=== PATIENT | male | born 1960 | race Caucasian/White ===

== ENCOUNTER 2018-12-12 18:45 | Inpatient (IN) | payer MEDICARE, OTHER | END 2018-12-19 09:55 | disposition other institution (70) | LOC: 4TH 12-14 07:46 → ER 18:45 → ICU 21:00 | PROC: 02HV33Z Insertion of Infusion Device into Superior Vena Cava, Percutaneous Approach (ICD-10-PCS; principal; 2018-12-16 13:28) | DX: A41.9 Sepsis, unspecified organism (principal); R65.20 Severe sepsis without septic shock; E11.52 Type 2 diabetes mellitus with diabetic peripheral angiopathy with gangrene; E11.01 Type 2 diabetes mellitus with hyperosmolarity with coma; L03.116 Cellulitis of left lower limb; N17.9 Acute kidney failure, unspecified; E87.0 Hyperosmolality and hypernatremia; E87.2 Acidosis; E86.0 Dehydration; E11.40 Type 2 diabetes mellitus with diabetic neuropathy, unspecified; J44.9 Chronic obstructive pulmonary disease, unspecified; I10 Essential (primary) hypertension; F17.210 Nicotine dependence, cigarettes, uncomplicated; M19.91 Primary osteoarthritis, unspecified site; Z79.4 Long term (current) use of insulin; Z87.442 Personal history of urinary calculi; Z86.718 Personal history of other venous thrombosis and embolism; Z86.711 Personal history of pulmonary embolism; Z95.828 Presence of other vascular implants and grafts ==

== ENCOUNTER 2018-12-19 08:44 | Inpatient (IN) | payer MEDICARE ==
[~2018-12-19] VITALS: Ht 188 cm; Wt 70.9 kg
[~2018-12-19 08:44] MED LIST: BISA10SU6 RC; GABA-488 PEG; GABA-488 PO; HUM100VI SQ; HUM100VI4 SQ; INSA70301U SQ; INSU100V5 SQ; IPRA3AMP11 INH; LEVO750P2 IV; Levofloxacin GT; OXYC1TAB16 GT; OXYC1TAB16 PEG; SENN1TAB76 JT; Sertraline Hcl JT; WARF6TAB PO; Warfarin Sod GT; Warfarin Sod JT; ZLP5T PO; ZOLP5TAB6 PO
--- NOTE | 2018-12-19 10:05 | NUR ---
Pilo admitted to room 230-1, with an admitting diagnosis of Left Great toe amputation, on 12/19/18 from via 4th floor [facility], via staff transportation. Pilo introduced to surroundings, call light, bed controls, phone, TV, temperature control, lights, meal times, smoking policy, visitor policy, side rail policy, bathrooms and showers. Patient Rights given to patient in the handbook. Pilo verbalizes understanding that [facility] is not responsible for the loss or damage to any personal effects or valuables that are kept in the patients possession during their hospitalization. The following Patient Care Plans were discussed with the Diabetic, Wound Care, and Impaired Mobility and Discharge Planning. Pilo verbalizes understanding of Interdisciplinary Patient Education. Patient and/or family were informed about the Rapid Response Team and its purpose. Patient currently has wound vac intact to LLE, wound care team came and reinforced dressing due to air leak. No issues noted since adjustment. Pain has currently been controlled on ARU.
[2018-12-19] MEDS ORDERED: LOPERAMIDE 2 MG (IMODIUM) CAP PO PRN (10:45)
[2018-12-19] MEDS ORDERED: ONDANSETRON 4 MG/2 ML (SDV) Z0FRAN IV PRN (10:45)
[2018-12-19] MEDS ORDERED: ONDANSETRON 4 MG/2 ML (SDV) Z0FRAN IVP PRN (10:45)
[2018-12-19] MEDS ORDERED: CALCIUM CARBONATE 500 MG (TUMS) TAB.CHEW PO PRN (10:45)
[2018-12-19] MEDS ORDERED: DOCUSATE SODIUM 100 MG (COLACE) CAP PO PRN (10:45)
[2018-12-19] MEDS ORDERED: ACETAMINOPHEN 500 MG TAB (TYLENOL) PO PRN ×2 (10:45)
[2018-12-19] MEDS ORDERED: IBUPROFEN TABLET 200 MG TAB PO PRN (10:45)
[2018-12-19] MEDS ORDERED: diphenhydrAMINE 25 MG TAB (BENADRYL) PO PRN (10:45)
[2018-12-19] MEDS ORDERED: RT-ALBUTEROL/IPRATROPIUM 3 ML (DUONEB) VIAL INH PRN (10:45)
--- NOTE | 2018-12-19 11:00 | Physical Therapy Evaluation ---
PT Evaluation-General Medical Diagnosis Admission Date Dec 19, 2018 at 10:05 Medical Diagnosis: osteomyelitis left great toe/post amputation Onset Date: Dec 16, 2018 Therapy Diagnosis Therapy Diagnosis: weakness; abn gait Height/Weight Height (Feet): 6 Height (Inches): 2.00 Weight (Pounds): 156 Weight (Ounces): 6.4 Precautions Precautions/Isolations: Standard Precautions Weight Bear Status Right Lower Extremity: Right Full Weight Bearing Left Lower Extremity: Left Non Weight Bearing Wound vac left great toe area Referral Physician: Mitsi Reason for Referral: Evaluation/Treatment Medical History Pertinent Medical History: COPD, DM, HTN Additional Medical History neuropathy; acute kidney failure. Current History Pt admitted to hospital on 12/12/18 with osteomyelitis left foot and septic shock. He is post left great toe amputation on 12/16/18 and subsequently has a wound vac in place. Reviewed History: Yes Social History Home: Single Level Current Living Status: Friend Pt has a few options for discharge placement. He is currently staying in [place] with a friend and reports they will have a ramp. He could also go to his brother's home in which he stays in a garage that has a level entry or he could go to his sister's home, in which he says has 5 steps with a handrail to enter. He is unsure where he will discharge to at this time. Prior/Core FIM Prior Level of Function Therapy Code Descriptions/Definitions Functional [place] Measure: 0=Not Assessed/NA 4=Minimal Assistance 1=Total Assistance 5=Supervision or Setup 2=Maximal Assistance 6=Modified [place] 3=Moderate Assistance 7=Complete [place] Therapy Quality Codes: 6 Independent with activity with or without an assistive device 5 Patient requires set up or clean up by helper. Patient completes activity by themselves 4 Supervision or touching assist (CGA). [place] provide cues , steadying assist 3 The helper provides less than half the effort to complete the activity 2 The helper provides more than half the effort to complete the activity 1 Dependent. The helper does all the effort to complete an activity 7 Patient refused to complete or attempt activity 9 The patient did not perform the activity before the current illness or injury 88 Not attempted due to Medical conditions or safety concerns Functional Abilities and Goals: Independent: Patient completed the activities by him/herself, with or without an assistive device, with no assistance from a helper. Needed Some Help: Patient needed partial assistance from another person to complete activities. Dependent: A helper completed the activities for the patient. Unknown: Not Applicable: Bed Mobility: 7 Transfers (B,C,W/C) (FIM): 7 Gait: 7 Stairs: 7 Indoor Mobility (Ambulation): Independent Stairs: Independent community ambulator and still drives. He reports he was active and helping his friend do construction work on his home. Pt reports he has a cane, but it needs a rubber tip. Reports he thinks he will also have access to a walker and a commode at discharge. PT Evaluation-Current Subjective Pt agreeable to PT. Reports he wants to get stronger so he can discharge home. Pain Numeric Pain Scale: 7 Location: Left Location Body Site: Toe (great toe amputation) Pain Description: Ache Comment: Reports he has taken pain meds; isnt asking for more medication at this yary Pt/Family Goals His goals is to discharge from the hospital at a mod indep level; unsure where he will dc to. Objective Patient Orientation: Person, Place, Time, Situation Problem Solving: Good wound vac ROM/Strength ROM Lower Extremities WFL Strenght Lower Extremities Right LE is WFL; left LE is grossly 4-/5 Integumentary/Posture Integumentary Refer to nursing documentation. Bowel Incontinence: No Bladder Incontinence: No Posture normal and symmetrical; upright Neuromuscular (Tone, Coordination, Reflexes) No noted functional deficits. Sensory Vision: Functional Hearing: Functional Hand Dominance: Right Sensation Right Lower Extremit: Intact Sensation Left Lower Extremity: Intact Transfers Therapy Code Descriptions/Definitions Functional [place] Measure: 0=Not Assessed/NA 4=Minimal Assistance 1=Total Assistance 5=Supervision or Setup 2=Maximal Assistance 6=Modified [place] 3=Moderate Assistance 7=Complete [place] Therapy Quality Codes: 6 Independent with activity with or without an assistive device 5 Patient requires set up or clean up by helper. Patient completes activity by themselves 4 Supervision or touching assist (CGA). [place] provide cues , steadying assist 3 The helper provides less than half the effort to complete the activity 2 The helper provides more than half the effort to complete the activity 1 Dependent. The helper does all the effort to complete an activity 7 Patient refused to complete or attempt activity 9 The patient did not perform the activity before the current illness or injury 88 Not attempted due to Medical conditions or safety concerns Transfers (B, C, W/C) (FIM): 3 Roll Left to Right (QC): 4 Supine to/from Sit: 4 Sit to/from Stand: 3 (mod assist from standard height surface) Sit to Lying (QC): 4 Lying to Sitting/Side of Bed(Q: 4 Sit to Stand (QC): 4 Chair/Tea-fl-Ftncf Xfer(QC): 4 Car Transfer (QC): 4 CGA for all functional transfers with skilled cues for sequencing and safety 50 % of the time. Gait Does the Patient Walk?: Yes Mode of Locomotion: Both Anticipated Mode of Locomotion: Both Gait (FIM): 1 Distance (FIM): 1=up to 49 ft Walk 10 feet (QC): 4 (min assist for safety and balance. ) Walk 50 ft with 2 Turns(QC): 88 Walk 150 ft (QC): 88 Walking 10ft/uneven surface-QC: 88 (unsafe to attempt due to decreased balacne. ) Distance: 10 ft Gait Level of Assist: 4 Gait Persons Needed: 1 Gait Assistive Device: FWW Wheelchair Training Does the Pt Use a Wheelchair?: Yes Wheelchair (FIM): 4 Wheelchair Distance (FIM): 3=150 ft Wheelchair Level of Assist: 4 Wheel 50 ft with 2 turns (QC): 4 Wheel 150 ft (QC): 4 Type of Wheelchair: Manual Stairs Stairs (FIM): 0 (unsafe to attempt; new at NWB and fall risk ) 1 Step (curb) (QC): 88 4 Steps (QC): 88 12 Steps (QC): 88 If not tested on admit;explain unsafe to attempt; fall risk Balance Sitting Static: Good Sitting Dynamic: Good Standing Static: Fair Standing Dynamic: Fair Picking up an Object (QC): 88 Treatment Treatment consisted of multiple sit to stand transfer training tasks with skilled cues for hand placement and task segmentation. Pt stood at toilet to urinate with FWW with min assist for balance. Education on ARU and what to expect during stay. EDucation on NWB status. Assessment/Needs Pt presents post great toe amputation left foot. He is now NWB until further healing. Due to new NWB status, he requires additional assist with all functional transfers and is limited in gait distance. His balance is impaired as well. He will benefit from skilled P T to progress functional strength and balance to allow him to safelty transfer and ambulate functional distances to return home and care for himself. Rehab Potential: Good PT Short Term Goals Short Term Goals Time Frame: Dec 26, 2018 Transfers (B,C,W/C) (FIM): 5 Gait (FIM): 2 Distance (FIM): 3=560-49 ft Gait Assistive Device: FWW Stairs (FIM): 2 # of Steps: 1 PT Prison Goals Prison Goals PT Prison Goals Time Frame: Jan 06, 2019 Transfers (B,C,W/C) (FIM): 6 Sit to Lying (QC): 6 Lying-Sitting on Side/Bed(QC): 6 Sit to Stand (QC): 6 Roll Left to Right (QC): 6 Chair/Duv-pe-Khxjm Xfer(QC): 6 Car Transfer (QC): 6 Does the Patient Walk: Yes Gait (FIM): 6 Gait distance (FIM): 3=150 ft Walk 10 feet (QC): 6 Walk 10ft-Uneven Surface(QC): 6 Walk 50ft with 2 Turns (QC): 6 Walk 150 ft (QC): 6 Gait Assistive Device: FWW Does the Pt use WC or Scooter?: Yes Wheelchair (FIM): 6 Wheelchair distance (FIM): 3=150 ft Wheel 50 feet with 2 turns (QC: 6 Stairs (FIM): 5 # of Steps: 4 1 Step (curb) (QC): 6 4 Steps (QC): 6 12 Steps (QC): 88 Picking up an Object (QC): 88 MOd indep with all functional mobility is LTG PT Plan Problem List Problem List: Activity Tolerance, Functional Strength, Safety, Balance, Gait, Transfer, Bed Mobility Treatment/Plan Treatment Plan: Continue Plan of Care Treatment Plan: Bed Mobility, Education, Functional Activity Araceli, Functional Strength, Group Therapy, Gait, Safety, Therapeutic Exercise, Transfers Treatment Duration: Jan 06, 2019 Frequency: At least 5 of 7 days/Wk (IRF) Estimated Hrs Per Day: 1.5 hours per day Patient and/or Family Agrees t: Yes Safety Risks/Education Patient Education: Transfer Techniques, Safety Issues Teaching Recipient: Patient Teaching Methods: Demonstration, Discussion Response to Teaching: Reinforcement Needed Discharge Recommendations Therapy D/C Recommendations: Physical Therapy Home Care Time/GCodes Time In: 955 Time Out: 1055 Total Billed Treatment Time: 60 Total Billed Treatment visit EVM 30 FA 30 JENNA HOGUE PT Dec 19, 2018 11:00
--- NOTE | 2018-12-19 11:56 | NUR ---
REVIEWED MEDICATIONS THEY WERE REPORTED UPON ADMISSION TO 4TH FLOOR.
[2018-12-19] MEDS: inSUlin ASPART (NovoLOG) 1 UNIT/0.01 ML (CHARGE PER UNIT) SC SCH ×3 (12:11→21:23)
[2018-12-19 12:20] VITALS: BP 117/79
--- NOTE | 2018-12-19 13:03 | NUR ---
Initial Assessment Visited with patient regarding the inpatient rehab program. The patient reports he currently lives with friends in [place], [place]. He reports there will be an entry ramp at the home. If he is not able to return to his current living situation, he reports he can stay with his brother or sister. He reports he would stay in a finished garage with level entry at his brother's house. If he discharged to his sister's home, he would have to be able to go up and down 5 steps with a rail to enter the home. He currently uses [facility] in [place], [place] to fill prescriptions. He reports he has access to a walker and BSC that were his mother's and the equipment is currently at his brother's house. He states he does have a cane, but it is missing the rubber piece that fits on the bottom of the cane. He is noted to have a wound vac on the left great toe amputation site. The patient is cooperative and willing to participate with therapies. Discharge destination will depend upon progress and the patient's needs at time of discharge.
--- NOTE | 2018-12-19 13:27 | Occupational Therapy Eval ---
OT Evaluation-General/PLF Medical Diagnosis Admission Date Dec 19, 2018 at 10:05 Medical Diagnosis: osteomyelitis left great toe/post amputation Onset Date: Dec 16, 2018 Therapy Diagnosis Therapy Diagnosis: decreased self care skills Height/Weight Height (Feet): 6 Height (Inches): 2.00 Weight (Pounds): 156 Weight (Ounces): 6.4 Precautions Precautions/Isolations: Standard Precautions Weight Bear Status Weight Bearing Restriction: Non Weight Bearing Location Restriction: Aiden AREVALO Referral Physician: Misti Medical History Pertinent Medical History: COPD, DM, HTN Additional Medical History trach, vascular surgery, DVT, neuropathy, kidney stones, renal failure, arthritis, Current History pt s/p left great toe amputation. now with wound vac in place. Reviewed History: Yes Social History Home: Single Level Current Living Status: Friend Pt states he is not sure where he will be going at d/c. ADL-Prior Level of Function Therapy Code Descriptions/Definitions Functional [place] Measure: 0=Not Assessed/NA 4=Minimal Assistance 1=Total Assistance 5=Supervision or Setup 2=Maximal Assistance 6=Modified [place] 3=Moderate Assistance 7=Complete [place] Therapy Quality Codes: 6 Independent with activity with or without an assistive device 5 Patient requires set up or clean up by helper. Patient completes activity by themselves 4 Supervision or touching assist (CGA). [place] provide cues , steadying assist 3 The helper provides less than half the effort to complete the activity 2 The helper provides more than half the effort to complete the activity 1 Dependent. The helper does all the effort to complete an activity 7 Patient refused to complete or attempt activity 9 The patient did not perform the activity before the current illness or injury 88 Not attempted due to Medical conditions or safety concerns Functional Abilities and Goals: Independent: Patient completed the activities by him/herself, with or without an assistive device, with no assistance from a helper. Needed Some Help: Patient needed partial assistance from another person to complete activities. Dependent: A helper completed the activities for the patient. Unknown: Not Applicable: Self Care: Independent Functional Cognition: Independent Drive Self: Yes OT Current Status Subjective Pt sitting in chair, agrees to therapy. Pt reports 7/10 pain in left foot. Mental Status/Objective Patient Orientation: Person, Place, Situation Attachments: Other-See Comments Current Glasses/Contacts: Yes Hearing Aids: No Dentures/Partials: Yes Hand Dominance: Right Upper Extremity ROM grossly WFL Upper Extremity Coordination intact Upper Extremity Sensation intact per pt report Upper Extremity Strength grossly 4/5 ADL-Treatment ADL-Current Pt participated in UE assessment while seated. Sponge bath completed seated in chair. Upper body bathing completed with set up. Pt able to wash bilateral LE with SBA. Unable to wash left foot secondary to wound vac placement. Pt washed buttocks by weight shifting side to side rather than standing. Don pullover shirt with set up. Pt required assist to start shorts over left foot, but was able to thread right foot into shorts. Pulled shorts up over hips while seated. Don right sock with set up. Unable to don left sock secondary to wound vac. Grooming tasks completed seated in chair. Pt brushed dentures and combed hair with set up. Eating (FIM): 6 Eating (QC): 6 Grooming (FIM): 5 Oral Hygiene (QC): 5 Bathing (FIM): 4 Shower/Bathe Self (QC): 4 Upper Body Dressing (FIM): 5 Upper Body Dressing (QC): 5 Lower Body Dressing (FIM): 4 Lower Body Dressing (QC): 3 On/Off Footwear (QC): 5 Toilet/Commode Transfer (FIM): 4 (pt demonstrates ability to perform transfer with minimal assistance using FWW. NWB left LE) Toilet Transfer (QC): 4 Education OT Patient Education: Rehab process Teaching Recipient: Patient Teaching Methods: Discussion Response to Teaching: Verbalize Understanding OT Short Term Goals Short Term Goals Time Frame: Dec 26, 2018 Toileting(FIM): 5 Transfers (B,C,W/C) (FIM): 5 Toilet/Commode Transfer(FIM): 5 Additional Short Term Goals: 1-Demonstrate ADL Tasks, 2-Verbalize Understanding , 3-ImproveStrength/Araceli 1=Demonstrate adherence to instructed precautions during ADL tasks. 2=Patient will verbalize/demonstrate understanding of assistive devices/ modifications for ADL. 3=Patient will improve strength/tolerance for activity to enable patient to perform ADL's. OT Assistant Child Care Teacher Goals Assistant Child Care Teacher Goals Time Frame: Jan 09, 2019 Eating (FIM): 6 Eating (QC): 6 Groomin Oral Hygiene (QC): 6 Bathing(FIM): 6 Shower/Bathe Self (QC): 6 Upper Body Dressing(FIM): 6 Upper Body Dressing (QC): 6 Lower Body Dressing(FIM): 6 Lower Body Dressing (QC): 6 On/Off Footwear (QC): 6 Toileting(FIM): 6 Toileting Hygiene (QC): 6 Toilet/Commode Transfer(FIM): 6 Toilet/Commode Transfer (QC): 6 Additional Goals: 1-Demonstrate ADL Tasks, 2-Verbalize Understanding, 3- ImproveStrength/Araceli 1=Demonstrate adherence to instructed precautions during ADL tasks. 2=Patient will verbalize/demonstrate understanding of assistive devices/ modifications for ADL. 3=Patient will improve strength/tolerance for activity to enable patient to perform ADL's. OT Education/Plan Problem List/Assessment Assessment: Decreased Activ Tolerance, Decreased UE Strength, Dependent Transfers, Impaired I ADL's, Impaired Self-Care Skills Pt s/p left great toe amputation. Pt now has wound vac in place and is NWB left foot. Pt demonstrates decreased mobility, strength, ADL functioning, and activity tolerance. Pt to benefit from skilled OT intervention for ADL training , transfers, strengthening, and home safety education to increase functional independence and allow safe discharge plan. Discharge Recommendations Plan/Recommendations: Continue POC Treatment Plan/Plan of Care Treatment,Training & Education: Yes Patient would benefit from OT for education, treatment and training to promote independence in ADL's, mobility, safety and/or upper extremity function for ADL' s. Plan of Care: ADL Retraining, Functional Mobility, Group Exercise/Act as Ind, UE Funct Exercise/Act Treatment Duration: Jan 09, 2019 Frequency: At least 5 of 7 days/Wk (IRF) Estimated Hrs Per Day: 1.5 hours per day Agreement: Yes Rehab Potential: Good Time/GCodes Start Time: 11:00 Stop Time: 12:00 Total Time Billed (hr/min): 60 Billed Treatment Time 1 visit EVM(15minutes), ADLx3(45minutes) DONNIE COVINGTON OT Dec 19, 2018 13:27
[2018-12-19] MEDS: ENOXAPARIN 40 MG/0.4 ML (LOVENOX) SYR SC SCH (14:26)
[2018-12-19] MEDS: fentaNYL INJECTION 100 MCG/2 ML AMP IVP PRN (14:27)
--- NOTE | 2018-12-19 14:34 | ST Cognitive Linguistic Eval ---
Speech Evaluation-General Medical Diagnosis osteomyelitis left great toe/post amputation Onset Date: Dec 16, 2018 Therapy Diagnosis Therapy Diagnosis: Cognitive-communication Precautions Precautions/Isolations: Standard Precautions Medical History Pertinent Medical History: COPD, DM, HTN Reviewed History: Yes Social History Current Living Status: Friend Speech PLF-Current Status Prior Level of Function Patient lived at his own home and was independent with his daily needs. Subjective Patient was pleasant and attentive during the evaluation process. Language Eval: Auditory Comprehends Simple Yes/No Ques: Functional Indent/Objects [place]: Functional Ident/Pics in [place]: Functional Follows 1-Step Commands: Functional Follows Complex Directions: Functional Follows General Conversations: Functional Language Eval: Verbal Language Completes Spontaneous Greeting: Functional Produces Auto, Serial Info: Functional Imitates Simple Words/Phrases: Functional Word Finding: Functional Requests Basic Needs: Functional States Basic Personal Info: Functional Expresses Complex Ideas: Functional Objective Cognitive Domain Attention: WNL Memory: WNL Problem Solving: Functional Executive Functions: 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 Impression Patient is a pleasant 58 year old man who was admitted to the ARU due to amputation of his left great toe. He was very pleasant during the evaluation and was a good historian. He has a positive attitude regarding his recovery and is anticipated to do as well as expected. Patient's test results are all within the normal range for cognitive communication. Communication/Social Cognition Comprehension: 7 Expression: 7 Social Interaction: 7 Problem Solvin Memory: 7 Speech Patient Assess Expression of Ideas/Wants: Expression (4) Understanding Verbal Content: Understands (4) Brief Interview-Mental Status: Yes Repetition of Three Words: Three (3) Temporal Orientation: Year: Correct (3) Temporal Orientation: Day: Correct (1) Recall : Wear to say "Sock": Yes, no cue required (2) Recall : Color: Yes, no cue required (2) Recall : Bed: Yes, no cue required (2) Memory/Recall Ability: Current season, That he or she is in a hsp/hsp unit Speech-Plan Patient/Family Goals Patient/Family Goals: Patient plans to return home post rehab. Treatment Plan Speech Therapy Treatment Plan: Discontinue ST, Goals Met Patient is not recommended for skilled ST at this time. Treatment Duration: Dec 19, 2018 Frequency: 1 time per week Estimated Hrs Per Day: .5 hour per day Rehab Potential: Good Barriers to Learning: Patient is in pain at times. Pt/Family Agrees to Plan: Yes Safety Risks/Education Teaching Recipient: Patient Teaching Methods: Discussion Response to Teaching: Verbalize Understanding Education Topics Provided: Safety within his room. Time Speech Therapy Time In: 12:45 Speech Therapy Time Out: 13:00 Total Billed Time: 15 Billed Treatment Time 1, SPSNDCOMP No YULIANA BRUCE Dec 19, 2018 14:34
--- NOTE | 2018-12-19 14:57 | Therapy Group Daily Note ---
Therapy Daily Group Note Patient Education Topic Other List Below (memory) Exercises LE Seated Exercise, UE Exercise Other/Notes Pt participated in group therapy with 4 to 1 ratio. Goals of session: Pt will verbalize understanding of memory strategies (met). Lead one UE or LE seated exercise during group therapy (met). Pt transported via w/c to [facility] for OT/PT group. Group consisted on introductions (name, place living, what would you name a cheetah), socialization , pt led UE/LE seated exercises, memory education/strategies and memory activity. Pt introduced self appropriately and actively listened to peers. Pt acknowledged understanding of memory strategies/education by verbalizing personal strategies. Pt was able to lead one exercise without difficulty then complete rest of exercises. During memory activity pt was able to match pictures on turn. Pt will benefit from group by increasing short term memory and use strategies during daily functional tasks. Pt will be able to complete UE/LE seated exercises after discharge. Pt would doze off during therapy, woke easily and answer questions appropriately. After group, pt transported via w/c back to room and laid in bed. Call light/phone in reach. All needs met in room. Start Time: 13:00 Stop Time: 14:15 Total Billed Treatment Time: 75 Total Billed Treatment 1-GRP JENNA ALLEN Dec 19, 2018 14:57
[2018-12-19] MEDS: inSUlin Protamine/ASPart 70/30 1 UNIT/0.01 ML DOSE SC SCH (16:39)
[2018-12-19] MEDS: HYDROcodone/APAP 5 MG/325 MG (LORTAB) TAB PO PRN ×2 (16:43→21:27)
[2018-12-19 18:40] VITALS: BP 142/75
[2018-12-19] MEDS: RT-ADVAIR HFA 115/21 MCG PER PUFF IH SCH (20:01)
[2018-12-20] MEDS: HYDROcodone/APAP 5 MG/325 MG (LORTAB) TAB PO PRN ×4 (02:51→21:04)
[2018-12-20] MEDS: fentaNYL INJECTION 100 MCG/2 ML AMP IVP PRN ×5 (03:38→21:38)
[2018-12-20 06:00] VITALS: BP 152/86
[2018-12-20] MEDS: inSUlin ASPART (NovoLOG) 1 UNIT/0.01 ML (CHARGE PER UNIT) SC SCH ×4 (06:30→21:05)
[2018-12-20] MEDS: inSUlin Protamine/ASPart 70/30 1 UNIT/0.01 ML DOSE SC SCH ×3 (06:31→17:26)
--- NOTE | 2018-12-20 06:45 | PM&R H&P / Post Admit Assess ---
History of Present Illness HPI/Chief Complaint CC: Left great toe amputation HPI: This is a 58-year-old white male clinic patient of [facility] with a past medical history of diabetes and 3 years ago a debilitating critical illness resulted in long course in inpatient rehab and even a feeding tube who presents to the inpatient rehab for amputation education and therapy after a left great toe amputation due to severe osteomyelitis and nonhealing wound. Patient has a wound VAC and pain is controlled. Hyperglycemia will be managed with increase insulin dose of his 70/30 insulin that he takes at home. Patient is malnourished and will be encouraged to take in adequate nutrition. He will be discharged home after recovery. Source: patient Exam Limitations: no limitations Date Seen 12/19/18 Time Seen by a Provider: 10:30 Attending Physician Nat Chappell DO [facility] Referring Physician Date of Admission Dec 19, 2018 at 10:05 Home Medications & Allergies Home Medications Reviewed patient Home Medication Reconciliation performed by pharmacy medication reconciliations fresh foods technician and/or nursing. Patients Allergies have been reviewed. Allergies Allergies Coded Allergies No Known Drug Allergies (Unverified05/08/15) Past Fyigdfy-Omptlu-Bfuqnh Hx Past Med/Social Hx: Reviewed Nursing Past Med/Soc Hx, Reviewed and Corrections made Patient Social History Marrital Status: single Employed/Student: unemployed Alcohol Use: Past History Recreational Drug Use: Yes Smoking Status: Light Tobacco Smoker Physical Abuse Screen: No Sexual Abuse: No Recent Foreign Travel: No (N) Contact w/other who traveled: No Recent Hopitalizations: No Recent Infectious Disease Expo: No Immunizations Up To Date Tetanus Booster (TDap): Unknown Pediatric: No Date of Pneumonia Vaccine: May 31, 2015 Date of Influenza Vaccine: Dec 18, 2018 Seasonal Allergies Seasonal Allergies: No Past Medical History Surgeries: Orthopedic, Tracheostomy Respiratory: COPD, Pneumonia Currently Using CPAP: No Currently Using BIPAP: No Cardiac: Deep Vein Thrombosis, Hypertension Neurological: Neuropathy Reproductive: No Sexually Transmitted Disease: No HIV/AIDS: No Genitourinary: Kidney Stones Musculoskeletal: Amputee, Arthritis Endocrine: Diabetes, Insulin dep Are Your Blood Sugars Over 250: Yes Loss of Vision: Denies Hearing Impairment: Denies Did You Recieve Any Treatments: No History of Blood Disorders: No (Previous tranfusions noted. ) Adverse Reaction to Blood Thompson: No Family History Patient reports no known family medical history. CAD Over 55 Years Old Review of Systems Constitutional: see HPI, weakness EENTM: no symptoms reported Respiratory: no symptoms reported Cardiovascular: no symptoms reported Gastrointestinal: no symptoms reported Genitourinary: no symptoms reported Musculoskeletal: no symptoms reported, other Skin: no symptoms reported Psychiatric/Neurological: No Symptoms Reported All Other Systems Reviewed Negative Unless Noted: Yes Physical Exam Physical Exam Vital Signs Vital Signs - First Documented 12/19/18 12:20 Temp 97.8 Pulse 74 Resp 16 B/P (MAP) 117/79 (92) Pulse Ox 97 O2 Delivery Room Air Capillary Refill : Height, Weight, BMI Height: 6'2.00" Weight: 156lbs. 6.4oz. [id number]; 20.1 BMI Method:Estimated General Appearance: No Apparent Distress, WD/WN, Chronically ill, Thin Eyes: Bilateral Eye Normal Inspection, Bilateral Eye PERRL HEENT: PERRL/EOMI, Normal ENT Inspection, Pharynx Normal Neck: Full Range of Motion, Normal Inspection, Non Tender, Supple, Carotid Bruit Respiratory: Chest Non Tender, Lungs Clear, Normal Breath Sounds, No Accessory Muscle Use, No Respiratory Distress Cardiovascular: Regular Rate, Rhythm, No Edema, No Gallop, No JVD, No Murmur, Normal Peripheral Pulses Gastrointestinal: Normal Bowel Sounds, No Organomegaly, No Pulsatile Mass, Non Tender, Soft Back: Normal Inspection, No CVA Tenderness, No Vertebral Tenderness Extremity: Normal Capillary Refill, Normal Inspection, Normal Range of Motion, Non Tender, No Calf Tenderness, No Pedal Edema, Other (left great toe amputation wound vac in place) Neurologic/Psychiatric: Alert, Oriented x3, No Motor/Sensory Deficits, Normal Mood/Affect Skin: Normal Color, Warm/Dry Lymphatic: No Adenopathy Results Results/Procedures Labs Patient resulted labs reviewed. Assessment/Plan Admission Diagnosis Assessment: s/p Septic shock due to cellulitis and osteomyelitis of the left great toe s/p Hyperosmolar nonketotic state requiring insulin drip s/;p Acute renal failure Long-standing debility dating back to 2014 when reviewed inpatient rehab course History of bilateral pneumonia with respiratory failure requiring intubation at [facility] 3 years ago DM on insulin Malnourished Plan: Rehab for wound vac and amputation training Insulin dose increased Admission Status: Inpatient Order (span 2 midnights) Reason for Inpatient Admission: IRF Diagnosis/Problems Diagnosis/Problems (1) Amputation toe Status: Acute (2) Diabetes mellitus with insulin therapy Status: Chronic (3) Malnourished Status: Acute Qualifiers: Malnutrition type: unspecified type Qualified Codes: E46 - Unspecified protein-calorie malnutrition (4) Osteomyelitis of left lower extremity Status: Resolved Resolution Date/Time: 12/20/18 @ 06:40 (5) COPD (chronic obstructive pulmonary disease) Status: Chronic Qualifiers: COPD type: unspecified COPD Qualified Codes: J44.9 - Chronic obstructive pulmonary disease, unspecified (6) Septic shock Status: Resolved Resolution Date/Time: 12/16/18 @ 06:41 (7) HHNC (hyperglycemic hyperosmolar nonketotic coma) Status: Resolved Resolution Date/Time: 12/16/18 @ 06:41 Post Admission Physician Asses Date seen by provider: Dec 19, 2018 Time seen by provider: 10:30 Admisison Dx: (1) Amputation toe Status: Acute The preadmission screen agrees with the post admission assessment that the patient is a good candidate for inpatient rehabilitation. The patient will have a comprehensive program of inpatient rehabilitation with a goal of maximizing level of functional independence prior to discharge home with family. The patient will have PT/OT ninety minutes per day, each discipline, five days a week for gait, strengthening, conditioning, balance, ADLs, any patient/family/caregiver training as necessary. Speech therapy to do cognitive assessment and treat as indicated. Rehabilitation nursing to assist with bowel, bladder, skin, wound care, medication administration, pain management. Wrist Hemmer to assist with discharge planning, community reentry. SCD's for DVT prophylaxis. He appears to be well motivated to participate in three hours of therapy a day. He should be able to tolerate three hours of therapy a day from a medical standpoint. He should benefit from the three hours of therapy a day. He has a reasonable discharge plan, reasonable discharge rehabilitation goals and a supportive family. He has various comorbidities that need to be closely monitored with medications and treatments adjusted on a daily basis as needed. These include: see list above Barriers to discharge for this patient who had been independent prior to this are for him to be modified independent to supervision for ADLs and mobility skills prior to discharge home with [family], so as to lessen the burden of the caregivers. Risks for this patient include: 1. Fall 2. Fracture 3. DVT 4. Pulmonary embolism 5. Wound infection 6. Skin breakdown 7. Contractures 8. Poorly controlled pain 9. Urinary retention 10. UTI 11. Respiratory infection 12. Aspiration Estimated Length of Stay: 7 days Prognosis: Rehab prognosis appears good for goal of discharge home with family modified independent to supervision for ADLs and mobility skills. General: Alert, Oriented X3, Cooperative, No Acute Distress, Other (thin) HEENT: Atraumatic, PERRLA Neck: Supple, No JVD, No Thyromegaly, +2 Carotid Pulse No Bruit, No LAD Lungs: Clear to Auscultation, Normal Air Movement Heart: Regular Rate, Normal S1, Normal S2 Abdomen: Normal Bowel Sounds, Soft, No Tenderness, No Hepatosplenomegaly, No Masses Extremities: No Clubbing, No Cyanosis, No Edema, Normal Pulses, No Tenderness/ Swelling Skin: No Rashes, No Breakdown, No Significant Lesion Neuro: Normal Speech, Strength at 5/5 X4 Ext, Normal Tone, Sensation Intact, Cranial Nerves 3-12 NL, Reflexes 2+, Other (limping gait left foot wound vac in place) Psych/Mental Status: Mental Status NL, Mood NL NAT CHAPPELL DO Dec 20, 2018 06:45
--- NOTE | 2018-12-20 07:35 | NUR ---
Pt's finger stick glucose 164 this morning. Pt received NovoLog 70/30 20 units SQ with breakfast. New order from Dr. Chappell to increase NovoLog to 25 units with meals. Will begin this order at lunch time.
[2018-12-20 08:05] LABS: HEMOGLOBIN 11.4 G/DL (13.3-17.7); MEAN PLATELET VOLUME 10.1 FL (7.4-10.4); RED CELL DISTRIBUTION WIDTH 13.8 % (10.0-14.5); WHITE BLOOD COUNT 7.3 10^3/uL (4.3-11.0)
[2018-12-20 08:24] LABS: ALANINE AMINOTRANSFERASE 11 U/L (0-55); ALBUMIN 2.7 GM/DL (3.2-4.5); ALKALINE PHOSPHATASE 96 U/L (40-136); BILIRUBIN,TOTAL 0.1 MG/DL (0.1-1.0); BUN/CREATININE RATIO 20; CALCIUM 8.8 MG/DL (8.5-10.1); CARBON DIOXIDE 23 MMOL/L (21-32); CHLORIDE 101 MMOL/L (98-107); CREATININE SERUM 0.99 MG/DL (0.60-1.30); GFR ESTIMATED > 60; GLUCOSE 282 MG/DL (70-105); POTASSIUM 4.2 MMOL/L (3.6-5.0); SODIUM 132 MMOL/L (135-145); TOTAL PROTEIN 6.7 GM/DL (6.4-8.2)
[2018-12-20] MEDS: RT-ADVAIR HFA 115/21 MCG PER PUFF IH SCH (10:37)
--- NOTE | 2018-12-20 11:39 | Physical Therapy Daily Note ---
PT Daily Note-Current Subjective Pt reporting he is in too much pain to get out of bed this morning. Transfers Therapy Code Descriptions/Definitions Functional [place] Measure: 0=Not Assessed/NA 4=Minimal Assistance 1=Total Assistance 5=Supervision or Setup 2=Maximal Assistance 6=Modified [place] 3=Moderate Assistance 7=Complete [place] Therapy Quality Codes: 6 Independent with activity with or without an assistive device 5 Patient requires set up or clean up by helper. Patient completes activity by themselves 4 Supervision or touching assist (CGA). Fine provide cues , steadying assist 3 The helper provides less than half the effort to complete the activity 2 The helper provides more than half the effort to complete the activity 1 Dependent. The helper does all the effort to complete an activity 7 Patient refused to complete or attempt activity 9 The patient did not perform the activity before the current illness or injury 88 Not attempted due to Medical conditions or safety concerns Weight Bearing Right Lower Extremity: Right Full Weight Bearing Left Lower Extremity: Left Non Weight Bearing Wound vac left great toe area Exercises Supine Ex: Ankle pumps, Quad Set, Glut sets, Heel Slides, Knee to chest, Short Arc Quads, Straight leg raise, Hip abd/add Supine Reps: 10 Assessment Performed AAROM to (B) LEs with end range stretch as tolerated. PT Short Term Goals Short Term Goals Time Frame: Dec 26, 2018 Transfers (B,C,W/C) (FIM): 5 Gait (FIM): 2 Distance (FIM): 2=647-80 ft Gait Assistive Device: FWW Stairs (FIM): 2 # of Steps: 1 PT Chcf Goals Chcf Goals PT Chcf Goals Time Frame: Jan 06, 2019 Transfers (B,C,W/C) (FIM): 6 Sit to Lying (QC): 6 Lying-Sitting on Side/Bed(QC): 6 Sit to Stand (QC): 6 Roll Left to Right (QC): 6 Chair/Fqh-cn-Dxyln Xfer(QC): 6 Car Transfer (QC): 6 Does the Patient Walk: Yes Gait (FIM): 6 Gait distance (FIM): 3=150 ft Walk 10 feet (QC): 6 Walk 10ft-Uneven Surface(QC): 6 Walk 50ft with 2 Turns (QC): 6 Walk 150 ft (QC): 6 Gait Assistive Device: FWW Does the Pt use WC or Scooter?: Yes Wheelchair (FIM): 6 Wheelchair distance (FIM): 3=150 ft Wheel 50 feet with 2 turns (QC: 6 Stairs (FIM): 5 # of Steps: 4 1 Step (curb) (QC): 6 4 Steps (QC): 6 12 Steps (QC): 88 Picking up an Object (QC): 88 PT Plan Treatment/Plan Treatment Plan: Continue Plan of Care Treatment Plan: Bed Mobility, Education, Functional Activity Araceli, Functional Strength, Group Therapy, Gait, Safety, Therapeutic Exercise, Transfers Treatment Duration: Jan 06, 2019 Frequency: At least 5 of 7 days/Wk (IRF) Estimated Hrs Per Day: 1.5 hours per day Patient and/or Family Agrees t: Yes Time/GCodes Time In: 820 Time Out: 835 Total Billed Treatment Time: 15 Total Billed Treatment visit, exercise 15 min LUDA PICKERING PT Dec 20, 2018 11:39
--- NOTE | 2018-12-20 12:31 | NUR ---
Dr. Chappell here to see patient. Informed of Mag (1.6) on 12/19/18 and no BM since 12/15. New orders for Miralax PO BID.
[2018-12-20] MEDS: ENOXAPARIN 40 MG/0.4 ML (LOVENOX) SYR SC SCH (13:33)
--- NOTE | 2018-12-20 14:13 | PM&R Progress Note ---
Subjective HPI/CC On Admission Date Seen by Provider: Dec 20, 2018 Time Seen by Provider: 12:30 CC: Left great toe amputation HPI: This is a 58-year-old white male clinic patient of [facility] with a past medical history of diabetes and 3 years ago a debilitating critical illness resulted in long course in inpatient rehab and even a feeding tube who presents to the inpatient rehab for amputation education and therapy after a left great toe amputation due to severe osteomyelitis and nonhealing wound. Patient has a wound VAC and pain is controlled. Hyperglycemia will be managed with increase insulin dose of his 70/30 insulin that he takes at home. Patient is malnourished and will be encouraged to take in adequate nutrition. He will be discharged home after recovery. Subjective/Events-last exam We'll discontinue nebulizer treatments and Advair inhaler per patient request No bowel movement and on Colace so we'll add MiraLAX Blood sugars improved since increasing 70/30 insulin home dose Pain is improved with fentanyl at times and he does try to not take pain medication Overall improving slowly Review of Systems Gastrointestinal: Constipation Musculoskeletal: leg pain Objective Exam Vital Signs Vital Signs Date Time Temp Pulse Resp B/P (MAP) Pulse Ox O2 Delivery O2 Flow Rate FiO2 12/20/18 10:37 99 Room Air 12/20/18 06:00 97.8 68 18 152/86 (108) Capillary Refill : General Appearance: No Apparent Distress, WD/WN, Chronically ill, Thin Respiratory: Chest Non Tender, Lungs Clear, Normal Breath Sounds, No Accessory Muscle Use, No Respiratory Distress Cardiovascular: Regular Rate, Rhythm, No Edema, No Gallop, No JVD, No Murmur, Normal Peripheral Pulses Extremity: Other (wound vac in place left great toe region) Neurologic/Psychiatric: Alert, Oriented x3, No Motor/Sensory Deficits, Normal Mood/Affect Results/Procedures Lab Laboratory Tests 12/20/18 07:32 Patient resulted labs reviewed. Assessment/Plan Assessment and Plan Assess & Plan/Chief Complaint Assessment: s/p Septic shock due to cellulitis and osteomyelitis of the left great toe s/p Hyperosmolar nonketotic state requiring insulin drip s/p Acute renal failure Long-standing debility dating back to 2014 when reviewed inpatient rehab course History of bilateral pneumonia with respiratory failure requiring intubation at [facility] 3 years ago DM on insulin Malnourished Plan: Rehab for wound vac and amputation training Insulin dose increased DC Nebs and Advair Diagnosis/Problems Diagnosis/Problems (1) Amputation toe Status: Acute (2) Diabetes mellitus with insulin therapy Status: Chronic (3) HHNC (hyperglycemic hyperosmolar nonketotic coma) Status: Resolved Resolution Date/Time: 12/16/18 @ 06:41 (4) Malnourished Status: Acute Qualifiers: Malnutrition type: unspecified type Qualified Codes: E46 - Unspecified protein-calorie malnutrition (5) COPD (chronic obstructive pulmonary disease) Status: Chronic Qualifiers: COPD type: unspecified COPD Qualified Codes: J44.9 - Chronic obstructive pulmonary disease, unspecified Clinical Quality Measures DVT/VTE Risk/Contraindication: Risk Factor Score Per Nursin RFS Level Per Nursing on Admit: 4+=Very High ZACKERY PETERS DO Dec 20, 2018 14:13
[2018-12-20 16:29] VITALS: BP 117/70
[2018-12-20] MEDS: POLYETHYLENE GLYCOL 17 GM (MIRALAX) PACK PO SCH (21:02)
--- NOTE | 2018-12-20 22:58 | NUR ---
2300 Wound-Vac alarming blockage multiple times, tubing is free of kinks or twists, clamps are open, canister in placed and secured, Wound-Vac system below level of incision site and it is connected to the wall outlet. Dr. Jose notified, new order to remove Wound-Vac dressing and apply wet to dry dressing on left great toe amputation incision and re-apply Wound-Vac dressing in am or Saturday. 0 Wound-Vac dressing removed, wet to dry dressing applied. Pt tolerated procedure well. No s/s of infection in the incision.
[2018-12-21] MEDS: HYDROcodone/APAP 5 MG/325 MG (LORTAB) TAB PO PRN ×3 (01:36→15:21)
[2018-12-21 05:38] VITALS: BP 131/77
[2018-12-21 05:51] LABS: BASOPHILS % (AUTO) 0 % (0-10); EOSINOPHILS # (AUTO) 0.2 10^3/uL (0.0-0.3); EOSINOPHILS % (AUTO) 2 % (0-10); HEMATOCRIT 36 % (40-54); HEMOGLOBIN 11.3 G/DL (13.3-17.7); LYMPHOCYTES # (AUTO) 2.8 X 10^3 (1.0-4.0); LYMPHOCYTES % (AUTO) 35 % (12-44); MEAN CORPUSCULAR HEMOGLOBIN 28 PG (25-34); MEAN CORPUSCULAR HGB CONC 32 G/DL (32-36); MEAN CORPUSCULAR VOLUME 88 FL (80-99); MEAN PLATELET VOLUME 9.7 FL (7.4-10.4); MONOCYTES # (AUTO) 0.5 X 10^3 (0.0-1.0); MONOCYTES % (AUTO) 6 % (0-12); NEUTROPHILS # (AUTO) 4.4 X 10^3 (1.8-7.8); NEUTROPHILS % (AUTO) 56 % (42-75); PLATELET COUNT 299 10^3/uL (130-400); RED CELL DISTRIBUTION WIDTH 14.2 % (10.0-14.5); WHITE BLOOD COUNT 7.9 10^3/uL (4.3-11.0)
[2018-12-21 06:04] LABS: ALANINE AMINOTRANSFERASE 12 U/L (0-55); ALBUMIN 2.8 GM/DL (3.2-4.5); ALKALINE PHOSPHATASE 87 U/L (40-136); BILIRUBIN,TOTAL 0.1 MG/DL (0.1-1.0); BUN/CREATININE RATIO 24; CALCIUM 8.8 MG/DL (8.5-10.1); CARBON DIOXIDE 25 MMOL/L (21-32); CHLORIDE 101 MMOL/L (98-107); CREATININE SERUM 0.86 MG/DL (0.60-1.30); GFR ESTIMATED > 60; GLUCOSE 198 MG/DL (70-105); MAGNESIUM 1.4 MG/DL (1.8-2.4); POTASSIUM 4.3 MMOL/L (3.6-5.0); SODIUM 136 MMOL/L (135-145); TOTAL PROTEIN 6.5 GM/DL (6.4-8.2)
[2018-12-21] MEDS: inSUlin ASPART (NovoLOG) 1 UNIT/0.01 ML (CHARGE PER UNIT) SC SCH ×4 (06:33→21:31)
[2018-12-21] MEDS: inSUlin Protamine/ASPart 70/30 1 UNIT/0.01 ML DOSE SC SCH ×2 (06:33→17:15)
[2018-12-21] MEDS: fentaNYL INJECTION 100 MCG/2 ML AMP IVP PRN ×4 (06:36→21:40)
[2018-12-21] MEDS: POLYETHYLENE GLYCOL 17 GM (MIRALAX) PACK PO SCH ×2 (09:04→21:32)
--- NOTE | 2018-12-21 09:05 | NUR ---
Refused Miralax this AM. Reports BM last night.
--- NOTE | 2018-12-21 11:35 | NUR ---
This RN contacted to evaluate replacement of wound vac dressing d/t wound vac alarming clogged and needing to be removed. Previous RN had used wet to dry dressings per Dr. Jose's request. New wound vac dressing applied at this time. Measurements of wound as follows 3.8cm wide, 4.2cm long and approx 0.2 deep. Circumference of wound draped with clear drape, one piece of white foam applied to bony area showing, and two pieces of black foam applied over white foam. Wound vac bridged to top of foot for comfort and improved placement to prevent leaks. Tubing anchored to leg with clear drape and kerlix bandage applied around dressing at patients request. This RN updated Roxann, primary nurse, of dressing change.
--- NOTE | 2018-12-21 12:52 | NUR ---
Magnesium is 1.4. Dr. Chappell to floor and informed. Orders to start Magnesium Oxide- 400 MG PO BID.
--- NOTE | 2018-12-21 12:58 | PM&R Progress Note ---
Subjective HPI/CC On Admission Date Seen by Provider: Dec 21, 2018 Time Seen by Provider: 11:20 CC: Left great toe amputation HPI: This is a 58-year-old white male clinic patient of [facility] with a past medical history of diabetes and 3 years ago a debilitating critical illness resulted in long course in inpatient rehab and even a feeding tube who presents to the inpatient rehab for amputation education and therapy after a left great toe amputation due to severe osteomyelitis and nonhealing wound. Patient has a wound VAC and pain is controlled. Hyperglycemia will be managed with increase insulin dose of his 70/30 insulin that he takes at home. Patient is malnourished and will be encouraged to take in adequate nutrition. He will be discharged home after recovery. Subjective/Events-last exam Wound VAC needs adjusting Pain is periodic Blood sugars improved but still labile Magnesium low so will initiate oral supplement No concerns Review of Systems Musculoskeletal: foot pain Objective Exam Vital Signs Vital Signs Date Time Temp Pulse Resp B/P (MAP) Pulse Ox O2 Delivery O2 Flow Rate FiO2 12/21/18 09:59 Room Air 12/21/18 05:38 97.6 64 18 131/77 (95) 99 Capillary Refill : General Appearance: No Apparent Distress, WD/WN, Chronically ill, Thin Respiratory: Chest Non Tender, Lungs Clear, Normal Breath Sounds, No Accessory Muscle Use, No Respiratory Distress Cardiovascular: Regular Rate, Rhythm, No Edema, No Gallop, No JVD, No Murmur, Normal Peripheral Pulses Neurologic/Psychiatric: Alert, Oriented x3, No Motor/Sensory Deficits, Normal Mood/Affect, Other (left great toe amputation without erythema but wound vac off ) Results/Procedures Lab Laboratory Tests 12/21/18 05:30 Patient resulted labs reviewed. Assessment/Plan Assessment and Plan Assess & Plan/Chief Complaint Assessment: s/p Septic shock due to cellulitis and osteomyelitis of the left great toe s/p amputation s/p Hyperosmolar nonketotic state requiring insulin drip s/p Acute renal failure Long-standing debility dating back to 2014 when reviewed inpatient rehab course History of bilateral pneumonia with respiratory failure requiring intubation at [facility] 3 years ago DM on insulin Malnourished Plan: Rehab for wound vac and amputation training Insulin dose increased DC Nebs and Advair Diagnosis/Problems Diagnosis/Problems (1) Amputation toe Status: Acute (2) Diabetes mellitus with insulin therapy Status: Chronic (3) HHNC (hyperglycemic hyperosmolar nonketotic coma) Status: Resolved Resolution Date/Time: 12/16/18 @ 06:41 (4) Malnourished Status: Acute Qualifiers: Malnutrition type: unspecified type Qualified Codes: E46 - Unspecified protein-calorie malnutrition (5) COPD (chronic obstructive pulmonary disease) Status: Chronic Qualifiers: COPD type: unspecified COPD Qualified Codes: J44.9 - Chronic obstructive pulmonary disease, unspecified Clinical Quality Measures DVT/VTE Risk/Contraindication: Risk Factor Score Per Nursin RFS Level Per Nursing on Admit: 4+=Very High ZACKERY PETERS DO Dec 21, 2018 12:58
[2018-12-21] MEDS: ENOXAPARIN 40 MG/0.4 ML (LOVENOX) SYR SC SCH (15:18)
[2018-12-21 16:47] VITALS: BP 121/71
[2018-12-21] MEDS: MAGNESIUM OXIDE (MAG-OX)400 MG TAB PO SCH (17:15)
[2018-12-21] MEDS ORDERED: MAGNESIUM OXIDE (MAG-OX)400 MG TAB PO SCH (18:00)
[2018-12-22] MEDS: HYDROcodone/APAP 5 MG/325 MG (LORTAB) TAB PO PRN ×3 (01:46→21:17)
[2018-12-22] MEDS: fentaNYL INJECTION 100 MCG/2 ML AMP IVP PRN ×2 (03:07→09:26)
[2018-12-22 05:03] VITALS: BP 133/80
[2018-12-22] MEDS: inSUlin ASPART (NovoLOG) 1 UNIT/0.01 ML (CHARGE PER UNIT) SC SCH ×4 (06:24→20:51)
[2018-12-22] MEDS: inSUlin Protamine/ASPart 70/30 1 UNIT/0.01 ML DOSE SC SCH ×2 (06:24→16:56)
[2018-12-22] MEDS: POLYETHYLENE GLYCOL 17 GM (MIRALAX) PACK PO SCH ×2 (07:51→20:50)
[2018-12-22] MEDS: MAGNESIUM OXIDE (MAG-OX)400 MG TAB PO SCH ×2 (07:51→16:57)
--- NOTE | 2018-12-22 08:53 | PM&R Progress Note ---
Subjective This was a face to face visit with the patient. Date Seen by Provider: Dec 22, 2018 Time Seen by Provider: 08:15 Subjective/Events-last exam Patient was seen in his room Patient doing very well Wound VAC in place Discontinue fentanyl IV in place on fentanyl patch Blood sugars improved Review of Systems Musculoskeletal: foot pain Objective Physician Exam Last Set of Vital Signs Vital Signs Date Time Temp Pulse Resp B/P (MAP) Pulse Ox O2 Delivery O2 Flow Rate FiO2 12/22/18 05:03 98.8 69 18 133/80 (97) 98 Room Air Capillary Refill : I&O Intake and Output 12/22/18 00:00 Intake Total 1540 ml Output Total 2150 ml Balance -610 ml Intake Oral 1540 ml Output Urine Total 2150 ml # Bowel Movements 1 General: Alert, Oriented X3, Cooperative, No Acute Distress, Other (thin) HEENT: Atraumatic, PERRLA Neck: Supple, No JVD, No Thyromegaly, +2 Carotid Pulse No Bruit, No LAD Lungs: Clear to Auscultation, Normal Air Movement Heart: Regular Rate, Normal S1, Normal S2 Abdomen: Normal Bowel Sounds, Soft, No Tenderness, No Hepatosplenomegaly, No Masses Extremities: No Clubbing, No Cyanosis, No Edema, Normal Pulses, No Tenderness/ Swelling Skin: No Rashes, No Breakdown, No Significant Lesion Neuro: Normal Speech, Strength at 5/5 X4 Ext, Normal Tone, Sensation Intact, Cranial Nerves 3-12 NL, Reflexes 2+, Other (limping gait left foot wound vac in place) Psych/Mental Status: Mental Status NL, Mood NL Results Lab Data Laboratory Tests 12/19/18 11:14: Glucometer 201H 12/19/18 15:59: Glucometer 209H 12/19/18 20:42: Glucometer 266H 12/20/18 06:24: Glucometer 164H 12/20/18 07:32: White Blood Count 7.3, Red Blood Count 4.08L, Hemoglobin 11.4L, Hematocrit 36L, Mean Corpuscular Volume 88, Mean Corpuscular Hemoglobin 28, Mean Corpuscular Hemoglobin Concent 32, Red Cell Distribution Width 13.8, Platelet Count 280, Mean Platelet Volume 10.1, Sodium Level 132L, Potassium Level 4.2, Chloride Level 101, Carbon Dioxide Level 23, Anion Gap 8, Blood Urea Nitrogen 20H, Creatinine 0.99, Estimat Glomerular Filtration Rate > 60, BUN/Creatinine Ratio 20, Glucose Level 282H, Calcium Level 8.8, Corrected Calcium 9.8, Total Bilirubin 0.1, Aspartate Amino Transf (AST/SGOT) 26, Alanine Aminotransferase ( ALT/SGPT) 11, Alkaline Phosphatase 96, Total Protein 6.7, Albumin 2.7L 12/20/18 11:09: Glucometer 253H 12/20/18 16:28: Glucometer 231H 12/20/18 20:32: Glucometer 198H 12/21/18 05:30: White Blood Count 7.9, Red Blood Count 4.02L, Hemoglobin 11.3L, Hematocrit 36L, Mean Corpuscular Volume 88, Mean Corpuscular Hemoglobin 28, Mean Corpuscular Hemoglobin Concent 32, Red Cell Distribution Width 14.2, Platelet Count 299, Mean Platelet Volume 9.7, Neutrophils (%) (Auto) 56, Lymphocytes (%) (Auto) 35, Monocytes (%) (Auto) 6, Eosinophils (%) (Auto) 2, Basophils (%) (Auto) 0, Neutrophils # (Auto) 4.4, Lymphocytes # (Auto) 2.8, Monocytes # (Auto) 0.5, Eosinophils # (Auto) 0.2, Basophils # (Auto) 0.0, Sodium Level 136, Potassium Level 4.3, Chloride Level 101, Carbon Dioxide Level 25, Anion Gap 10, Blood Urea Nitrogen 21H, Creatinine 0.86, Estimat Glomerular Filtration Rate > 60, BUN /Creatinine Ratio 24, Glucose Level 198H, Glucometer 186H, Calcium Level 8.8, Corrected Calcium 9.8, Magnesium Level 1.4L, Total Bilirubin 0.1, Aspartate Amino Transf (AST/SGOT) 23, Alanine Aminotransferase (ALT/SGPT) 12, Alkaline Phosphatase 87, Total Protein 6.5, Albumin 2.8L 12/21/18 11:33: Glucometer 173H 12/21/18 16:17: Glucometer 209H 12/21/18 20:30: Glucometer 58*L 12/21/18 20:48: Glucometer 61L 12/21/18 21:30: Glucometer 137H 12/22/18 04:27: Glucometer 228H 1/21/19 05:56: Glucometer 218H Current Funtional Status Continue wound VAC Maintain increase insulin Manage pain appropriately Maintain bowel regimen Continue participation in therapies Assessment/Plan Assessment and Plan (1) Amputation toe Status: Acute (2) Diabetes mellitus with insulin therapy Status: Chronic (3) HHNC (hyperglycemic hyperosmolar nonketotic coma) Status: Resolved (4) Malnourished Qualifiers: Qualified Codes: E46 - Unspecified protein-calorie malnutrition Status: Acute (5) COPD (chronic obstructive pulmonary disease) Qualifiers: Qualified Codes: J44.9 - Chronic obstructive pulmonary disease, unspecified Status: Chronic Co-Morbidities that are continuing to impact the rehab process: (include details ) ZACKERY PETERS DO Dec 22, 2018 08:53
--- NOTE | 2018-12-22 08:56 | Individualized Plan of Care ---
Individualized Plan of Care Rehab Nursing IPOC Order Admission Date Dec 19, 2018 at 10:05 Current Orders Orders Pt Evaluate/Treat Request (12/19/18 08:46) Request Ot Evaluate & Treat (12/19/18 08:46) Request For Cognitive Services (12/19/18 08:46) Admission Arrival Bed Request (12/19/18 09:55) Code/Resuscitation (12/19/18 10:36) Activity As Ordered (12/19/18 10:36) Sequential Compression Device (12/19/18 10:36) Acetaminophen Tablet (Tylenol Tablet) (12/19/18 10:45) Enoxaparin Injection (Lovenox Injection) (12/19/18 14:00) Fluticasone/Salmeterol Common (Advair 11 (12/19/18 20:00) Hydrocodone/Apap 5/325 Tablet (Lortab 5 (12/19/18 10:45) Insulin Aspart (Novolog) (Novolog (Charg (12/19/18 11:00) Ondansetron Injection (Zofran Injectio (12/19/18 10:45) Fentanyl Injection (Sublimaze Injection (12/19/18 10:45) Insulin Protamine/Aspart 70/30 (Novolog (12/19/18 17:00) Consult General Surgery (12/19/18 10:36) Admission-Acute Rehab Unit (12/19/18 10:36) Acetaminophen Tablet (Tylenol Tablet) (12/19/18 10:45) Ibuprofen Tablet (Motrin Tablet) (12/19/18 10:45) Calcium Carbonate Chew Tablet (Antacid C (12/19/18 10:45) Diphenhydramine Tablet (Benadryl Tablet) (12/19/18 10:45) Docusate Sodium Capsule (Colace Capsule) (12/19/18 10:45) Loperamide Capsule (Imodium Capsule) (12/19/18 10:45) Melatonin Tablet (Melatonin Tablet) (12/19/18 10:45) Accucheck Achs ACHS (12/19/18 10:36) Patient Visit (12/19/18 ) Pt Eval Moderate Complexity (12/19/18 ) Functional Activities, Ea 15 (12/19/18 ) Cho 90g/M 0snack (25-2900 Alex) (12/19/18 Lunch) Patient Visit (12/19/18 ) Speech Sound Lang Comp (12/19/18 ) Patient Visit (12/19/18 ) Ambulate 08,12,20 (12/19/18 15:36) Dvt/Vte Risk - Notifiy Physici 08 (12/19/18 15:36) Insulin Protamine/Aspart 70/30 (Novolog (12/20/18 07:00) Cbc No Diff (12/20/18 06:37) Comprehensive Metabolic Panel (12/20/18 06:37) Patient Visit (12/20/18 ) Exercise Therap, Ea 15 Min (12/20/18 ) Polyethylene Glycol Powder Pkt (Miralax (12/20/18 21:00) Cbc With Automated Diff (12/21/18 06:00) Comprehensive Metabolic Panel (12/21/18 06:00) Magnesium (12/21/18 05:00) Magnesium Oxide Tablet (Mag Ox Tablet) (12/21/18 18:00) Rehab Nursing Orders: Ongoing Assess. of Function Status, Disease Management & Educaiton, Fall Prevention, Fluid/Electrolyte/Nutrition Mgmt, Medication Management & Education, Management of Skin Intergrity, Wound Management Intensity of Therapy to be met Patient to be seen: Min.3h per day/5 of 7d PT IPOC Problem List: Activity Tolerance, Functional Strength, Safety, Balance, Gait, Transfer, Bed Mobility Treatment Plan: Continue Plan of Care Bed Mobility, Education, Functional Activity Araceli, Functional Strength, Group Therapy, Gait, Safety, Therapeutic Exercise, Transfers Treatment Duration: Jan 06, 2019 Frequency: At least 5 of 7 days/Wk (IRF) Estimated Hrs Per Day: 1.5 hours per day OT IPOC Problems: Decreased Activ Tolerance, Decreased UE Strength, Dependent Transfers , Impaired I ADL's, Impaired Self-Care Skills OT Treatment, Training and Edu: Yes OT Problems Pt s/p left great toe amputation. Pt now has wound vac in place and is NWB left foot. Pt demonstrates decreased mobility, strength, ADL functioning, and activity tolerance. Pt to benefit from skilled OT intervention for ADL training , transfers, strengthening, and home safety education to increase functional independence and allow safe discharge plan. Plan of Care: ADL Retraining, Functional Mobility, Group Exercise/Act as Ind, UE Funct Exercise/Act Treatment Duration: Jan 09, 2019 Frequency: At least 5 of 7 days/Wk (IRF) Estimated Hrs Per Day: 1.[address] IPOC Speech Therapy Treatment Plan: Discontinue ST, Goals Met Treatment Duration: Dec 19, 2018 Frequency: 1 time per week Estimated Hrs Per Day: .5 hour per day Dietitian/Body Technician Dietitian/Body Technician to monitor nutritional status and make changes and/or recommendations as needed and work with speech pathology on dietary upgrades as the occur. Physician IPOC Medical Issues being managed closely and that require the 24 hour availability of a physician: Hyperglycemia requiring close monitoring and wound vac management to evaluate for any signs of infection Medical Issues: Falls Precautions, Fluid/Electrolyte/Nutrition Balance, Wound Care Brief Synthesis of Preadmission Screen, Post-Admission Evaluation, and Therapy Evaluations: PT and OT aggressively working on regaining independence with left great toe amputation Medical Prognosis: Good Anticipated Length of Stay: 7 days ZACKERY PETERS DO Dec 22, 2018 08:56
[2018-12-22] MEDS: fentaNYL PATCH 25 MCG (DURAGESIC) TD SCH ×2 (09:28→11:41)
--- NOTE | 2018-12-22 09:28 | NUR ---
FENTANYL PATCH APPLIED TO RIGHT SHOULDER.
--- NOTE | 2018-12-22 09:28 | NUR ---
FENTANYL 50 MCG GIVEN FOR C/O OF LEFT FOOT PAIN.IV SITE LEAKING AND IV DC'D. DR. PETERS NOTIFIED. NEW ORDER'S NOTED.
[2018-12-22] MEDS: FENTANYL PATCH REMOVAL TP SCH (09:40)
--- NOTE | 2018-12-22 09:45 | NUR ---
C/O OF DIZZINESS AND FEELING " FUNNY". FENTANYL PATCH REMOVED. V/S=99.1 72 22 126/74
--- NOTE | 2018-12-22 10:00 | NUR ---
BLOOD SUGAR=76. CONT. TO C/O OF DIZZINESS AND " FEELING BAD." DURAGESIC PATCH WASTED WITH APRIL Chahal
--- NOTE | 2018-12-22 10:00 | Physical Therapy Daily Note ---
PT Daily Note-Current Subjective Patient in bed pre tx, agrees to PT, has unrated pain in left foot. Patient needs to be dressed and nurse gives him pain patch on back. Appearance Patient sitting EOB post tx with nurse call, phone, tray, all needs met. Mental Status Patient Orientation: Person, Place, Situation wound vac Transfers Therapy Code Descriptions/Definitions Functional [place] Measure: 0=Not Assessed/NA 4=Minimal Assistance 1=Total Assistance 5=Supervision or Setup 2=Maximal Assistance 6=Modified [place] 3=Moderate Assistance 7=Complete [place] Therapy Quality Codes: 6 Independent with activity with or without an assistive device 5 Patient requires set up or clean up by helper. Patient completes activity by themselves 4 Supervision or touching assist (CGA). [place] provide cues , steadying assist 3 The helper provides less than half the effort to complete the activity 2 The helper provides more than half the effort to complete the activity 1 Dependent. The helper does all the effort to complete an activity 7 Patient refused to complete or attempt activity 9 The patient did not perform the activity before the current illness or injury 88 Not attempted due to Medical conditions or safety concerns Transfers (B, C, W/C) (FIM): 5 Scootin Rollin Supine to/from Sit: 6 Sit to/from Stand: 5 Bed to/from Chair: 5 Weight Bearing Right Lower Extremity: Right Full Weight Bearing Left Lower Extremity: Left Non Weight Bearing Wound vac left great toe area Gait Training Gait (FIM): 1 Distance: 20' Gait Level of Assist: 4 Gait Persons Needed: 1 Gait Assistive Device: FWW Patient ambulates slowly, antalgic. Patient maintains his weight bearing status and has good clearance with right foot. Patient before during and after ambulation states that ever since he got his pain patch he feels "funny". Nurse notified and his BP is 126/74, O2 is 98%, and HR is 72bpm. Nurse takes the pain patch off. Wheelchair Training Does the Pt Use a Wheelchair?: Yes Wheelchair (FIM): 6 (6) Distance: 150'x2 Type of Wheelchair: Manual Exercises Seated Therapy Exercises: Ankle pumps, Hip flexion Seated Reps: 20 LAQ alternating for 5 min with 2# ankle weights on right leg. Treatments bed mobility and transfers, ambulation, functional strengthening, wheelchair mobility Assessment Current Status: Fair Progress improved transfers and ambulation. Patient dressed himself except he needed help to get the wound vac through the leg of his shorts. PT Short Term Goals Short Term Goals Time Frame: Dec 26, 2018 Transfers (B,C,W/C) (FIM): 5 Gait (FIM): 2 Distance (FIM): 1=781-82 ft Gait Assistive Device: FWW Stairs (FIM): 2 # of Steps: 1 PT Correction Goals Correction Goals PT Correction Goals Time Frame: Jan 06, 2019 Transfers (B,C,W/C) (FIM): 6 Sit to Lying (QC): 6 Lying-Sitting on Side/Bed(QC): 6 Sit to Stand (QC): 6 Roll Left to Right (QC): 6 Chair/Epv-yr-Kwkon Xfer(QC): 6 Car Transfer (QC): 6 Does the Patient Walk: Yes Gait (FIM): 6 Gait distance (FIM): 3=150 ft Walk 10 feet (QC): 6 Walk 10ft-Uneven Surface(QC): 6 Walk 50ft with 2 Turns (QC): 6 Walk 150 ft (QC): 6 Gait Assistive Device: FWW Does the Pt use WC or Scooter?: Yes Wheelchair (FIM): 6 Wheelchair distance (FIM): 3=150 ft Wheel 50 feet with 2 turns (QC: 6 Stairs (FIM): 5 # of Steps: 4 1 Step (curb) (QC): 6 4 Steps (QC): 6 12 Steps (QC): 88 Picking up an Object (QC): 88 PT Plan Problem List Problem List: Activity Tolerance, Functional Strength, Safety, Balance, Gait, Transfer, ROM Treatment/Plan Treatment Plan: Continue Plan of Care Treatment Plan: Bed Mobility, Education, Functional Activity Araceli, Functional Strength, Group Therapy, Gait, Safety, Therapeutic Exercise, Transfers Treatment Duration: Jan 06, 2019 Frequency: At least 5 of 7 days/Wk (IRF) Estimated Hrs Per Day: 1.5 hours per day Patient and/or Family Agrees t: Yes Safety Risks/Education Patient Education: Gait Training, Transfer Techniques, Reviewed Precautions, Correct Positioning, W/C Management, Safety Issues Teaching Recipient: Patient Teaching Methods: Demonstration, Discussion Response to Teaching: Reinforcement Needed Time/GCodes Time In: 0915 Time Out: 1000 Total Billed Treatment Time: 45 Total Billed Treatment 1 visit GT 10' WCH 15' EX 20' VIKY MITCHELL PT Dec 22, 2018 10:00
--- NOTE | 2018-12-22 10:40 | NUR ---
Pastoral Care Visit.
--- NOTE | 2018-12-22 11:41 | NUR ---
DURAGESIC PATCH 25 MCG RE-APPLIED PER PT. REQUEST. RATES PAIN 07/11. PT STATES " I THINK I WAS DIZZY AND FELT BAD BECAUSE MY BLOOD SUGAR WAS 76 AT 10:00, NOW MY BLOOD SUGAR IS 113." " I FEEL BETTER."
--- NOTE | 2018-12-22 12:17 | Occupational Ther Daily Note ---
OT Current Status-Daily Note Subjective Pt stated that , " I am doing good. " Has pain in my Left foot. Pain Numeric Pain Scale: 5-Moderate Pain Location: Left Location Body Site: Foot Pain Description: Ache, Sharp Mental Status/Objective Patient Orientation: Person, Place, Time Therapy Code Descriptions/Definitions Functional [place] Measure: 0=Not Assessed/NA 4=Minimal Assistance 1=Total Assistance 5=Supervision or Setup 2=Maximal Assistance 6=Modified [place] 3=Moderate Assistance 7=Complete [place] Attachments: Drains, Other-See Comments Toe Vac machine. ADL-Treatment P t seen in his room for ADL retraining, func bed mobility, func transfers training with NWB Staus on Lf foot.due to recent Amputation of left great toe & has Vac. machine., & strengthening ex to BUE. Pt performed bed side spongue bath with set up . Needs SBA in wipning back & Lf LE due to Lf great toe amputation . Pt don UB pullover shirt with supervision, wiped his face, front & back of neck, chest, head, & brush hairs with SBA . Therapy Code Descriptions/Definitions Functional [place] Measure: 0=Not Assessed/NA 4=Minimal Assistance 1=Total Assistance 5=Supervision or Setup 2=Maximal Assistance 6=Modified [place] 3=Moderate Assistance 7=Complete [place] Therapy Quality Codes: 6 Independent with activity with or without an assistive device 5 Patient requires set up or clean up by helper. Patient completes activity by themselves 4 Supervision or touching assist (CGA). [place] provide cues , steadying assist 3 The helper provides less than half the effort to complete the activity 2 The helper provides more than half the effort to complete the activity 1 Dependent. The helper does all the effort to complete an activity 7 Patient refused to complete or attempt activity 9 The patient did not perform the activity before the current illness or injury 88 Not attempted due to Medical conditions or safety concerns Eating (FIM): 7 Eating (QC): 6 Grooming (FIM): 5 Oral Hygiene (QC): 5 Bathing (FIM): 5 (Spongue bath) Bathing Location: L Arm, R Arm, L Upper Leg, R Upper Leg, R Lower Leg ( including foot), Chest, Abdomen, Buttocks, Perineal Area Shower/Bathe Self (QC): 5 Upper Body (FIM): 5 Upper Body Dressing (QC): 5 Lower Body Dressing (FIM): 4 Lower Body Dressing (QC): 4 Toileting (FIM): 5 Toileting Hygiene (QC): 5 Transfers (B, C, W/C) (FIM): 5 Toilet/Commode Transfer (FIM): 5 Toilet Transfer (QC): 5 Tub Transfer(FIM): 0 Education OT Patient Education: Correct positioning, Safety issues Teaching Recipient: Patient Teaching Methods: Demonstration, Discussion Response to Teaching: Verbalize Understanding, Return Demonstration OT Short Term Goals Short Term Goals Time Frame: Dec 26, 2018 Toileting(FIM): 5 Transfers (B,C,W/C) (FIM): 5 Toilet/Commode Transfer(FIM): 5 Additional Short Term Goals: 1-Demonstrate ADL Tasks, 2-Verbalize Understanding , 3-ImproveStrength/Araceli 1=Demonstrate adherence to instructed precautions during ADL tasks. 2=Patient will verbalize/demonstrate understanding of assistive devices/ modifications for ADL. 3=Patient will improve strength/tolerance for activity to enable patient to perform ADL's. OT Chcf Goals Ends Breakage Clerk Goals Time Frame: Jan 09, 2019 Eating (FIM): 6 Eating (QC): 6 Groomin Oral Hygiene (QC): 6 Bathing(FIM): 6 Shower/Bathe Self (QC): 6 Upper Body Dressing(FIM): 6 Upper Body Dressing (QC): 6 Lower Body Dressing(FIM): 6 Lower Body Dressing (QC): 6 On/Off Footwear (QC): 6 Toileting(FIM): 6 Toileting Hygiene (QC): 6 Toilet/Commode Transfer(FIM): 6 Toilet/Commode Transfer (QC): 6 Additional Goals: 1-Demonstrate ADL Tasks, 2-Verbalize Understanding, 3- ImproveStrength/Araceli 1=Demonstrate adherence to instructed precautions during ADL tasks. 2=Patient will verbalize/demonstrate understanding of assistive devices/ modifications for ADL. 3=Patient will improve strength/tolerance for activity to enable patient to perform ADL's. OT Education/Plan Problem List/Assessment Assessment: Decreased Activ Tolerance, Decreased Safety Aware, Decreased UE Strength, Impaired Bed Mobility, Impaired Funct Balance, Impaired Self-Care Skills Pt s/p left great toe amputation. Pt now has wound vac in place and is NWB left foot. Pt demonstrates decreased mobility, strength, ADL functioning, and activity tolerance. Pt to benefit from skilled OT intervention for ADL training , transfers, strengthening, and home safety education to increase functional independence and allow safe discharge plan. Discharge Recommendations Plan/Recommendations: Continue POC Therapy D/C Recommendations: Home w/ Family Support Equpiment Recommendations-D/C: Extended Shower Sprayer, Pairing Machine Operator Barriers to Progress Left Great toe Amputation. Patient/Family Goals To return home Independently with family with safety awareness. Treatment Plan/Plan of Care Treatment,Training & Education: Yes Patient would benefit from OT for education, treatment and training to promote independence in ADL's, mobility, safety and/or upper extremity function for ADL' s. Plan of Care: ADL Retraining, Functional Mobility, Group Exercise/Act as Ind, UE Funct Exercise/Act Treatment Duration: Jan 09, 2019 Frequency: At least 5 of 7 days/Wk (IRF) Estimated Hrs Per Day: 1.5 hours per day Agreement: Yes Rehab Potential: Good Time/GCodes Start Time: 11:00 Stop Time: 12:00 Total Time Billed (hr/min): 60 Billed Treatment Time 1, ADLs x 30 min , Ex x 30 min. Total 60 minAGUSTINA Figueroa OT Dec 22, 2018 12:17
[2018-12-22] MEDS: ENOXAPARIN 40 MG/0.4 ML (LOVENOX) SYR SC SCH (14:20)
--- NOTE | 2018-12-22 15:21 | Therapy Group Daily Note ---
Therapy Daily Group Note Patient Education Topic Home Safety, Other List Below (TRF techniques /demonstration..car, bed chair and tub) Exercises LE Seated Exercise, UE Exercise Other/Notes Pt participated in group therapy with 4 to 1 ratio. Goals of session: Understanding of safe transfers (car, bed, chair, tub/shower) .(met) Remember one seated exercise UE or LE to lead group.(met) Complete UE/ LE seated exercises.(met) Pt was transported via w/c to [facility] for OT/PT group. Group consisted of introductions (name, place, favorite place to visit : out doors fishing), socialization, seated UE/LE exercises, education on safe transfers and 5 memory words (toni, VW, 1, dog, cinnamon candy). Pt introduced self appropriately and actively listened to peers. Pt able to complete UE/LE seated exercise with modified one arm technique. Pt lead elbow flexion exercise, 10x' s. Pt acknowledged understanding of transfers by nodding head in acknowledgement. After group, pt lying in bed with call light/phone in reach. All needs met in room. Start Time: 13:00 Stop Time: 14:15 Total Billed Treatment Time: 75 Total Billed Treatment 1,GRP JAIME LANTIGUA AIR CONDITIONING SHEET METAL INSTALLER Dec 22, 2018 15:21
[2018-12-22 17:30] VITALS: BP 130/79
[2018-12-23] MEDS: HYDROcodone/APAP 5 MG/325 MG (LORTAB) TAB PO PRN ×4 (01:18→21:06)
[2018-12-23 05:49] VITALS: BP 118/69
[2018-12-23] MEDS: inSUlin ASPART (NovoLOG) 1 UNIT/0.01 ML (CHARGE PER UNIT) SC SCH ×4 (06:48→21:02)
[2018-12-23] MEDS: inSUlin Protamine/ASPart 70/30 1 UNIT/0.01 ML DOSE SC SCH ×2 (06:48→17:01)
[2018-12-23] MEDS: MAGNESIUM OXIDE (MAG-OX)400 MG TAB PO SCH ×2 (07:56→17:01)
[2018-12-23] MEDS: POLYETHYLENE GLYCOL 17 GM (MIRALAX) PACK PO SCH ×2 (07:57→21:02)
--- NOTE | 2018-12-23 08:45 | PM&R Progress Note ---
Subjective HPI/CC On Admission Date Seen by Provider: Dec 23, 2018 Time Seen by Provider: 08:25 CC: Left great toe amputation HPI: This is a 58-year-old white male clinic patient of [facility] with a past medical history of diabetes and 3 years ago a debilitating critical illness resulted in long course in inpatient rehab and even a feeding tube who presents to the inpatient rehab for amputation education and therapy after a left great toe amputation due to severe osteomyelitis and nonhealing wound. Patient has a wound VAC and pain is controlled. Hyperglycemia will be managed with increase insulin dose of his 70/30 insulin that he takes at home. Patient is malnourished and will be encouraged to take in adequate nutrition. He will be discharged home after recovery. Subjective/Events-last exam Patient doing better Less pain in his left great toe amputated site Bowels are moving No shortness of breath or wheezing Has no significant problems Working with therapy to increase independence with ADLs Review of Systems Musculoskeletal: foot pain Objective Exam Vital Signs Vital Signs Date Time Temp Pulse Resp B/P (MAP) Pulse Ox O2 Delivery O2 Flow Rate FiO2 12/23/18 05:49 97.1 61 20 118/69 (85) 91 Room Air Capillary Refill : General Appearance: No Apparent Distress, WD/WN, Chronically ill, Thin Respiratory: Chest Non Tender, Lungs Clear, Normal Breath Sounds, No Accessory Muscle Use, No Respiratory Distress Cardiovascular: Regular Rate, Rhythm, No Edema, No Gallop, No JVD, No Murmur, Normal Peripheral Pulses Extremity: Other (Left great toe wound VAC in place) Neurologic/Psychiatric: Alert, Oriented x3, No Motor/Sensory Deficits, Normal Mood/Affect Results/Procedures Lab Patient resulted labs reviewed. Assessment/Plan Assessment and Plan Assess & Plan/Chief Complaint Assessment: s/p Septic shock due to cellulitis and osteomyelitis of the left great toe s/p amputation s/p Hyperosmolar nonketotic state requiring insulin drip s/p Acute renal failure Long-standing debility dating back to 2014 when reviewed inpatient rehab course History of bilateral pneumonia with respiratory failure requiring intubation at [facility] 3 years ago DM on insulin Malnourished Plan: Rehab for wound vac and amputation training Insulin dose increased with improved sugars Lovenox for DVT prophylaxis Diagnosis/Problems Diagnosis/Problems (1) Amputation toe Status: Acute (2) Diabetes mellitus with insulin therapy Status: Chronic (3) HHNC (hyperglycemic hyperosmolar nonketotic coma) Status: Resolved Resolution Date/Time: 12/16/18 @ 06:41 (4) Malnourished Status: Acute Qualifiers: Malnutrition type: unspecified type Qualified Codes: E46 - Unspecified protein-calorie malnutrition (5) COPD (chronic obstructive pulmonary disease) Status: Chronic Qualifiers: COPD type: unspecified COPD Qualified Codes: J44.9 - Chronic obstructive pulmonary disease, unspecified Clinical Quality Measures DVT/VTE Risk/Contraindication: Risk Factor Score Per Nursin RFS Level Per Nursing on Admit: 4+=Very High ZACKERY PETERS DO Dec 23, 2018 08:44
--- NOTE | 2018-12-23 09:52 | Physical Therapy Daily Note ---
PT Daily Note-Current Subjective Patient coming from bathroom with nurse pre tx, agrees to PT, has pain of 5.5/ 10 in left foot. During treatment patient states he feels "woozy" like his blood sugar is a little low. Nurse aide checks it and it was 107. Appearance Patient sitting EOB post tx with nurse call, phone, tray, all needs met. Wound vac plugged in. Mental Status Patient Orientation: Person, Place, Situation wound vac Transfers Therapy Code Descriptions/Definitions Functional [place] Measure: 0=Not Assessed/NA 4=Minimal Assistance 1=Total Assistance 5=Supervision or Setup 2=Maximal Assistance 6=Modified [place] 3=Moderate Assistance 7=Complete [place] Therapy Quality Codes: 6 Independent with activity with or without an assistive device 5 Patient requires set up or clean up by helper. Patient completes activity by themselves 4 Supervision or touching assist (CGA). [place] provide cues , steadying assist 3 The helper provides less than half the effort to complete the activity 2 The helper provides more than half the effort to complete the activity 1 Dependent. The helper does all the effort to complete an activity 7 Patient refused to complete or attempt activity 9 The patient did not perform the activity before the current illness or injury 88 Not attempted due to Medical conditions or safety concerns Transfers (B, C, W/C) (FIM): 5 Sit to/from Stand: 5 Bed to/from Chair: 5 Weight Bearing Right Lower Extremity: Right Full Weight Bearing Left Lower Extremity: Left Non Weight Bearing Wound vac left great toe area Gait Training Gait (FIM): 5 Distance: 150', 20' Gait Level of Assist: 5 Gait Persons Needed: 1 Gait Assistive Device: FWW Patient ambulated much further this morning but needed several standing rest breaks due to arm fatigue. Patient was able to maintain his weight bearing status, hopping on his right leg. Ambulation was steady, no LOB. Wheelchair Training Does the Pt Use a Wheelchair?: Yes Wheelchair (FIM): 6 Distance: 150' Type of Wheelchair: Manual Exercises NuStep Minutes: 15 NuStep Workload: 5 Treatments transfers, ambulation, functional strengthening, wheelchair mobility Assessment Current Status: Fair Progress Improved ambulation but patient needed extra time to perform activities and extra rest breaks due to patient describes as feeling "woozy". PT Short Term Goals Short Term Goals Time Frame: Dec 26, 2018 Transfers (B,C,W/C) (FIM): 5 Gait (FIM): 2 Distance (FIM): 7=312-10 ft Gait Assistive Device: FWW Wheelchair Distance: 150'x2 Stairs (FIM): 2 # of Steps: 1 PT Fpc Goals Fpc Goals PT Fpc Goals Time Frame: Jan 06, 2019 Transfers (B,C,W/C) (FIM): 6 Sit to Lying (QC): 6 Lying-Sitting on Side/Bed(QC): 6 Sit to Stand (QC): 6 Rollin Roll Left to Right (QC): 6 Chair/Knx-tn-Lqpcw Xfer(QC): 6 Car Transfer (QC): 6 Does the Patient Walk: Yes Gait (FIM): 6 Gait distance (FIM): 3=150 ft Walk 10 feet (QC): 6 Walk 10ft-Uneven Surface(QC): 6 Walk 50ft with 2 Turns (QC): 6 Walk 150 ft (QC): 6 Gait Assistive Device: FWW Does the Pt use WC or Scooter?: Yes Wheelchair (FIM): 6 Wheelchair distance (FIM): 3=150 ft Wheel 50 feet with 2 turns (QC: 6 Stairs (FIM): 5 # of Steps: 4 1 Step (curb) (QC): 6 4 Steps (QC): 6 12 Steps (QC): 88 Picking up an Object (QC): 88 PT Plan Problem List Problem List: Activity Tolerance, Functional Strength, Safety, Balance, Gait, Transfer, Bed Mobility, ROM Treatment/Plan Treatment Plan: Continue Plan of Care Treatment Plan: Bed Mobility, Education, Functional Activity Araceli, Functional Strength, Group Therapy, Gait, Safety, Therapeutic Exercise, Transfers Treatment Duration: Jan 06, 2019 Frequency: At least 5 of 7 days/Wk (IRF) Estimated Hrs Per Day: 1.5 hours per day Patient and/or Family Agrees t: Yes Safety Risks/Education Patient Education: Gait Training, Transfer Techniques, Reviewed Precautions, Correct Positioning, W/C Management, Safety Issues Teaching Recipient: Patient Teaching Methods: Demonstration, Discussion Response to Teaching: Reinforcement Needed Time/GCodes Time In: 0900 Time Out: 1000 Total Billed Treatment Time: 60 Total Billed Treatment 1 visit [facility] 10' EX 15' GT 20' FA 15' VIKY MITCHELL PT Dec 23, 2018 09:52
--- NOTE | 2018-12-23 11:48 | Occupational Ther Daily Note ---
OT Current Status-Daily Note Subjective Pt Stated , Oh I am fine today, Little tired. Pt's daughter was with him in the room. Pain Numeric Pain Scale: 5-Moderate Pain Location: Left Location Body Site: Ankle Pain Description: Ache, Sharp Mental Status/Objective Patient Orientation: Person, Place, Time Therapy Code Descriptions/Definitions Functional [place] Measure: 0=Not Assessed/NA 4=Minimal Assistance 1=Total Assistance 5=Supervision or Setup 2=Maximal Assistance 6=Modified [place] 3=Moderate Assistance 7=Complete [place] Attachments: Drains ADL-Treatment Patient participated in Bathing/ shower activity today. Therapist unhooked the Vac to remove pt's underwear from the tube & & later hooked it back. Pt undress LB clothings with SBA & UB clothing Independently. Therapist wrapped the Left foot wound & dressing with waterproof paper , Pt hopped with Standard Walker to bath Room . Patient need SBA in Shower in washing back & perineal area & buttock , Pt Independent mostly in shampooing & washing face , hairs , chest , abdomen, both legs & to dry body Independently. Pt needs frequent rest periods as pt get tired soon .. Pt did'nt had clothing & thus pt wear Hospital gown today till he gets his cloth from Laundry.. Participated in strengthening Ex to BUE . 25 reps x 2 sets with 3 lbs wts, 30 reps with Hand gripper with each hand to strengthen hand marketing research coordinator. & 25 reps with red theraband in all panes of motion with BUE. Therapy Code Descriptions/Definitions Functional [place] Measure: 0=Not Assessed/NA 4=Minimal Assistance 1=Total Assistance 5=Supervision or Setup 2=Maximal Assistance 6=Modified [place] 3=Moderate Assistance 7=Complete [place] Therapy Quality Codes: 6 Independent with activity with or without an assistive device 5 Patient requires set up or clean up by helper. Patient completes activity by themselves 4 Supervision or touching assist (CGA). [place] provide cues , steadying assist 3 The helper provides less than half the effort to complete the activity 2 The helper provides more than half the effort to complete the activity 1 Dependent. The helper does all the effort to complete an activity 7 Patient refused to complete or attempt activity 9 The patient did not perform the activity before the current illness or injury 88 Not attempted due to Medical conditions or safety concerns Eating (FIM): 7 Eating (QC): 6 Grooming (FIM): 5 Oral Hygiene (QC): 5 Bathing (FIM): 4 Bathing Location: L Arm, R Arm, L Upper Leg, R Upper Leg, L Lower Leg ( including foot), R Lower Leg (including foot), Chest, Abdomen, Buttocks, Perineal Area Shower/Bathe Self (QC): 4 Upper Body (FIM): 6 Upper Body Dressing (QC): 6 Lower Body Dressing (FIM): 4 Lower Body Dressing (QC): 4 Toileting (FIM): 6 Toileting Hygiene (QC): 6 Transfers (B, C, W/C) (FIM): 6 Toilet/Commode Transfer (FIM): 6 Toilet Transfer (QC): 6 Shower Transfer(FIM): 6 Education OT Patient Education: Correct positioning, Safety issues Teaching Recipient: Patient Teaching Methods: Demonstration, Discussion Response to Teaching: Verbalize Understanding, Return Demonstration OT Short Term Goals Short Term Goals Time Frame: Dec 26, 2018 Toileting(FIM): 5 Transfers (B,C,W/C) (FIM): 5 Toilet/Commode Transfer(FIM): 5 Additional Short Term Goals: 1-Demonstrate ADL Tasks, 2-Verbalize Understanding , 3-ImproveStrength/Araceli 1=Demonstrate adherence to instructed precautions during ADL tasks. 2=Patient will verbalize/demonstrate understanding of assistive devices/ modifications for ADL. 3=Patient will improve strength/tolerance for activity to enable patient to perform ADL's. OT Halfway Goals Halfway Goals Time Frame: Jan 09, 2019 Eating (FIM): 6 Eating (QC): 6 Groomin Oral Hygiene (QC): 6 Bathing(FIM): 6 Shower/Bathe Self (QC): 6 Upper Body Dressing(FIM): 6 Upper Body Dressing (QC): 6 Lower Body Dressing(FIM): 6 Lower Body Dressing (QC): 6 On/Off Footwear (QC): 6 Toileting(FIM): 6 Toileting Hygiene (QC): 6 Toilet/Commode Transfer(FIM): 6 Toilet/Commode Transfer (QC): 6 Additional Goals: 1-Demonstrate ADL Tasks, 2-Verbalize Understanding, 3- ImproveStrength/Araceli 1=Demonstrate adherence to instructed precautions during ADL tasks. 2=Patient will verbalize/demonstrate understanding of assistive devices/ modifications for ADL. 3=Patient will improve strength/tolerance for activity to enable patient to perform ADL's. OT Education/Plan Problem List/Assessment Assessment: Decreased Activ Tolerance, Decreased Safety Aware, Decreased UE Strength, Impaired Bed Mobility, Impaired Funct Balance, Impaired Self-Care Skills Pt s/p left great toe amputation. Pt now has wound vac in place and is NWB left foot. Pt demonstrates decreased mobility, strength, ADL functioning, and activity tolerance. Pt to benefit from skilled OT intervention for ADL training , transfers, strengthening, and home safety education to increase functional independence and allow safe discharge plan. Discharge Recommendations Plan/Recommendations: Continue POC Therapy D/C Recommendations: Home w/ Family Support Equpiment Recommendations-D/C: Bath Chair, Extended Shower Sprayer, Asbestos Coverer Patient/Family Goals To return Home Independently with safety awareness. Treatment Plan/Plan of Care Treatment,Training & Education: Yes Patient would benefit from OT for education, treatment and training to promote independence in ADL's, mobility, safety and/or upper extremity function for ADL' s. Plan of Care: ADL Retraining, Functional Mobility, Group Exercise/Act as Ind, UE Funct Exercise/Act Treatment Duration: Jan 09, 2019 Frequency: At least 5 of 7 days/Wk (IRF) Estimated Hrs Per Day: 1.5 hours per day Agreement: Yes Rehab Potential: Good Time/GCodes Start Time: 10:00 Stop Time: 11:30 Total Time Billed (hr/min): 90 Billed Treatment Time 1, ADLs x 60 min, Ex x 30 min . Total min 90 minutes. AGUSTINA AKERS OT Dec 23, 2018 11:47
--- NOTE | 2018-12-23 14:27 | Physical Therapy Daily Note ---
PT Daily Note-Current Subjective Patient in wheelchair at bedside pre tx, agrees to PT, has no complaints of pain at rest. Patient has some clothes he would like to put on. He can get the shirt on but will need assist with the lower extremity dressing. Appearance Patient in bed post tx with nurse call, phone, tray, all needs met. Mental Status Patient Orientation: Person, Place, Situation, Normal For Age wound vac Transfers Therapy Code Descriptions/Definitions Functional Cotton Measure: 0=Not Assessed/NA 4=Minimal Assistance 1=Total Assistance 5=Supervision or Setup 2=Maximal Assistance 6=Modified [place] 3=Moderate Assistance 7=Complete Cotton Therapy Quality Codes: 6 Independent with activity with or without an assistive device 5 Patient requires set up or clean up by helper. Patient completes activity by themselves 4 Supervision or touching assist (CGA). [place] provide cues , steadying assist 3 The helper provides less than half the effort to complete the activity 2 The helper provides more than half the effort to complete the activity 1 Dependent. The helper does all the effort to complete an activity 7 Patient refused to complete or attempt activity 9 The patient did not perform the activity before the current illness or injury 88 Not attempted due to Medical conditions or safety concerns Transfers (B, C, W/C) (FIM): 6 Scootin Rollin Supine to/from Sit: 6 Sit to/from Stand: 6 Bed to/from Chair: 6 Weight Bearing Right Lower Extremity: Right Full Weight Bearing Left Lower Extremity: Left Non Weight Bearing Wound vac left great toe area Exercises Supine Ex: Ankle pumps, Quad Set, Glut sets, Heel Slides, Straight leg raise, Hip abd/add Supine Reps: 20 Treatments bed mobility and transfers, dressing upper and lower , functional strengthening Assessment Current Status: Fair Progress much improved mobility, vp digital marketing social media and crm notified about improvements PT Short Term Goals Short Term Goals Time Frame: Dec 26, 2018 Transfers (B,C,W/C) (FIM): 5 Gait (FIM): 2 Distance (FIM): 5=250-14 ft Gait Assistive Device: FWW Wheelchair Distance: 150' Stairs (FIM): 2 # of Steps: 1 PT Baggage Handling Supervisor Goals Mcc Goals PT Mcc Goals Time Frame: Jan 06, 2019 Transfers (B,C,W/C) (FIM): 6 Sit to Lying (QC): 6 Lying-Sitting on Side/Bed(QC): 6 Sit to Stand (QC): 6 Rollin Roll Left to Right (QC): 6 Chair/Foq-gs-Geleq Xfer(QC): 6 Car Transfer (QC): 6 Does the Patient Walk: Yes Gait (FIM): 6 Gait distance (FIM): 3=150 ft Walk 10 feet (QC): 6 Walk 10ft-Uneven Surface(QC): 6 Walk 50ft with 2 Turns (QC): 6 Walk 150 ft (QC): 6 Gait Assistive Device: FWW Does the Pt use WC or Scooter?: Yes Wheelchair (FIM): 6 Wheelchair distance (FIM): 3=150 ft Wheel 50 feet with 2 turns (QC: 6 Stairs (FIM): 5 # of Steps: 4 1 Step (curb) (QC): 6 4 Steps (QC): 6 12 Steps (QC): 88 Picking up an Object (QC): 88 PT Plan Problem List Problem List: Activity Tolerance, Functional Strength, Safety, Balance, Gait, Transfer, Bed Mobility, ROM Treatment/Plan Treatment Plan: Continue Plan of Care Treatment Plan: Bed Mobility, Education, Functional Activity Araceli, Functional Strength, Group Therapy, Gait, Safety, Therapeutic Exercise, Transfers Treatment Duration: Jan 06, 2019 Frequency: At least 5 of 7 days/Wk (IRF) Estimated Hrs Per Day: 1.5 hours per day Patient and/or Family Agrees t: Yes Safety Risks/Education Patient Education: Transfer Techniques, Correct Positioning, Safety Issues Teaching Recipient: Patient Teaching Methods: Demonstration, Discussion Response to Teaching: Reinforcement Needed Time/GCodes Time In: 1400 Time Out: 1430 Total Billed Treatment Time: 30 Total Billed Treatment 1 visit EX 20' FA 10' VIKY MITCHELL PT Dec 23, 2018 14:27
[2018-12-23] MEDS: ENOXAPARIN 40 MG/0.4 ML (LOVENOX) SYR SC SCH (15:04)
[2018-12-23 16:47] VITALS: BP 124/74
[2018-12-24] MEDS: inSUlin ASPART (NovoLOG) 1 UNIT/0.01 ML (CHARGE PER UNIT) SC SCH ×4 (05:46→21:17)
[2018-12-24 06:07] VITALS: BP 135/80
[2018-12-24] MEDS: inSUlin Protamine/ASPart 70/30 1 UNIT/0.01 ML DOSE SC SCH ×2 (07:52→17:57)
[2018-12-24] MEDS: HYDROcodone/APAP 5 MG/325 MG (LORTAB) TAB PO PRN ×3 (08:01→20:01)
--- NOTE | 2018-12-24 09:04 | PM&R Progress Note ---
Subjective This was a face to face visit with the patient. Date Seen by Provider: Dec 24, 2018 Time Seen by Provider: 08:30 Subjective/Events-last exam Patient was seen in his room Patient reports he has no problems but does state that his pain is periodic at times Fentanyl patch seems to be helping Lamisil will be given for bilateral tinea cruris Wound VAC will be changed today Likely will require wound VAC at home Review of Systems Musculoskeletal: foot pain Objective Physician Exam Last Set of Vital Signs Vital Signs Date Time Temp Pulse Resp B/P (MAP) Pulse Ox O2 Delivery O2 Flow Rate FiO2 12/24/18 06:07 97.3 60 18 135/80 (98) 99 Room Air Capillary Refill : I&O Intake and Output 12/24/18 00:00 Intake Total 2050 ml Output Total 2000 ml Balance 50 ml Intake Oral 2050 ml Output Urine Total 2000 ml General: Alert, Oriented X3, Cooperative, No Acute Distress, Other (thin) HEENT: Atraumatic, PERRLA Neck: Supple, No JVD, No Thyromegaly, +2 Carotid Pulse No Bruit, No LAD Lungs: Clear to Auscultation, Normal Air Movement Heart: Regular Rate, Normal S1, Normal S2 Abdomen: Normal Bowel Sounds, Soft, No Tenderness, No Hepatosplenomegaly, No Masses Extremities: No Clubbing, No Cyanosis, No Edema, Normal Pulses, No Tenderness/ Swelling Skin: No Rashes, No Breakdown, No Significant Lesion Neuro: Normal Speech, Strength at 5/5 X4 Ext, Normal Tone, Sensation Intact, Cranial Nerves 3-12 NL, Reflexes 2+, Other (limping gait left foot wound vac in place) Psych/Mental Status: Mental Status NL, Mood NL Results Lab Data Laboratory Tests 12/21/18 11:33: Glucometer 173H 12/21/18 16:17: Glucometer 209H 12/21/18 20:30: Glucometer 58*L 12/21/18 20:48: Glucometer 61L 12/21/18 21:30: Glucometer 137H 12/22/18 04:27: Glucometer 228H 12/22/18 05:56: Glucometer 218H 12/22/18 10:00: Glucometer 76 12/22/18 10:58: Glucometer 113H 12/22/18 16:12: Glucometer 224H 12/22/18 20:21: Glucometer 193H 12/23/18 05:16: Glucometer 196H 12/23/18 09:24: Glucometer 104 12/23/18 11:00: Glucometer 78 12/23/18 16:45: Glucometer 292H 12/23/18 20:53: Glucometer 98 12/23/18 23:00: Glucometer 136H 12/24/18 05:20: Glucometer 134H Current Funtional Status Continue wound VAC Consult Dr. Garvey for debridement Maintain close monitoring of sugars and blood pressure Disposition soon Lamisil for tinea cruris Assessment/Plan Assessment and Plan Assessment: s/p Septic shock due to cellulitis and osteomyelitis of the left great toe s/p amputation s/p Hyperosmolar nonketotic state requiring insulin drip s/p Acute renal failure Long-standing debility dating back to 2014 when reviewed inpatient rehab course History of bilateral pneumonia with respiratory failure requiring intubation at [facility] 3 years ago DM on insulin Malnourished Plan: Rehab for wound vac and amputation training Insulin dose increased with improved sugars Lovenox for DVT prophylaxis (1) Amputation toe Status: Acute (2) Diabetes mellitus with insulin therapy Status: Chronic (3) HHNC (hyperglycemic hyperosmolar nonketotic coma) Status: Resolved (4) Malnourished Qualifiers: Qualified Codes: E46 - Unspecified protein-calorie malnutrition Status: Acute (5) COPD (chronic obstructive pulmonary disease) Qualifiers: Qualified Codes: J44.9 - Chronic obstructive pulmonary disease, unspecified Status: Chronic Co-Morbidities that are continuing to impact the rehab process: (include details ) ZACKERY PETERS DO Dec 24, 2018 09:04
[2018-12-24] MEDS: MAGNESIUM OXIDE (MAG-OX)400 MG TAB PO SCH ×2 (09:39→17:57)
--- NOTE | 2018-12-24 09:51 | Physical Therapy Daily Note ---
PT Daily Note-Current Subjective Pt. sitting up EOB. States he wants to finish his breakfast. Pt. disgruntled when this ICING AND GLAZE MAKER applied gait belt but soon after during gait pt. c/o dizziness required min to mod assist secondary to LOB during gait and stated he felt his BS was dropping . Nursing checked FSBS at 123. No further c/o dizziness. Pt. states he wants to go "yesterday" but states he is essentially homeless and has not one to help him and really no where to go if he left. Pain Location: No Pain Reported Mental Status Patient Orientation: Normal For Age Attachments: Other-See Comments (wounfd vacc) pt. is negative and disgruntled in general. This ICING AND GLAZE MAKER explained the whys of each part of PT with pt. eventually acting as if he understood some of the Rx plans and safety precautions Transfers Therapy Code Descriptions/Definitions Functional [place] Measure: 0=Not Assessed/NA 4=Minimal Assistance 1=Total Assistance 5=Supervision or Setup 2=Maximal Assistance 6=Modified [place] 3=Moderate Assistance 7=Complete [place] Therapy Quality Codes: 6 Independent with activity with or without an assistive device 5 Patient requires set up or clean up by helper. Patient completes activity by themselves 4 Supervision or touching assist (CGA). [place] provide cues , steadying assist 3 The helper provides less than half the effort to complete the activity 2 The helper provides more than half the effort to complete the activity 1 Dependent. The helper does all the effort to complete an activity 7 Patient refused to complete or attempt activity 9 The patient did not perform the activity before the current illness or injury 88 Not attempted due to Medical conditions or safety concerns Transfers (B, C, W/C) (FIM): 5 Scootin Rollin Supine to/from Sit: 6 Sit to/from Stand: 6 Bed to/from Chair: 5 Weight Bearing Right Lower Extremity: Right Full Weight Bearing Left Lower Extremity: Left Non Weight Bearing Wound vac left great toe area Gait Training Does the Patient Walk?: Yes Gait (FIM): 3 Distance (FIM): 3=150 ft (150, 50x2) Gait Level of Assist: 3 Gait Persons Needed: 1 Gait Assistive Device: FWW LOB episode required assist to recover as pt. c/o some dizziness Wheelchair Training Does the Pt Use a Wheelchair?: Yes Wheelchair (FIM): 5 Wheelchair Distance: 3=150 ft (200x2) Wheelchair Level of Assist: 5 Type of Wheelchair: Manual explained to pt. that if he were to DC , is NWB on left LE and has to manage the [place] it would be profittable to make sure he is efficient with a w/c for mobility. Pt. agrees and did very well in small spaces, ZTR as well as backing and aligning and braking chair etc. Exercises Supine Ex: Ankle pumps, Rolling, Straight leg raise, Hip abd/add Supine Reps: 10 Seated Therapy Exercises: Sit to stand (arm chair push ups x 12), Long arc quads, Hip flexion Seated Reps: 12 NuStep Minutes: 10 NuStep Workload: 4 Assessment Current Status: Good Progress LOB during gait, good w/c skills PT Short Term Goals Short Term Goals Time Frame: Dec 26, 2018 Transfers (B,C,W/C) (FIM): 5 Gait (FIM): 2 Distance (FIM): 2=447-92 ft Gait Assistive Device: FWW Wheelchair Distance: 150' Stairs (FIM): 2 # of Steps: 1 PT Assisted Goals Assisted Goals PT Medical Library Assistant Goals Time Frame: Jan 06, 2019 Transfers (B,C,W/C) (FIM): 6 Sit to Lying (QC): 6 Lying-Sitting on Side/Bed(QC): 6 Sit to Stand (QC): 6 Rollin Roll Left to Right (QC): 6 Chair/Pxj-ce-Xtzzn Xfer(QC): 6 Car Transfer (QC): 6 Does the Patient Walk: Yes Gait (FIM): 6 Gait distance (FIM): 3=150 ft Walk 10 feet (QC): 6 Walk 10ft-Uneven Surface(QC): 6 Walk 50ft with 2 Turns (QC): 6 Walk 150 ft (QC): 6 Gait Assistive Device: FWW Does the Pt use WC or Scooter?: Yes Wheelchair (FIM): 6 Wheelchair distance (FIM): 3=150 ft Wheel 50 feet with 2 turns (QC: 6 Stairs (FIM): 5 # of Steps: 4 1 Step (curb) (QC): 6 4 Steps (QC): 6 12 Steps (QC): 88 Picking up an Object (QC): 88 PT Plan Treatment/Plan Treatment Plan: Continue Plan of Care Treatment Plan: Bed Mobility, Education, Functional Activity Araceli, Functional Strength, Group Therapy, Gait, Safety, Therapeutic Exercise, Transfers Treatment Duration: Jan 06, 2019 Frequency: At least 5 of 7 days/Wk (IRF) Estimated Hrs Per Day: 1.5 hours per day Patient and/or Family Agrees t: Yes Safety Risks/Education Patient Education: Gait Training, Transfer Techniques, Correct Positioning, W/ C Management, Disease Process, Safety Issues Teaching Recipient: Patient Teaching Methods: Demonstration, Discussion Response to Teaching: Verbalize Understanding, Return Demonstration, Reinforcement Needed Time/GCodes Time In: 900 Time Out: 1000 Total Billed Treatment Time: 60 Total Billed Treatment 1,w/c 15m,GT25m,EX20m G Codes Necessary: No JAIME LANTIGUA ICING AND GLAZE MAKER Dec 24, 2018 09:51
[2018-12-24] MEDS: POLYETHYLENE GLYCOL 17 GM (MIRALAX) PACK PO SCH ×2 (09:56→20:01)
[2018-12-24] MEDS: FENTANYL PATCH REMOVAL TP SCH (09:58)
--- NOTE | 2018-12-24 09:59 | NUR ---
Duragesic patch in place to Lt shoulder.
--- NOTE | 2018-12-24 13:39 | Occupational Ther Daily Note ---
OT Current Status-Daily Note Subjective Pt stated, Let me finished my breakfast. I am fine. Pt has difficulty swallowing food. Pain Numeric Pain Scale: 5-Moderate Pain Location: Left Location Body Site: Foot Pain Description: Ache, Sharp Mental Status/Objective Patient Orientation: Person, Place, Time Therapy Code Descriptions/Definitions Functional [place] Measure: 0=Not Assessed/NA 4=Minimal Assistance 1=Total Assistance 5=Supervision or Setup 2=Maximal Assistance 6=Modified [place] 3=Moderate Assistance 7=Complete [place] Attachments: Drains ADL-Treatment Pt participated in sponge -bath in w/c . Pt needs min A in wiping back of the pt. Pt wiped front, Both arms, both legs ,chest, face & neck. 25 reps x 2 sets x 3 lbs weight , 25 reps with red theraband in all planes of motion. SBA in func transfers from bed to w/c . Noticed difficuilty while self feeding while swallowing food . Therapy Code Descriptions/Definitions Functional [place] Measure: 0=Not Assessed/NA 4=Minimal Assistance 1=Total Assistance 5=Supervision or Setup 2=Maximal Assistance 6=Modified [place] 3=Moderate Assistance 7=Complete [place] Therapy Quality Codes: 6 Independent with activity with or without an assistive device 5 Patient requires set up or clean up by helper. Patient completes activity by themselves 4 Supervision or touching assist (CGA). [place] provide cues , steadying assist 3 The helper provides less than half the effort to complete the activity 2 The helper provides more than half the effort to complete the activity 1 Dependent. The helper does all the effort to complete an activity 7 Patient refused to complete or attempt activity 9 The patient did not perform the activity before the current illness or injury 88 Not attempted due to Medical conditions or safety concerns Eating (FIM): 6 Eating (QC): 6 Grooming (FIM): 5 Oral Hygiene (QC): 6 Upper Body (FIM): 5 Upper Body Dressing (QC): 5 Lower Body Dressing (FIM): 4 Lower Body Dressing (QC): 4 Toileting (FIM): 4 Toileting Hygiene (QC): 5 Transfers (B, C, W/C) (FIM): 6 Toilet/Commode Transfer (FIM): 6 Toilet Transfer (QC): 6 Tub Transfer(FIM): 0 Education OT Patient Education: Correct positioning, Instructions to caregiver, Modified ADL techniques, Safety issues OT Short Term Goals Short Term Goals Time Frame: Dec 26, 2018 Toileting(FIM): 5 Transfers (B,C,W/C) (FIM): 5 Toilet/Commode Transfer(FIM): 5 Additional Short Term Goals: 1-Demonstrate ADL Tasks, 2-Verbalize Understanding , 3-ImproveStrength/Araceli 1=Demonstrate adherence to instructed precautions during ADL tasks. 2=Patient will verbalize/demonstrate understanding of assistive devices/ modifications for ADL. 3=Patient will improve strength/tolerance for activity to enable patient to perform ADL's. OT Jail Goals Skein Yarn Dyer Helper Goals Time Frame: Jan 09, 2019 Eating (FIM): 6 Eating (QC): 6 Groomin Oral Hygiene (QC): 6 Bathing(FIM): 6 Shower/Bathe Self (QC): 6 Upper Body Dressing(FIM): 6 Upper Body Dressing (QC): 6 Lower Body Dressing(FIM): 6 Lower Body Dressing (QC): 6 On/Off Footwear (QC): 6 Toileting(FIM): 6 Toileting Hygiene (QC): 6 Toilet/Commode Transfer(FIM): 6 Toilet/Commode Transfer (QC): 6 Additional Goals: 1-Demonstrate ADL Tasks, 2-Verbalize Understanding, 3- ImproveStrength/Araceli 1=Demonstrate adherence to instructed precautions during ADL tasks. 2=Patient will verbalize/demonstrate understanding of assistive devices/ modifications for ADL. 3=Patient will improve strength/tolerance for activity to enable patient to perform ADL's. OT Education/Plan Problem List/Assessment Assessment: Decreased Activ Tolerance, Decreased Safety Aware, Decreased UE Strength, Impaired Bed Mobility, Impaired Funct Balance, Impaired Self-Care Skills Pt s/p left great toe amputation. Pt now has wound vac in place and is NWB left foot. Pt demonstrates decreased mobility, strength, ADL functioning, and activity tolerance. Pt to benefit from skilled OT intervention for ADL training , transfers, strengthening, and home safety education to increase functional independence and allow safe discharge plan. Discharge Recommendations Plan/Recommendations: Continue POC Equpiment Recommendations-D/C: Extended Shower Sprayer, Carbide Operator Treatment Plan/Plan of Care Patient would benefit from OT for education, treatment and training to promote independence in ADL's, mobility, safety and/or upper extremity function for ADL' s. Plan of Care: ADL Retraining, Functional Mobility, Group Exercise/Act as Ind, UE Funct Exercise/Act Treatment Duration: Jan 09, 2019 Frequency: At least 5 of 7 days/Wk (IRF) Estimated Hrs Per Day: 1.5 hours per day Agreement: Yes Rehab Potential: Good Time/GCodes Start Time: 08:00 Stop Time: 09:00 Total Time Billed (hr/min): 60 Billed Treatment Time 1, ADLs x30 min & EX 30 min. Total 60 Minutes. AGUSTINA AKERS OT Dec 24, 2018 13:39
[2018-12-24] MEDS: ENOXAPARIN 40 MG/0.4 ML (LOVENOX) SYR SC SCH (14:50)
--- NOTE | 2018-12-24 15:09 | Therapy Group Daily Note ---
Therapy Daily Group Note Patient Education Topic Other List Below Exercises LE Seated Exercise, UE Exercise Other/Notes Pt participated in group therapy with 4 to 1 ratio. Goals of Session: Understanding of modifications to daily items and environment for ease of use (met). Demonstrate ability to complete UE/LE seated exercises (met). Pt propelled w/c to [facility] for OT/PT group. Group consists of introductions (name, place living, [id number]), socialization, UE/LE seated exercises and education on modifications for items used daily. Pt able to introduce self appropriately and actively listened to peers. Pt required assist due to TANGIRNAQ difficulties. Pt able to roll dice with L UE for question to answer. Pt did acknowledge by nodding head and verbalizing understanding by giving own modification. Pt completed UE/LE seated exercises without difficulty. Pt benefited from group by being able to modify items at home for one handed techniques. 5 words were picked out by pt's to remember next session (2, asteroids, carhop, spring, hopscotch). After group, pt lying in bed with call light/phone in reach. All needs met in room. Start Time: 13:00 Stop Time: 14:20 Total Billed Treatment Time: 80 Total Billed Treatment 1-GRP JENNA ALLEN Dec 24, 2018 15:09
--- NOTE | 2018-12-24 16:18 | NUR ---
Dr. Garvey here, debriding Lt great toe amputation area, pt has signed consent. Tolerated procedure well.
[2018-12-24 18:43] VITALS: BP 125/66
[2018-12-24] MEDS: TERBINAFINE 1% CREAM 1 OZ (LamISIL) TUBE TP SCH (20:02)
--- NOTE | 2018-12-24 20:27 | Progress Note ---
Subjective Date Seen by a Provider: Dec 24, 2018 Time Seen by a Provider: 16:30 Subjective/Events-last exam patient status post left great toe amputation with wound VAC placement. Patient has had good progress with healing. The patient has a very small area of where the wound VAC has embedded in some slight slough within the wound. Patient states that his pain is controlled. Has no new complaints. Denies any nausea vomiting fever sweats chills shortness of breath or chest pain. Objective Exam Vital Signs Date Time Temp Pulse Resp B/P (MAP) Pulse Ox O2 Delivery O2 Flow Rate FiO2 12/24/18 18:43 96.0 63 18 125/66 (85) 99 Room Air 12/24/18 08:32 Room Air 12/24/18 06:07 97.3 60 18 135/80 (98) 99 Room Air 12/23/18 20:41 Room Air I & O 12/24/18 07:00 Intake Total 1720 ml Output Total 1500 ml Balance 220 ml Capillary Refill : General Appearance: No Apparent Distress, WD/WN, Chronically ill HEENT: PERRL/EOMI, Normal ENT Inspection, Pharynx Normal Neck: Full Range of Motion, Normal Inspection, Non Tender, Supple Respiratory: Chest Non Tender, No Accessory Muscle Use, No Respiratory Distress Cardiovascular: Regular Rate, Rhythm Gastrointestinal: non tender, soft Extremity: Other (Left great toe wound with small amount of slough and also small particulates of wound VAC foam adherent in this area.) Neurologic/Psychiatric: Alert, Oriented x3, No Motor/Sensory Deficits, Normal Mood/Affect Skin: Normal Color, Warm/Dry Lymphatic: No Adenopathy Results Lab Laboratory Tests 12/23/18 20:53: Glucometer 98 12/23/18 23:00: Glucometer 136H 12/24/18 05:20: Glucometer 134H 12/24/18 09:17: Glucometer 123H 12/24/18 11:15: Glucometer 76 12/24/18 16:23: Glucometer 90 Assessment/Plan Assessment/Plan Assessment/Plan status post left great toe amputation with wound VAC placement. Patient was some slough and small amount of foam adherent to these areas. Patient was discussed risk and benefits of having sharp debridement of wound performed at bedside and he wishes to proceed. Wound VAC to be placed on after debridement and continue management. Patient prepped in sterile fashion and 10 blade scalpel was used to sharply debrided the slough and adherent black foam from wound. This was taken down to nice healthy tissue removing approximately 1 x 1.2 cm total area. Patient tolerated procedure well without any complications. Wound care nurse to continue with wound VAC changes. Clinical Quality Measures DVT/VTE Risk/Contraindication: Risk Factor Score Per Nursin RFS Level Per Nursing on Admit: 4+=Very High HUGO ARROYO DO Dec 24, 2018 20:27
[2018-12-25] MEDS: HYDROcodone/APAP 5 MG/325 MG (LORTAB) TAB PO PRN ×3 (05:39→20:50)
[2018-12-25] MEDS: inSUlin ASPART (NovoLOG) 1 UNIT/0.01 ML (CHARGE PER UNIT) SC SCH ×4 (05:39→20:53)
[2018-12-25 05:56] VITALS: BP 118/67
[2018-12-25] MEDS: inSUlin Protamine/ASPart 70/30 1 UNIT/0.01 ML DOSE SC SCH ×2 (06:56→17:21)
--- NOTE | 2018-12-25 08:51 | PM&R Progress Note ---
Subjective HPI/CC On Admission Date Seen by Provider: Dec 25, 2018 Time Seen by Provider: 08:00 CC: Left great toe amputation HPI: This is a 58-year-old white male clinic patient of [facility] with a past medical history of diabetes and 3 years ago a debilitating critical illness resulted in long course in inpatient rehab and even a feeding tube who presents to the inpatient rehab for amputation education and therapy after a left great toe amputation due to severe osteomyelitis and nonhealing wound. Patient has a wound VAC and pain is controlled. Hyperglycemia will be managed with increase insulin dose of his 70/30 insulin that he takes at home. Patient is malnourished and will be encouraged to take in adequate nutrition. He will be discharged home after recovery. Subjective/Events-last exam Patient doing well Lamisil cream helping the rash in his groin area Debrided toe yesterday by Dr. Garvey and now is doing very well with wound VAC Discharge planning Review of Systems General: Fatigue Musculoskeletal: foot pain Objective Exam Vital Signs Vital Signs Date Time Temp Pulse Resp B/P (MAP) Pulse Ox O2 Delivery O2 Flow Rate FiO2 12/25/18 21:00 Room Air 12/25/18 17:30 97.4 64 20 126/72 (90) 98 Capillary Refill : General Appearance: No Apparent Distress, WD/WN, Chronically ill, Thin Respiratory: Chest Non Tender, Lungs Clear, Normal Breath Sounds, No Accessory Muscle Use, No Respiratory Distress Cardiovascular: Regular Rate, Rhythm, No Edema, No Gallop, No JVD, No Murmur, Normal Peripheral Pulses Neurologic/Psychiatric: Alert, Oriented x3, No Motor/Sensory Deficits, Normal Mood/Affect Results/Procedures Lab Patient resulted labs reviewed. Assessment/Plan Assessment and Plan Assess & Plan/Chief Complaint Assessment: s/p Septic shock due to cellulitis and osteomyelitis of the left great toe s/p amputation s/p Hyperosmolar nonketotic state requiring insulin drip s/p Acute renal failure Long-standing debility dating back to 2014 when reviewed inpatient rehab course History of bilateral pneumonia with respiratory failure requiring intubation at [facility] 3 years ago DM on insulin Malnourished Plan: Rehab for wound vac and amputation training Insulin dose increased with improved sugars Lovenox for DVT prophylaxis Diagnosis/Problems Diagnosis/Problems (1) Amputation toe Status: Acute (2) Diabetes mellitus with insulin therapy Status: Chronic (3) HHNC (hyperglycemic hyperosmolar nonketotic coma) Status: Resolved Resolution Date/Time: 12/16/18 @ 06:41 (4) Malnourished Status: Acute Qualifiers: Malnutrition type: unspecified type Qualified Codes: E46 - Unspecified protein-calorie malnutrition (5) COPD (chronic obstructive pulmonary disease) Status: Chronic Qualifiers: COPD type: unspecified COPD Qualified Codes: J44.9 - Chronic obstructive pulmonary disease, unspecified Clinical Quality Measures DVT/VTE Risk/Contraindication: Risk Factor Score Per Nursin RFS Level Per Nursing on Admit: 4+=Very High ZACKERY PETERS DO Dec 25, 2018 08:51
[2018-12-25] MEDS: MAGNESIUM OXIDE (MAG-OX)400 MG TAB PO SCH ×2 (08:55→17:21)
[2018-12-25] MEDS: POLYETHYLENE GLYCOL 17 GM (MIRALAX) PACK PO SCH ×2 (09:26→20:53)
[2018-12-25] MEDS: TERBINAFINE 1% CREAM 1 OZ (LamISIL) TUBE TP SCH ×2 (09:26→20:51)
[2018-12-25] MEDS: FENTANYL PATCH REMOVAL TP SCH (09:50)
[2018-12-25] MEDS: fentaNYL PATCH 25 MCG (DURAGESIC) TD SCH (09:50)
--- NOTE | 2018-12-25 09:59 | Physical Therapy Daily Note ---
PT Daily Note-Current Subjective Patient in bed pre tx, agrees to PT, has pain of 5-6/10 in left foot. Appearance Patient sitting EOB post tx with nurse call, phone, tray, all needs met. Mental Status Patient Orientation: Person, Place, Situation, Normal For Age wound vac Transfers Therapy Code Descriptions/Definitions Functional [place] Measure: 0=Not Assessed/NA 4=Minimal Assistance 1=Total Assistance 5=Supervision or Setup 2=Maximal Assistance 6=Modified [place] 3=Moderate Assistance 7=Complete [place] Therapy Quality Codes: 6 Independent with activity with or without an assistive device 5 Patient requires set up or clean up by helper. Patient completes activity by themselves 4 Supervision or touching assist (CGA). [place] provide cues , steadying assist 3 The helper provides less than half the effort to complete the activity 2 The helper provides more than half the effort to complete the activity 1 Dependent. The helper does all the effort to complete an activity 7 Patient refused to complete or attempt activity 9 The patient did not perform the activity before the current illness or injury 88 Not attempted due to Medical conditions or safety concerns Transfers (B, C, W/C) (FIM): 6 Scootin Rollin Supine to/from Sit: 6 Sit to/from Stand: 6 Bed to/from Chair: 6 Weight Bearing Right Lower Extremity: Right Full Weight Bearing Left Lower Extremity: Left Non Weight Bearing Wound vac left great toe area Gait Training Gait (FIM): 5 Distance: 150'x2 Gait Level of Assist: 5 Gait Persons Needed: 1 Gait Assistive Device: FWW Patient ambulates very slowly, is compliant with his weight bearing status, takes several standing rest breaks Exercises Standing: Hamstring curls (LLE), Heel/toe raises (RLE), 3 way Ex=Flex, Abd, Ext (LLE), Marching (LLE), Retro gait NuStep Minutes: 15 NuStep Workload: 5 (left leg not used.) Treatments bed mobility and transfers, ambulation, functional strengthening Assessment Current Status: Fair Progress improved general mobility, patient had once instance of unsteadiness during ambulation but was able to correct himself PT Short Term Goals Short Term Goals Time Frame: Dec 26, 2018 Transfers (B,C,W/C) (FIM): 5 Gait (FIM): 2 Distance (FIM): 9=257-86 ft Gait Assistive Device: FWW Wheelchair Distance: 150' Stairs (FIM): 2 # of Steps: 1 PT Nursing Home Goals Nursing Home Goals PT Attending Anesthesiologist Goals Time Frame: Jan 06, 2019 Transfers (B,C,W/C) (FIM): 6 Sit to Lying (QC): 6 Lying-Sitting on Side/Bed(QC): 6 Sit to Stand (QC): 6 Rollin Roll Left to Right (QC): 6 Chair/Igz-qm-Bjvpg Xfer(QC): 6 Car Transfer (QC): 6 Does the Patient Walk: Yes Gait (FIM): 6 Gait distance (FIM): 3=150 ft Walk 10 feet (QC): 6 Walk 10ft-Uneven Surface(QC): 6 Walk 50ft with 2 Turns (QC): 6 Walk 150 ft (QC): 6 Gait Assistive Device: FWW Does the Pt use WC or Scooter?: Yes Wheelchair (FIM): 6 Wheelchair distance (FIM): 3=150 ft Wheel 50 feet with 2 turns (QC: 6 Stairs (FIM): 5 # of Steps: 4 1 Step (curb) (QC): 6 4 Steps (QC): 6 12 Steps (QC): 88 Picking up an Object (QC): 88 PT Plan Problem List Problem List: Activity Tolerance, Functional Strength, Safety, Balance, Gait, Transfer, ROM Treatment/Plan Treatment Plan: Continue Plan of Care Treatment Plan: Bed Mobility, Education, Functional Activity Araceli, Functional Strength, Group Therapy, Gait, Safety, Therapeutic Exercise, Transfers Treatment Duration: Jan 06, 2019 Frequency: At least 5 of 7 days/Wk (IRF) Estimated Hrs Per Day: 1.5 hours per day Patient and/or Family Agrees t: Yes Safety Risks/Education Patient Education: Gait Training, Transfer Techniques, Correct Positioning, Safety Issues Teaching Recipient: Patient Teaching Methods: Demonstration, Discussion Response to Teaching: Reinforcement Needed Time/GCodes Time In: 0900 Time Out: 1000 Total Billed Treatment Time: 60 Total Billed Treatment 1 visit GT 30' EX 30' VIKY MITCHELL PT Dec 25, 2018 09:59
--- NOTE | 2018-12-25 11:53 | Occupational Ther Daily Note ---
OT Current Status-Daily Note Subjective Pt stated, " Oh I am fine. Ready for shower. " Pain Numeric Pain Scale: 0-No Pain Mental Status/Objective Patient Orientation: Person, Place, Time Therapy Code Descriptions/Definitions Functional [place] Measure: 0=Not Assessed/NA 4=Minimal Assistance 1=Total Assistance 5=Supervision or Setup 2=Maximal Assistance 6=Modified [place] 3=Moderate Assistance 7=Complete [place] Attachments: Drains, IV Has wound-Vac for septic Left Amputee toe . ADL-Treatment Patient seen today for bathing/shower retraining, & other basic ADLs , transfers & ambulation with FWW & Strengthening ex to BUE. Pt needs SBA in shower . Min A in LB dressing , pt put on nancy pants with suspenders on.& mod I in UB dressing, SBA in bed mobility sit to stand with FWW , brush his hairs , kenney with set up . Pt walk with hopping in FWW to avoid weight on Left LE.. 30 reps x 2 sets x 2 lb wts & 30 reps with red theraband in all planes of motion. Therapy Code Descriptions/Definitions Functional [place] Measure: 0=Not Assessed/NA 4=Minimal Assistance 1=Total Assistance 5=Supervision or Setup 2=Maximal Assistance 6=Modified [place] 3=Moderate Assistance 7=Complete [place] Therapy Quality Codes: 6 Independent with activity with or without an assistive device 5 Patient requires set up or clean up by helper. Patient completes activity by themselves 4 Supervision or touching assist (CGA). [place] provide cues , steadying assist 3 The helper provides less than half the effort to complete the activity 2 The helper provides more than half the effort to complete the activity 1 Dependent. The helper does all the effort to complete an activity 7 Patient refused to complete or attempt activity 9 The patient did not perform the activity before the current illness or injury 88 Not attempted due to Medical conditions or safety concerns Eating (FIM): 7 Eating (QC): 6 Grooming (FIM): 5 Oral Hygiene (QC): 5 Bathing (FIM): 4 Bathing Location: L Arm, R Arm, L Upper Leg, R Upper Leg, L Lower Leg ( including foot), R Lower Leg (including foot), Chest, Abdomen, Buttocks, Perineal Area Shower/Bathe Self (QC): 4 Upper Body (FIM): 5 Upper Body Dressing (QC): 5 Lower Body Dressing (FIM): 4 Lower Body Dressing (QC): 4 On/Off Footwear (QC): 4 Toileting (FIM): 5 Toileting Hygiene (QC): 5 Transfers (B, C, W/C) (FIM): 6 Toilet/Commode Transfer (FIM): 6 Toilet Transfer (QC): 6 Tub Transfer(FIM): 0 Shower Transfer(FIM): 6 Education OT Patient Education: Correct positioning, Modified ADL techniques, Reviewed precautions, Safety issues Teaching Recipient: Patient Teaching Methods: Demonstration, Discussion Response to Teaching: Verbalize Understanding, Return Demonstration OT Short Term Goals Short Term Goals Time Frame: Dec 26, 2018 Toileting(FIM): 5 Transfers (B,C,W/C) (FIM): 5 Toilet/Commode Transfer(FIM): 5 Additional Short Term Goals: 1-Demonstrate ADL Tasks, 2-Verbalize Understanding , 3-ImproveStrength/Araceli 1=Demonstrate adherence to instructed precautions during ADL tasks. 2=Patient will verbalize/demonstrate understanding of assistive devices/ modifications for ADL. 3=Patient will improve strength/tolerance for activity to enable patient to perform ADL's. OT Awning Finisher Goals Longterm Goals Time Frame: Jan 09, 2019 Eating (FIM): 6 Eating (QC): 6 Groomin Oral Hygiene (QC): 6 Bathing(FIM): 6 Shower/Bathe Self (QC): 6 Upper Body Dressing(FIM): 6 Upper Body Dressing (QC): 6 Lower Body Dressing(FIM): 6 Lower Body Dressing (QC): 6 On/Off Footwear (QC): 6 Toileting(FIM): 6 Toileting Hygiene (QC): 6 Toilet/Commode Transfer(FIM): 6 Toilet/Commode Transfer (QC): 6 Additional Goals: 1-Demonstrate ADL Tasks, 2-Verbalize Understanding, 3- ImproveStrength/Araceli 1=Demonstrate adherence to instructed precautions during ADL tasks. 2=Patient will verbalize/demonstrate understanding of assistive devices/ modifications for ADL. 3=Patient will improve strength/tolerance for activity to enable patient to perform ADL's. OT Education/Plan Problem List/Assessment Assessment: Decreased Activ Tolerance, Decreased Safety Aware, Decreased UE Strength, Impaired Bed Mobility, Impaired Funct Balance, Impaired Self-Care Skills Pt s/p left great toe amputation. Pt now has wound vac in place and is NWB left foot. Pt demonstrates decreased mobility, strength, ADL functioning, and activity tolerance. Pt to benefit from skilled OT intervention for ADL training , transfers, strengthening, and home safety education to increase functional independence and allow safe discharge plan. Discharge Recommendations Plan/Recommendations: Continue POC Therapy D/C Recommendations: Home Independently, Occupational Therapy Home Care Equpiment Recommendations-D/C: Bath Chair, Extended Shower Sprayer, Efficiency Manager Patient/Family Goals To return home alone & Independently. Treatment Plan/Plan of Care Treatment,Training & Education: Yes Patient would benefit from OT for education, treatment and training to promote independence in ADL's, mobility, safety and/or upper extremity function for ADL' s. Plan of Care: ADL Retraining, Functional Mobility, Group Exercise/Act as Ind, UE Funct Exercise/Act Treatment Duration: Jan 09, 2019 Frequency: At least 5 of 7 days/Wk (IRF) Estimated Hrs Per Day: 1.5 hours per day Agreement: Yes Rehab Potential: Good Time/GCodes Start Time: 10:00 Stop Time: 11:30 Total Time Billed (hr/min): 90 Billed Treatment Time 1, ADL 75 min & Ex 15 min . Total 90 min. AGUSTINA AKERS OT Dec 25, 2018 11:53
--- NOTE | 2018-12-25 12:41 | NUR ---
Weekly team conference Discussed weekly team conference with patient. Tentative discharge date set for 01/02/19. Patient is agreeable to plan and states he plans on discharging to his friend's house. Patient inquires about medication assistance, specifically with insulin. Informed patient I would contact one of the hospital social workers for assistance. Patient verbalized understanding.
[2018-12-25] MEDS: ENOXAPARIN 40 MG/0.4 ML (LOVENOX) SYR SC SCH (14:24)
--- NOTE | 2018-12-25 14:28 | Physical Therapy Daily Note ---
PT Daily Note-Current Subjective Agreeable to PT. no complaints. Pain Numeric Pain Scale: 0-No Pain Location: No Pain Reported Mental Status Patient Orientation: Person, Place, Time, Situation Transfers Therapy Code Descriptions/Definitions Functional [place] Measure: 0=Not Assessed/NA 4=Minimal Assistance 1=Total Assistance 5=Supervision or Setup 2=Maximal Assistance 6=Modified [place] 3=Moderate Assistance 7=Complete [place] Therapy Quality Codes: 6 Independent with activity with or without an assistive device 5 Patient requires set up or clean up by helper. Patient completes activity by themselves 4 Supervision or touching assist (CGA). [place] provide cues , steadying assist 3 The helper provides less than half the effort to complete the activity 2 The helper provides more than half the effort to complete the activity 1 Dependent. The helper does all the effort to complete an activity 7 Patient refused to complete or attempt activity 9 The patient did not perform the activity before the current illness or injury 88 Not attempted due to Medical conditions or safety concerns Sit to/from Stand: 5 (correct hand placement and sequencing. ) Weight Bearing Right Lower Extremity: Right Full Weight Bearing Left Lower Extremity: Left Non Weight Bearing Wound vac left great toe area Gait Training Does the Patient Walk?: Yes Gait (FIM): 4 (CGA for safety) Distance (FIM): 3=150 ft Distance: 150 ft x 2 Gait Assistive Device: FWW NWB left LE. 2-3 standing rest breaks each direction. Exercises Seated Therapy Exercises: Ankle pumps, Long arc quads, Hamstring Curls, Hip abd /add, Glut set Seated Reps: 15 (LE strength to promote increased safety with transfers and gait. ) Assessment Current Status: Good Progress GAit is steady without noted LOB; strength is progressing. PT Short Term Goals Short Term Goals Time Frame: Dec 26, 2018 Transfers (B,C,W/C) (FIM): 5 Gait (FIM): 2 Distance (FIM): 5=720-08 ft Gait Assistive Device: FWW Wheelchair Distance: 150' Stairs (FIM): 2 # of Steps: 1 PT Longterm Goals Longterm Goals PT Longterm Goals Time Frame: Jan 06, 2019 Transfers (B,C,W/C) (FIM): 6 Sit to Lying (QC): 6 Lying-Sitting on Side/Bed(QC): 6 Sit to Stand (QC): 6 Rollin Roll Left to Right (QC): 6 Chair/Xau-pl-Dcrpr Xfer(QC): 6 Car Transfer (QC): 6 Does the Patient Walk: Yes Gait (FIM): 6 Gait distance (FIM): 3=150 ft Walk 10 feet (QC): 6 Walk 10ft-Uneven Surface(QC): 6 Walk 50ft with 2 Turns (QC): 6 Walk 150 ft (QC): 6 Gait Assistive Device: FWW Does the Pt use WC or Scooter?: Yes Wheelchair (FIM): 6 Wheelchair distance (FIM): 3=150 ft Wheel 50 feet with 2 turns (QC: 6 Stairs (FIM): 5 # of Steps: 4 1 Step (curb) (QC): 6 4 Steps (QC): 6 12 Steps (QC): 88 Picking up an Object (QC): 88 PT Plan Problem List Problem List: Activity Tolerance, Functional Strength, Safety, Balance, Gait, Transfer Treatment/Plan Treatment Plan: Continue Plan of Care Treatment Plan: Bed Mobility, Education, Functional Activity Araceli, Functional Strength, Group Therapy, Gait, Safety, Therapeutic Exercise, Transfers Treatment Duration: Jan 06, 2019 Frequency: At least 5 of 7 days/Wk (IRF) Estimated Hrs Per Day: 1.5 hours per day Patient and/or Family Agrees t: Yes Safety Risks/Education Patient Education: Transfer Techniques, Safety Issues Teaching Recipient: Patient Teaching Methods: Demonstration, Discussion Response to Teaching: Reinforcement Needed Time/GCodes Time In: 1330 Time Out: 1400 Total Billed Treatment Time: 30 Total Billed Treatment visit GT 15 EX 15 JENNA HOGUE PT Dec 25, 2018 14:28
[2018-12-25 17:30] VITALS: BP 126/72
[2018-12-26 06:00] VITALS: BP 128/68
[2018-12-26] MEDS: HYDROcodone/APAP 5 MG/325 MG (LORTAB) TAB PO PRN ×3 (06:14→21:02)
[2018-12-26] MEDS: inSUlin ASPART (NovoLOG) 1 UNIT/0.01 ML (CHARGE PER UNIT) SC SCH (06:34)
[2018-12-26] MEDS: inSUlin Protamine/ASPart 70/30 1 UNIT/0.01 ML DOSE SC SCH ×2 (06:34→17:01)
--- NOTE | 2018-12-26 08:56 | Physical Therapy Daily Note ---
PT Daily Note-Current Subjective Patient in bed pre tx, agrees to PT, has no complaints of pain. Appearance Patient in bed post tx with nurse call, phone, tray, all needs met. Mental Status Patient Orientation: Person, Place, Situation, Normal For Age wound vac Transfers Therapy Code Descriptions/Definitions Functional [place] Measure: 0=Not Assessed/NA 4=Minimal Assistance 1=Total Assistance 5=Supervision or Setup 2=Maximal Assistance 6=Modified [place] 3=Moderate Assistance 7=Complete [place] Therapy Quality Codes: 6 Independent with activity with or without an assistive device 5 Patient requires set up or clean up by helper. Patient completes activity by themselves 4 Supervision or touching assist (CGA). [place] provide cues , steadying assist 3 The helper provides less than half the effort to complete the activity 2 The helper provides more than half the effort to complete the activity 1 Dependent. The helper does all the effort to complete an activity 7 Patient refused to complete or attempt activity 9 The patient did not perform the activity before the current illness or injury 88 Not attempted due to Medical conditions or safety concerns Transfers (B, C, W/C) (FIM): 6 Scootin Rollin Supine to/from Sit: 6 Sit to/from Stand: 6 Bed to/from Chair: 6 Weight Bearing Right Lower Extremity: Right Full Weight Bearing Left Lower Extremity: Left Non Weight Bearing Wound vac left great toe area Gait Training Gait (FIM): 5 Distance: 150'x2 Gait Level of Assist: 5 Gait Persons Needed: 1 Gait Assistive Device: FWW Steady ambulation, patient is compliant with his weight bearing status, take occasional standing rest breaks Exercises Supine Ex: Ankle pumps, Quad Set, Glut sets, Heel Slides, Straight leg raise, Hip abd/add Supine Reps: 15 NuStep Minutes: 15 NuStep Workload: 5 Treatments bed mobility and transfers, ambulation, functional strengthening Assessment Current Status: Fair Progress improving general functional mobility PT Short Term Goals Short Term Goals Time Frame: Dec 26, 2018 Transfers (B,C,W/C) (FIM): 5 Gait (FIM): 2 Distance (FIM): 6=916-51 ft Gait Assistive Device: FWW Wheelchair Distance: 150' Stairs (FIM): 2 # of Steps: 1 PT Shelter Goals Shelter Goals PT Block Saw Operator Goals Time Frame: Jan 06, 2019 Transfers (B,C,W/C) (FIM): 6 Sit to Lying (QC): 6 Lying-Sitting on Side/Bed(QC): 6 Sit to Stand (QC): 6 Rollin Roll Left to Right (QC): 6 Chair/Csv-gp-Gnlzd Xfer(QC): 6 Car Transfer (QC): 6 Does the Patient Walk: Yes Gait (FIM): 6 Gait distance (FIM): 3=150 ft Walk 10 feet (QC): 6 Walk 10ft-Uneven Surface(QC): 6 Walk 50ft with 2 Turns (QC): 6 Walk 150 ft (QC): 6 Gait Assistive Device: FWW Does the Pt use WC or Scooter?: Yes Wheelchair (FIM): 6 Wheelchair distance (FIM): 3=150 ft Wheel 50 feet with 2 turns (QC: 6 Stairs (FIM): 5 # of Steps: 4 1 Step (curb) (QC): 6 4 Steps (QC): 6 12 Steps (QC): 88 Picking up an Object (QC): 88 PT Plan Problem List Problem List: Activity Tolerance, Functional Strength, Safety, Balance, Gait, Transfer Treatment/Plan Treatment Plan: Continue Plan of Care Treatment Plan: Bed Mobility, Education, Functional Activity Araceli, Functional Strength, Group Therapy, Gait, Safety, Therapeutic Exercise, Transfers Treatment Duration: Jan 06, 2019 Frequency: At least 5 of 7 days/Wk (IRF) Estimated Hrs Per Day: 1.5 hours per day Patient and/or Family Agrees t: Yes Safety Risks/Education Patient Education: Gait Training, Transfer Techniques, Correct Positioning, Safety Issues Teaching Recipient: Patient Teaching Methods: Demonstration, Discussion Response to Teaching: Reinforcement Needed Time/GCodes Time In: 0800 Time Out: 0900 Total Billed Treatment Time: 60 Total Billed Treatment 1 visit GT 30' EX 30' VIKY MITCHELL PT Dec 26, 2018 08:56
[2018-12-26] MEDS: MAGNESIUM OXIDE (MAG-OX)400 MG TAB PO SCH ×2 (08:57→17:01)
[2018-12-26] MEDS: POLYETHYLENE GLYCOL 17 GM (MIRALAX) PACK PO SCH ×2 (08:58→21:00)
[2018-12-26] MEDS: TERBINAFINE 1% CREAM 1 OZ (LamISIL) TUBE TP SCH ×2 (09:00→21:00)
[2018-12-26] MEDS: FENTANYL PATCH REMOVAL TP SCH (09:33)
--- NOTE | 2018-12-26 11:49 | PM&R Progress Note ---
Subjective This was a face to face visit with the patient. Date Seen by Provider: Dec 26, 2018 Time Seen by Provider: 09:15 Subjective/Events-last exam Patient was seen in his room while wound care managing the left amputation site The wound looks really good No evidence of any erythema or cellulitis or drainage Wound VAC working very well for the patient Hypoglycemia noted so will decrease insulin dosing Date Identified: Dec 26, 2018 Time Identified: 09:00 Medication Intervention: Hypoglycemia will require decrease in insulin dosing Review of Systems Musculoskeletal: foot pain Objective Physician Exam Last Set of Vital Signs Vital Signs Date Time Temp Pulse Resp B/P (MAP) Pulse Ox O2 Delivery O2 Flow Rate FiO2 12/26/18 06:00 97.1 60 18 128/68 (88) 98 Room Air Capillary Refill : I&O Intake and Output 12/25/18 23:59 Intake Total 1190 ml Output Total 2700 ml Balance -1510 ml Intake Oral 1190 ml Output Urine Total 2700 ml General: Alert, Oriented X3, Cooperative, No Acute Distress, Other (thin) HEENT: Atraumatic, PERRLA Neck: Supple, No JVD, No Thyromegaly, +2 Carotid Pulse No Bruit, No LAD Lungs: Clear to Auscultation, Normal Air Movement Heart: Regular Rate, Normal S1, Normal S2 Abdomen: Normal Bowel Sounds, Soft, No Tenderness, No Hepatosplenomegaly, No Masses Extremities: No Clubbing, No Cyanosis, No Edema, Normal Pulses, No Tenderness/ Swelling Skin: No Rashes, No Breakdown, No Significant Lesion Neuro: Normal Speech, Strength at 5/5 X4 Ext, Normal Tone, Sensation Intact, Cranial Nerves 3-12 NL, Reflexes 2+, Other (limping gait left foot wound vac in place) Psych/Mental Status: Mental Status NL, Mood NL Results Lab Data Laboratory Tests 12/23/18 16:45: Glucometer 292H 12/23/18 20:53: Glucometer 98 12/23/18 23:00: Glucometer 136H 12/24/18 05:20: Glucometer 134H 12/24/18 09:17: Glucometer 123H 12/24/18 11:15: Glucometer 76 12/24/18 16:23: Glucometer 90 12/24/18 21:09: Glucometer 81 12/25/18 05:37: Glucometer 104 12/25/18 10:00: Glucometer 86 12/25/18 11:03: Glucometer 84 12/25/18 16:45: Glucometer 139H 12/25/18 19:06: Glucometer 119H 12/25/18 20:52: Glucometer 103 12/26/18 06:13: Glucometer 191H 12/26/18 08:54: Glucometer 46*L 12/26/18 09:27: Glucometer 92 12/26/18 11:00: Glucometer 87 Current Funtional Status Continue wound vac Decrease insulin dose Assessment/Plan Assessment and Plan (1) Amputation toe Status: Acute (2) Diabetes mellitus with insulin therapy Status: Chronic (3) HHNC (hyperglycemic hyperosmolar nonketotic coma) Status: Resolved (4) Malnourished Qualifiers: Qualified Codes: E46 - Unspecified protein-calorie malnutrition Status: Acute (5) COPD (chronic obstructive pulmonary disease) Qualifiers: Qualified Codes: J44.9 - Chronic obstructive pulmonary disease, unspecified Status: Chronic (6) Hypoglycemia Status: Acute Co-Morbidities that are continuing to impact the rehab process: (include details ) ZACKERY PETERS DO Dec 26, 2018 11:49
--- NOTE | 2018-12-26 12:08 | Physician Query Clarification ---
PQ-Debridement Admission/Discharge Admission Date: Dec 19, 2018 at 10:05 Discharge Date: PHYSICIAN RESPONSE QUESTION: Please clarify the depth of the debridement. Please clarify if the debridement was excisional or non-excisional. PQ Debridement : Date of debridement: Dec 23, 2018 Level: Subcutaneous Tissue Type: Excisional In responding to this query, please exercise your independent professional judgment. The purpose of this communication is to more accurately reflect the complexity of your patients condition. The fact that a question is asked does not imply that any particular answer is desired or expected. Thank you for your timely response to this clarification. Requestors name: Lynn THIS PHYSICIAN QUERY FORM IS A PERMANENT PART OF THE MEDICAL RECORD LYNN ZURITA Dec 26, 2018 12:08 HUGO ARROYO DO Dec 27, 2018 13:03
--- NOTE | 2018-12-26 12:20 | Occupational Ther Daily Note ---
OT Current Status-Daily Note Subjective Pt stated, " I am fine, wants to go to toilet." Pain Numeric Pain Scale: 0-No Pain Mental Status/Objective Patient Orientation: Person, Place, Time Therapy Code Descriptions/Definitions Functional [place] Measure: 0=Not Assessed/NA 4=Minimal Assistance 1=Total Assistance 5=Supervision or Setup 2=Maximal Assistance 6=Modified [place] 3=Moderate Assistance 7=Complete [place] Attachments: Drains ADL-Treatment Pt seen today in toilet transfers, toilet hyeigine, bath /sponge -bath in bed , dressing activity & strengthening ex to BUE.,func ambulation with FWW .Non- weight bearing on Left Foot . Pt needs SBA in toilet hyegine & min A in LB dressing garments. 30 reps with 3 lbs wt BUE & 25 reps with red theraband with BUE in all planes of motion. Therapy Code Descriptions/Definitions Functional [place] Measure: 0=Not Assessed/NA 4=Minimal Assistance 1=Total Assistance 5=Supervision or Setup 2=Maximal Assistance 6=Modified [place] 3=Moderate Assistance 7=Complete [place] Therapy Quality Codes: 6 Independent with activity with or without an assistive device 5 Patient requires set up or clean up by helper. Patient completes activity by themselves 4 Supervision or touching assist (CGA). [place] provide cues , steadying assist 3 The helper provides less than half the effort to complete the activity 2 The helper provides more than half the effort to complete the activity 1 Dependent. The helper does all the effort to complete an activity 7 Patient refused to complete or attempt activity 9 The patient did not perform the activity before the current illness or injury 88 Not attempted due to Medical conditions or safety concerns Eating (FIM): 7 Eating (QC): 6 Grooming (FIM): 6 Oral Hygiene (QC): 6 Bathing (FIM): 4 Bathing Location: L Arm, R Arm, L Upper Leg, R Upper Leg, L Lower Leg ( including foot), R Lower Leg (including foot), Chest, Abdomen, Buttocks, Perineal Area Shower/Bathe Self (QC): 4 Upper Body (FIM): 6 Upper Body Dressing (QC): 5 Lower Body Dressing (FIM): 4 Lower Body Dressing (QC): 5 Toileting (FIM): 5 Toileting Hygiene (QC): 5 Transfers (B, C, W/C) (FIM): 6 Toilet/Commode Transfer (FIM): 6 Toilet Transfer (QC): 6 Shower Transfer(FIM): 5 Education OT Patient Education: Correct positioning, Safety issues Teaching Recipient: Patient Teaching Methods: Demonstration, Discussion Response to Teaching: Verbalize Understanding, Return Demonstration OT Short Term Goals Short Term Goals Time Frame: Dec 26, 2018 Toileting(FIM): 5 Transfers (B,C,W/C) (FIM): 5 Toilet/Commode Transfer(FIM): 5 Additional Short Term Goals: 1-Demonstrate ADL Tasks, 2-Verbalize Understanding , 3-ImproveStrength/Araceli 1=Demonstrate adherence to instructed precautions during ADL tasks. 2=Patient will verbalize/demonstrate understanding of assistive devices/ modifications for ADL. 3=Patient will improve strength/tolerance for activity to enable patient to perform ADL's. OT Spotter Driver Goals Nursing Home Goals Time Frame: Jan 09, 2019 Eating (FIM): 6 Eating (QC): 6 Groomin Oral Hygiene (QC): 6 Bathing(FIM): 6 Shower/Bathe Self (QC): 6 Upper Body Dressing(FIM): 6 Upper Body Dressing (QC): 6 Lower Body Dressing(FIM): 6 Lower Body Dressing (QC): 6 On/Off Footwear (QC): 6 Toileting(FIM): 6 Toileting Hygiene (QC): 6 Toilet/Commode Transfer(FIM): 6 Toilet/Commode Transfer (QC): 6 Additional Goals: 1-Demonstrate ADL Tasks, 2-Verbalize Understanding, 3- ImproveStrength/Araceli 1=Demonstrate adherence to instructed precautions during ADL tasks. 2=Patient will verbalize/demonstrate understanding of assistive devices/ modifications for ADL. 3=Patient will improve strength/tolerance for activity to enable patient to perform ADL's. OT Education/Plan Problem List/Assessment Assessment: Decreased Activ Tolerance, Decreased Safety Aware, Decreased UE Strength, Impaired Bed Mobility, Impaired Funct Balance, Impaired Self-Care Skills Pt s/p left great toe amputation. Pt now has wound vac in place and is NWB left foot. Pt demonstrates decreased mobility, strength, ADL functioning, and activity tolerance. Pt to benefit from skilled OT intervention for ADL training , transfers, strengthening, and home safety education to increase functional independence and allow safe discharge plan. Discharge Recommendations Plan/Recommendations: Continue POC Therapy D/C Recommendations: Occupational Therapy Home Care Patient/Family Goals To return home Independently. Treatment Plan/Plan of Care Patient would benefit from OT for education, treatment and training to promote independence in ADL's, mobility, safety and/or upper extremity function for ADL' s. Plan of Care: ADL Retraining, Functional Mobility, Group Exercise/Act as Ind, UE Funct Exercise/Act Treatment Duration: Jan 09, 2019 Frequency: At least 5 of 7 days/Wk (IRF) Estimated Hrs Per Day: 1.5 hours per day Agreement: Yes Rehab Potential: Good Time/GCodes Start Time: 10:15 Stop Time: 11:15 Total Time Billed (hr/min): 60 Billed Treatment Time 1, ADL 45 min, Ex 15 min Total 60 minutes. AGUSTINA AKERS OT Dec 26, 2018 12:19
[2018-12-26] MEDS: ENOXAPARIN 40 MG/0.4 ML (LOVENOX) SYR SC SCH (14:16)
--- NOTE | 2018-12-26 14:34 | Therapy Group Daily Note ---
Therapy Daily Group Note Other/Notes Pt. participated in PT OT group session. Ratio was 3:1. Objective: Demonstrates knowledge of memory strategies to promote safety at home. (met) Understands purpose and objectives of ARU (met) Pt. benefitted from group this date expressing himself well socially. Pt. participated in sharing his own strategies for remembering things at home. Pt. participated in matching images game with others in group again laughing and sharing and having some success at remembering where images are . Pt. wheeled to/from session and in bed post tx with nurse call, phone, tray, all needs met. Start Time: 13:00 Stop Time: 14:15 Total Billed Treatment Time: 75 Total Billed Treatment 1 visit GRP 75VIKY LOPEZ PT Dec 26, 2018 14:34
--- NOTE | 2018-12-26 15:38 | NUR ---
Received referral for medication assistance as pt having difficulty affording his insulin. Pt also in need of diabetic shoes. Will apply for Extra Help through Social Security as I think he will qualify for the Extra Help Prescription Program.
[2018-12-26 17:03] VITALS: BP 125/76
--- NOTE | 2018-12-26 19:08 | NUR ---
bedside report received from ZEE NICOLAS, assume care of pt
--- NOTE | 2018-12-26 21:00 | NUR ---
assessments & interventions completed, see assessments & interventions, pt refused miralax stated had good BM today, fsbs 131, snack given, pt c/o pain to RT & LT feet level 7/10 on numeric scale, Lortab 5 1 tab po given
--- NOTE | 2018-12-26 21:30 | NUR ---
pain level 2/10 on numeric scale
[2018-12-26] MEDS: MELATONIN 3 MG TABLET PO PRN (22:53)
--- NOTE | 2018-12-26 23:00 | NUR ---
requesting something for sleep, melatonin 3mg po given, pt wanting blood sugar checked, fsbs 128
[2018-12-27] MEDS: HYDROcodone/APAP 5 MG/325 MG (LORTAB) TAB PO PRN ×3 (05:42→22:11)
--- NOTE | 2018-12-27 05:42 | NUR ---
c/o lt foot pain level 9/10 on numeric scale Lortab 5 1 tab po given
[2018-12-27 05:50] VITALS: BP 121/74
--- NOTE | 2018-12-27 06:20 | NUR ---
resting quietly in bed, pain level 0/10 on flacc scale
[2018-12-27] MEDS: inSUlin Protamine/ASPart 70/30 1 UNIT/0.01 ML DOSE SC SCH ×2 (07:09→17:30)
--- NOTE | 2018-12-27 07:12 | NUR ---
bedside report given to YAMILE NICOLAS
[2018-12-27] MEDS: MAGNESIUM OXIDE (MAG-OX)400 MG TAB PO SCH ×2 (08:56→17:30)
[2018-12-27] MEDS: POLYETHYLENE GLYCOL 17 GM (MIRALAX) PACK PO SCH ×2 (08:56→21:00)
[2018-12-27] MEDS: TERBINAFINE 1% CREAM 1 OZ (LamISIL) TUBE TP SCH ×2 (09:04→21:09)
--- NOTE | 2018-12-27 09:25 | Physical Therapy Daily Note ---
PT Daily Note-Current Subjective Pt. in bed, wants clothes on and then wants to walk a bit. c/o his breakfast eggs were not how he ordered them and he could not eat the sausage if the eggs arent prepared correctly. This MANAGER ACQUISITION suggested he reorder. Pt. declines but continues to c/o about his order. Pain Location: No Pain Reported Mental Status Patient Orientation: Person, Place, Time, Situation Attachments: Other-See Comments (wound vacc) Transfers Therapy Code Descriptions/Definitions Functional [place] Measure: 0=Not Assessed/NA 4=Minimal Assistance 1=Total Assistance 5=Supervision or Setup 2=Maximal Assistance 6=Modified [place] 3=Moderate Assistance 7=Complete [place] Therapy Quality Codes: 6 Independent with activity with or without an assistive device 5 Patient requires set up or clean up by helper. Patient completes activity by themselves 4 Supervision or touching assist (CGA). [place] provide cues , steadying assist 3 The helper provides less than half the effort to complete the activity 2 The helper provides more than half the effort to complete the activity 1 Dependent. The helper does all the effort to complete an activity 7 Patient refused to complete or attempt activity 9 The patient did not perform the activity before the current illness or injury 88 Not attempted due to Medical conditions or safety concerns Transfers (B, C, W/C) (FIM): 5 Scootin Rollin Supine to/from Sit: 6 Sit to/from Stand: 5 Bed to/from Chair: 5 Weight Bearing Right Lower Extremity: Right Full Weight Bearing Left Lower Extremity: Left Non Weight Bearing Wound vac left great toe area Gait Training Does the Patient Walk?: Yes Gait (FIM): 4 Distance (FIM): 3=150 ft (150x1, 30x1) Gait Level of Assist: 4 Gait Persons Needed: 1 Gait Assistive Device: FWW CGA, assist to secure wound vacc and w/c to follow Treatments pt. observed to eula pants and shirt indep sitting at bedside Assessment Current Status: Good Progress PT Short Term Goals Short Term Goals Time Frame: Dec 26, 2018 Transfers (B,C,W/C) (FIM): 5 Gait (FIM): 2 Distance (FIM): 6=075-71 ft Gait Assistive Device: FWW Wheelchair Distance: 150' Stairs (FIM): 2 # of Steps: 1 PT Halfway Goals Medical Office Rep Goals PT Halfway Goals Time Frame: Jan 06, 2019 Transfers (B,C,W/C) (FIM): 6 Sit to Lying (QC): 6 Lying-Sitting on Side/Bed(QC): 6 Sit to Stand (QC): 6 Rollin Roll Left to Right (QC): 6 Chair/Ade-fa-Htgmk Xfer(QC): 6 Car Transfer (QC): 6 Does the Patient Walk: Yes Gait (FIM): 6 Gait distance (FIM): 3=150 ft Walk 10 feet (QC): 6 Walk 10ft-Uneven Surface(QC): 6 Walk 50ft with 2 Turns (QC): 6 Walk 150 ft (QC): 6 Gait Assistive Device: FWW Does the Pt use WC or Scooter?: Yes Wheelchair (FIM): 6 Wheelchair distance (FIM): 3=150 ft Wheel 50 feet with 2 turns (QC: 6 Stairs (FIM): 5 # of Steps: 4 1 Step (curb) (QC): 6 4 Steps (QC): 6 12 Steps (QC): 88 Picking up an Object (QC): 88 PT Plan Treatment/Plan Treatment Plan: Continue Plan of Care Treatment Plan: Bed Mobility, Education, Functional Activity Araceli, Functional Strength, Group Therapy, Gait, Safety, Therapeutic Exercise, Transfers Treatment Duration: Jan 06, 2019 Frequency: At least 5 of 7 days/Wk (IRF) Estimated Hrs Per Day: 1.5 hours per day Patient and/or Family Agrees t: Yes Safety Risks/Education Patient Education: Gait Training, Transfer Techniques, Correct Positioning, Disease Process, Safety Issues Teaching Recipient: Patient Teaching Methods: Demonstration, Discussion Response to Teaching: Verbalize Understanding, Return Demonstration, Reinforcement Needed Time/GCodes Time In: 845 Time Out: 905 Total Billed Treatment Time: 20 Total Billed Treatment 1,GT20m G Codes Necessary: JAIME Burleson MANAGER ACQUISITION Dec 27, 2018 09:25
--- NOTE | 2018-12-27 12:36 | PM&R Progress Note ---
Subjective HPI/CC On Admission Date Seen by Provider: Dec 27, 2018 Time Seen by Provider: 10:45 CC: Left great toe amputation HPI: This is a 58-year-old white male clinic patient of [facility] with a past medical history of diabetes and 3 years ago a debilitating critical illness resulted in long course in inpatient rehab and even a feeding tube who presents to the inpatient rehab for amputation education and therapy after a left great toe amputation due to severe osteomyelitis and nonhealing wound. Patient has a wound VAC and pain is controlled. Hyperglycemia will be managed with increase insulin dose of his 70/30 insulin that he takes at home. Patient is malnourished and will be encouraged to take in adequate nutrition. He will be discharged home after recovery. Subjective/Events-last exam Patient doing much better Wound VAC in place Blood sugars much improved and no hypoglycemia Overall pain is well controlled Disposition to home with home care with wound VAC next week Review of Systems General: Fatigue Musculoskeletal: foot pain Objective Exam Vital Signs Vital Signs Date Time Temp Pulse Resp B/P (MAP) Pulse Ox O2 Delivery O2 Flow Rate FiO2 12/27/18 09:00 Room Air 12/27/18 05:50 98.4 63 16 121/74 (90) 96 Capillary Refill : General Appearance: No Apparent Distress, WD/WN, Thin Respiratory: Chest Non Tender, Lungs Clear, Normal Breath Sounds, No Accessory Muscle Use, No Respiratory Distress Cardiovascular: Regular Rate, Rhythm, No Edema, No Gallop, No JVD, No Murmur, Normal Peripheral Pulses Extremity: Other (left great toe amputation with wound vac in place) Neurologic/Psychiatric: Alert, Oriented x3, No Motor/Sensory Deficits, Normal Mood/Affect Results/Procedures Lab Patient resulted labs reviewed. Assessment/Plan Assessment and Plan Assess & Plan/Chief Complaint Assessment: s/p Septic shock due to cellulitis and osteomyelitis of the left great toe s/p amputation s/p Hyperosmolar nonketotic state requiring insulin drip s/p Acute renal failure Long-standing debility dating back to 2014 when reviewed inpatient rehab course History of bilateral pneumonia with respiratory failure requiring intubation at [facility] 3 years ago DM on insulin Malnourished Plan: Rehab for wound vac and amputation training Insulin dose decreased with improved sugars rather than hypoglycemia Lovenox for DVT prophylaxis Diagnosis/Problems Diagnosis/Problems (1) Amputation toe Status: Acute (2) Diabetes mellitus with insulin therapy Status: Chronic (3) HHNC (hyperglycemic hyperosmolar nonketotic coma) Status: Resolved Resolution Date/Time: 12/16/18 @ 06:41 (4) Malnourished Status: Acute Qualifiers: Malnutrition type: unspecified type Qualified Codes: E46 - Unspecified protein-calorie malnutrition (5) COPD (chronic obstructive pulmonary disease) Status: Chronic Qualifiers: COPD type: unspecified COPD Qualified Codes: J44.9 - Chronic obstructive pulmonary disease, unspecified (6) Hypoglycemia Status: Acute Clinical Quality Measures DVT/VTE Risk/Contraindication: Risk Factor Score Per Nursin RFS Level Per Nursing on Admit: 4+=Very High ZACKERY PETERS DO Dec 27, 2018 12:36
[2018-12-27] MEDS: FENTANYL PATCH REMOVAL TP SCH (14:54)
[2018-12-27] MEDS: ENOXAPARIN 40 MG/0.4 ML (LOVENOX) SYR SC SCH (14:54)
[2018-12-27 18:00] VITALS: BP 113/68
--- NOTE | 2018-12-27 19:06 | NUR ---
bedside report received from YAMILE NICOLAS, assume care of pt
--- NOTE | 2018-12-27 21:00 | NUR ---
assessments & interventions completed, see assessments & interventions, fsbs 115 pt refused miralax stating i had BM today
[2018-12-27] MEDS: MELATONIN 3 MG TABLET PO PRN (21:08)
--- NOTE | 2018-12-27 22:11 | NUR ---
c/o [place] lower extremity pain level 9/10 on numeric scale, Lortab 5 1 tab po given
--- NOTE | 2018-12-27 22:50 | NUR ---
resting quietly in bed, pain level 0/10 on flacc scale
[2018-12-28 05:24] VITALS: BP 118/65
[2018-12-28] MEDS: HYDROcodone/APAP 5 MG/325 MG (LORTAB) TAB PO PRN ×3 (05:47→20:13)
--- NOTE | 2018-12-28 05:47 | NUR ---
c/o lower extremity pain level 8/10 on numeric scale, lortab 5 1 tab po given
--- NOTE | 2018-12-28 06:30 | NUR ---
pain level 2/10 on numeric scale
--- NOTE | 2018-12-28 07:16 | NUR ---
bedside report given to ANTONIO NICOLAS
[2018-12-28] MEDS: inSUlin Protamine/ASPart 70/30 1 UNIT/0.01 ML DOSE SC SCH ×2 (07:44→17:44)
[2018-12-28] MEDS: MAGNESIUM OXIDE (MAG-OX)400 MG TAB PO SCH ×2 (08:39→17:44)
[2018-12-28] MEDS: POLYETHYLENE GLYCOL 17 GM (MIRALAX) PACK PO SCH (08:39)
[2018-12-28] MEDS: fentaNYL PATCH 25 MCG (DURAGESIC) TD SCH (08:40)
[2018-12-28] MEDS: FENTANYL PATCH REMOVAL TP SCH (08:40)
[2018-12-28] MEDS: TERBINAFINE 1% CREAM 1 OZ (LamISIL) TUBE TP SCH ×2 (08:41→20:16)
[2018-12-28] MEDS ORDERED: POLYETHYLENE GLYCOL 17 GM (MIRALAX) PACK PO PRN (13:00)
--- NOTE | 2018-12-28 13:21 | PM&R Progress Note ---
Subjective HPI/CC On Admission Date Seen by Provider: Dec 28, 2018 Time Seen by Provider: 12:30 CC: Left great toe amputation HPI: This is a 58-year-old white male clinic patient of [facility] with a past medical history of diabetes and 3 years ago a debilitating critical illness resulted in long course in inpatient rehab and even a feeding tube who presents to the inpatient rehab for amputation education and therapy after a left great toe amputation due to severe osteomyelitis and nonhealing wound. Patient has a wound VAC and pain is controlled. Hyperglycemia will be managed with increase insulin dose of his 70/30 insulin that he takes at home. Patient is malnourished and will be encouraged to take in adequate nutrition. He will be discharged home after recovery. Subjective/Events-last exam Patient's pain appears to be improved but he still states that it is an 8 the patient does not appear to be in any distress Patient appears to have dependency issues on narcotics and illicit drugs in the past so we'll monitor that closely Blood sugars elevated so we'll increase 70/30 insulin to 21 units same frequency Discharge planning Review of Systems Musculoskeletal: foot pain Objective Exam Vital Signs Vital Signs Date Time Temp Pulse Resp B/P (MAP) Pulse Ox O2 Delivery O2 Flow Rate FiO2 12/28/18 09:48 Room Air 12/28/18 05:24 98.7 63 18 118/65 (82) 98 Capillary Refill : General Appearance: No Apparent Distress, WD/WN Respiratory: Chest Non Tender, Lungs Clear, Normal Breath Sounds, No Accessory Muscle Use, No Respiratory Distress Cardiovascular: Regular Rate, Rhythm, No Edema, No Gallop, No JVD, No Murmur, Normal Peripheral Pulses Neurologic/Psychiatric: Alert, Oriented x3, No Motor/Sensory Deficits, Normal Mood/Affect, Other (amputated left great toe with wound vac) Results/Procedures Lab Patient resulted labs reviewed. Assessment/Plan Assessment and Plan Assess & Plan/Chief Complaint Assessment: s/p Septic shock due to cellulitis and osteomyelitis of the left great toe s/p amputation s/p Hyperosmolar nonketotic state requiring insulin drip s/p Acute renal failure Long-standing debility dating back to 2014 when reviewed inpatient rehab course History of bilateral pneumonia with respiratory failure requiring intubation at [facility] 3 years ago DM on insulin Malnourished Plan: Rehab for wound vac and amputation training Insulin dose decreased Lovenox for DVT prophylaxis Diagnosis/Problems Diagnosis/Problems (1) Amputation toe Status: Acute (2) Diabetes mellitus with insulin therapy Status: Chronic (3) HHNC (hyperglycemic hyperosmolar nonketotic coma) Status: Resolved Resolution Date/Time: 12/16/18 @ 06:41 (4) Malnourished Status: Acute Qualifiers: Malnutrition type: unspecified type Qualified Codes: E46 - Unspecified protein-calorie malnutrition (5) COPD (chronic obstructive pulmonary disease) Status: Chronic Qualifiers: COPD type: unspecified COPD Qualified Codes: J44.9 - Chronic obstructive pulmonary disease, unspecified (6) Hypoglycemia Status: Acute Clinical Quality Measures DVT/VTE Risk/Contraindication: Risk Factor Score Per Nursin RFS Level Per Nursing on Admit: 4+=Very High ZACKERY PETERS DO Dec 28, 2018 13:21
--- NOTE | 2018-12-28 13:28 | NUR ---
Dr. Chappell to floor. May change Miralax to PRN per patient's request. Informed of hyperglycemia. Order to increase Novolog 70/30 to 21 units SC BID with meals.
[2018-12-28] MEDS: ENOXAPARIN 40 MG/0.4 ML (LOVENOX) SYR SC SCH (14:08)
[2018-12-28 17:55] VITALS: BP 118/69
--- NOTE | 2018-12-28 19:04 | NUR ---
bedside report received from ANTONIO NICOLAS, assume care of pt
[2018-12-28] MEDS: MELATONIN 3 MG TABLET PO PRN (20:13)
--- NOTE | 2018-12-28 20:13 | NUR ---
c/o lower extremity pain, level 9/10 on numeric scale, lortab 5 1 tab po given
--- NOTE | 2018-12-28 21:00 | NUR ---
assessments & interventions completed, see assessments & interventions, fsbs 100, eating hs snack, rates pain at 2/10 on numeric scale
[2018-12-29 05:25] VITALS: BP 129/79
[2018-12-29] MEDS: HYDROcodone/APAP 5 MG/325 MG (LORTAB) TAB PO PRN ×4 (06:22→21:18)
--- NOTE | 2018-12-29 06:22 | NUR ---
c/o lower extremity pain, level 7/10 on numeric scale, lortab 5 1 tab po given
[2018-12-29] MEDS: inSUlin Protamine/ASPart 70/30 1 UNIT/0.01 ML DOSE SC SCH ×2 (06:42→18:10)
--- NOTE | 2018-12-29 06:56 | NUR ---
pain level 2/10 on numeric scale
--- NOTE | 2018-12-29 07:12 | NUR ---
bedside report given to MONA NICOLAS
[2018-12-29] MEDS: FENTANYL PATCH REMOVAL TP SCH (07:42)
[2018-12-29] MEDS: TERBINAFINE 1% CREAM 1 OZ (LamISIL) TUBE TP SCH ×2 (08:39→21:18)
[2018-12-29] MEDS: MAGNESIUM OXIDE (MAG-OX)400 MG TAB PO SCH ×2 (08:39→18:10)
--- NOTE | 2018-12-29 08:40 | PM&R Progress Note ---
Subjective HPI/CC On Admission Date Seen by Provider: Dec 29, 2018 Time Seen by Provider: 08:15 CC: Left great toe amputation HPI: This is a 58-year-old white male clinic patient of [facility] with a past medical history of diabetes and 3 years ago a debilitating critical illness resulted in long course in inpatient rehab and even a feeding tube who presents to the inpatient rehab for amputation education and therapy after a left great toe amputation due to severe osteomyelitis and nonhealing wound. Patient has a wound VAC and pain is controlled. Hyperglycemia will be managed with increase insulin dose of his 70/30 insulin that he takes at home. Patient is malnourished and will be encouraged to take in adequate nutrition. He will be discharged home after recovery. Subjective/Events-last exam Patient doing well Still has groin itching even Lamisil topical applied twice a day so added Diflucan PO May need Lamisil by mouth Wound VAC in place Disposition likely this week home Review of Systems Tinea cruris Objective Exam Vital Signs Vital Signs Date Time Temp Pulse Resp B/P (MAP) Pulse Ox O2 Delivery O2 Flow Rate FiO2 12/29/18 08:00 Room Air 12/29/18 05:25 98.4 58 16 129/79 (96) 98 Capillary Refill : General Appearance: No Apparent Distress, WD/WN Respiratory: Chest Non Tender, Lungs Clear, Normal Breath Sounds, No Accessory Muscle Use, No Respiratory Distress Cardiovascular: Regular Rate, Rhythm, No Edema, No Gallop, No JVD, No Murmur, Normal Peripheral Pulses Extremity: Normal Capillary Refill, Normal Inspection, Normal Range of Motion, Non Tender, No Calf Tenderness, No Pedal Edema, Other (Left great toe with wound VAC on amputation site of great toe) Neurologic/Psychiatric: Alert, Oriented x3, No Motor/Sensory Deficits, Normal Mood/Affect Results/Procedures Lab Patient resulted labs reviewed. Assessment/Plan Assessment and Plan Assess & Plan/Chief Complaint Assessment: s/p Septic shock due to cellulitis and osteomyelitis of the left great toe s/p amputation s/p Hyperosmolar nonketotic state requiring insulin drip s/p Acute renal failure Long-standing debility dating back to 2014 when reviewed inpatient rehab course History of bilateral pneumonia with respiratory failure requiring intubation at [facility] 3 years ago DM on insulin Malnourished Tinea cruris Plan: Rehab for wound vac and amputation training Insulin dose decreased Lovenox for DVT prophylaxis Lamisil cream Diagnosis/Problems Diagnosis/Problems (1) Amputation toe Status: Acute (2) Diabetes mellitus with insulin therapy Status: Chronic (3) HHNC (hyperglycemic hyperosmolar nonketotic coma) Status: Resolved Resolution Date/Time: 12/16/18 @ 06:41 (4) Malnourished Status: Acute Qualifiers: Malnutrition type: unspecified type Qualified Codes: E46 - Unspecified protein-calorie malnutrition (5) COPD (chronic obstructive pulmonary disease) Status: Chronic Qualifiers: COPD type: unspecified COPD Qualified Codes: J44.9 - Chronic obstructive pulmonary disease, unspecified (6) Hypoglycemia Status: Acute (7) Encounter for management of wound VAC Status: Acute (8) Tinea cruris Status: Acute Clinical Quality Measures DVT/VTE Risk/Contraindication: Risk Factor Score Per Nursin RFS Level Per Nursing on Admit: 4+=Very High ZACKERY PETERS DO Dec 29, 2018 08:40
[2018-12-29] MEDS: fluCOnazole (DIFLUCAN) 100 MG TAB PO SCH (10:02)
--- NOTE | 2018-12-29 12:03 | Physical Therapy Daily Note ---
PT Daily Note-Current Subjective Patient in wheelchair pre tx, agrees to PT, has 5/10 pain in left foot. Appearance Patient sitting EOB post tx with nurse call, phone, tray, all needs met. Mental Status Patient Orientation: Person, Place, Situation, Normal For Age wound vac Transfers Therapy Code Descriptions/Definitions Functional [place] Measure: 0=Not Assessed/NA 4=Minimal Assistance 1=Total Assistance 5=Supervision or Setup 2=Maximal Assistance 6=Modified [place] 3=Moderate Assistance 7=Complete [place] Therapy Quality Codes: 6 Independent with activity with or without an assistive device 5 Patient requires set up or clean up by helper. Patient completes activity by themselves 4 Supervision or touching assist (CGA). [place] provide cues , steadying assist 3 The helper provides less than half the effort to complete the activity 2 The helper provides more than half the effort to complete the activity 1 Dependent. The helper does all the effort to complete an activity 7 Patient refused to complete or attempt activity 9 The patient did not perform the activity before the current illness or injury 88 Not attempted due to Medical conditions or safety concerns Transfers (B, C, W/C) (FIM): 6 Scootin Rollin Supine to/from Sit: 6 Bed to/from Chair: 6 Weight Bearing Right Lower Extremity: Right Full Weight Bearing Left Lower Extremity: Left Non Weight Bearing Wound vac left great toe area Gait Training Gait (FIM): 5 Distance: 150'x2 Gait Level of Assist: 5 Gait Persons Needed: 1 Gait Assistive Device: FWW Patient needs assist to carry wound vac, he only took one rest break each way ( standing). Patient ambulates slowly and is able to maintain his weight bearing status. Wheelchair Training Does the Pt Use a Wheelchair?: No Exercises Supine Ex: Ankle pumps, Quad Set, Glut sets, Heel Slides, Short Arc Quads, Straight leg raise, Hip abd/add Supine Reps: 20 NuStep Minutes: 15 NuStep Workload: 5 (left leg not used) Treatments bed mobility and transfers, ambulation, functional strengthening Assessment Current Status: Fair Progress improved endurance PT Short Term Goals Short Term Goals Time Frame: Dec 26, 2018 Transfers (B,C,W/C) (FIM): 5 Gait (FIM): 2 Distance (FIM): 9=348-34 ft Gait Assistive Device: FWW Wheelchair Distance: 150' Stairs (FIM): 2 # of Steps: 1 PT Half-Way Goals Half-Way Goals PT Half-Way Goals Time Frame: Jan 06, 2019 Transfers (B,C,W/C) (FIM): 6 Sit to Lying (QC): 6 Lying-Sitting on Side/Bed(QC): 6 Sit to Stand (QC): 6 Rollin Roll Left to Right (QC): 6 Chair/Cuj-wq-Vetcs Xfer(QC): 6 Car Transfer (QC): 6 Does the Patient Walk: Yes Gait (FIM): 6 Gait distance (FIM): 3=150 ft Walk 10 feet (QC): 6 Walk 10ft-Uneven Surface(QC): 6 Walk 50ft with 2 Turns (QC): 6 Walk 150 ft (QC): 6 Gait Assistive Device: FWW Does the Pt use WC or Scooter?: Yes Wheelchair (FIM): 6 Wheelchair distance (FIM): 3=150 ft Wheel 50 feet with 2 turns (QC: 6 Stairs (FIM): 5 # of Steps: 4 1 Step (curb) (QC): 6 4 Steps (QC): 6 12 Steps (QC): 88 Picking up an Object (QC): 88 PT Plan Problem List Problem List: Activity Tolerance, Functional Strength, Safety, Balance, Gait, Transfer, ROM Treatment/Plan Treatment Plan: Continue Plan of Care Treatment Plan: Bed Mobility, Education, Functional Activity Araceli, Functional Strength, Group Therapy, Gait, Safety, Therapeutic Exercise, Transfers Treatment Duration: Jan 06, 2019 Frequency: At least 5 of 7 days/Wk (IRF) Estimated Hrs Per Day: 1.5 hours per day Patient and/or Family Agrees t: Yes Safety Risks/Education Patient Education: Gait Training, Transfer Techniques, Correct Positioning, Safety Issues Teaching Recipient: Patient Teaching Methods: Demonstration, Discussion Response to Teaching: Reinforcement Needed Time/GCodes Time In: 1115 Time Out: 1215 Total Billed Treatment Time: 60 Total Billed Treatment 1 visit EX 30' GT 30' VIKY MITCHELL PT Dec 29, 2018 12:03
--- NOTE | 2018-12-29 14:45 | Physical Therapy Daily Note ---
PT Daily Note-Current Subjective Agreeable to PT. ; Reports he thinks he is going to his brother's home in [place] when he leaves here. Mental Status Patient Orientation: Person, Place, Time, Situation Transfers Therapy Code Descriptions/Definitions Functional [place] Measure: 0=Not Assessed/NA 4=Minimal Assistance 1=Total Assistance 5=Supervision or Setup 2=Maximal Assistance 6=Modified [place] 3=Moderate Assistance 7=Complete [place] Therapy Quality Codes: 6 Independent with activity with or without an assistive device 5 Patient requires set up or clean up by helper. Patient completes activity by themselves 4 Supervision or touching assist (CGA). [place] provide cues , steadying assist 3 The helper provides less than half the effort to complete the activity 2 The helper provides more than half the effort to complete the activity 1 Dependent. The helper does all the effort to complete an activity 7 Patient refused to complete or attempt activity 9 The patient did not perform the activity before the current illness or injury 88 Not attempted due to Medical conditions or safety concerns Weight Bearing Right Lower Extremity: Right Full Weight Bearing Left Lower Extremity: Left Non Weight Bearing Wound vac left great toe area Gait Training Does the Patient Walk?: Yes Gait (FIM): 5 Distance (FIM): 3=150 ft Distance: 150 ft x 2; 50 ft x 2 Gait Assistive Device: FWW NWB left LE Stair Training Stair Training: Handrails/: 2 handrails Stairs (FIM): 2 #of Steps: 4 (with Close CGA) Assessment Current Status: Good Progress Safe with gait distance walked; did well on stairs as well; requires CGA for safety but no roger LOB. PT Short Term Goals Short Term Goals Time Frame: Dec 26, 2018 Transfers (B,C,W/C) (FIM): 5 Gait (FIM): 2 Distance (FIM): 0=913-72 ft Gait Assistive Device: FWW Wheelchair Distance: 150' Stairs (FIM): 2 # of Steps: 1 PT Delivery Engineer Goals Delivery Engineer Goals PT Delivery Engineer Goals Time Frame: Jan 06, 2019 Transfers (B,C,W/C) (FIM): 6 Sit to Lying (QC): 6 Lying-Sitting on Side/Bed(QC): 6 Sit to Stand (QC): 6 Rollin Roll Left to Right (QC): 6 Chair/Vhg-rj-Jkniw Xfer(QC): 6 Car Transfer (QC): 6 Does the Patient Walk: Yes Gait (FIM): 6 Gait distance (FIM): 3=150 ft Walk 10 feet (QC): 6 Walk 10ft-Uneven Surface(QC): 6 Walk 50ft with 2 Turns (QC): 6 Walk 150 ft (QC): 6 Gait Assistive Device: FWW Does the Pt use WC or Scooter?: Yes Wheelchair (FIM): 6 Wheelchair distance (FIM): 3=150 ft Wheel 50 feet with 2 turns (QC: 6 Stairs (FIM): 5 # of Steps: 4 1 Step (curb) (QC): 6 4 Steps (QC): 6 12 Steps (QC): 88 Picking up an Object (QC): 88 PT Plan Problem List Problem List: Activity Tolerance, Functional Strength, Safety Treatment/Plan Treatment Plan: Continue Plan of Care Treatment Plan: Bed Mobility, Education, Functional Activity Araceli, Functional Strength, Group Therapy, Gait, Safety, Therapeutic Exercise, Transfers Treatment Duration: Jan 06, 2019 Frequency: At least 5 of 7 days/Wk (IRF) Estimated Hrs Per Day: 1.5 hours per day Patient and/or Family Agrees t: Yes Safety Risks/Education Patient Education: Steps Teaching Recipient: Patient Teaching Methods: Demonstration, Discussion Response to Teaching: Return Demonstration, Reinforcement Needed Time/GCodes Time In: 1330 Time Out: 1400 Total Billed Treatment Time: 30 Total Billed Treatment visit GT 30 JENNA HOGUE PT Dec 29, 2018 14:45
[2018-12-29] MEDS: ENOXAPARIN 40 MG/0.4 ML (LOVENOX) SYR SC SCH (14:48)
--- NOTE | 2018-12-29 16:27 | NUR ---
Pt has applied for Extra Help through the Social Security Program for assistance with the cost of his prescriptions. Will follow for post discharge needs.
--- NOTE | 2018-12-29 16:42 | Occupational Ther Daily Note ---
OT Current Status-Daily Note Subjective Pt stated, " Oh I am fine . I am ready for shower." Pain Numeric Pain Scale: 5-Moderate Pain Location: Left Location Body Site: Foot Pain Description: Ache, Sharp Mental Status/Objective Patient Orientation: Person, Place, Time Therapy Code Descriptions/Definitions Functional [place] Measure: 0=Not Assessed/NA 4=Minimal Assistance 1=Total Assistance 5=Supervision or Setup 2=Maximal Assistance 6=Modified [place] 3=Moderate Assistance 7=Complete [place] Attachments: Drains, IV ADL-Treatment Pt seen for shower/bath retraining, dressing retraining , trunk balancing ex, & theraex BUE. Shower water in Pt's room was cold & thus pt took shower in Therapy shower room in bath tub. Pt transfers in bath tub & sat on a bath bench with SBA to prevent fall & for safety purpose.. Pt need min A in shower to was/ shampoo back & hairs Pt shampoo & wash his upper & lower bodt , abdomen, perineals, buttock & hairs with Min-SBA Pt dress UB Independently, LB with SBA. dry his body with towels Independently. Participated in Theraex to BUE 25 reps x 2 sets x 3 LB WTS, 30 reps with red theraband . Eating (FIM): 7 Grooming (FIM): 5 Bathing (FIM): 4 Bathing Location: L Arm, R Arm, L Upper Leg, R Upper Leg, L Lower Leg ( including foot), R Lower Leg (including foot), Chest, Abdomen, Buttocks, Perineal Area Upper Body (FIM): 6 Lower Body Dressing (FIM): 4 Toileting (FIM): 5 Transfers (B, C, W/C) (FIM): 5 Toilet/Commode Transfer (FIM): 5 Tub Transfer(FIM): 5 Education OT Patient Education: Correct positioning, Safety issues OT Short Term Goals Short Term Goals Time Frame: Dec 26, 2018 Toileting(FIM): 5 Transfers (B,C,W/C) (FIM): 5 Toilet/Commode Transfer(FIM): 5 Additional Short Term Goals: 1-Demonstrate ADL Tasks, 2-Verbalize Understanding , 3-ImproveStrength/Araceli 1=Demonstrate adherence to instructed precautions during ADL tasks. 2=Patient will verbalize/demonstrate understanding of assistive devices/ modifications for ADL. 3=Patient will improve strength/tolerance for activity to enable patient to perform ADL's. OT Jail Goals Jail Goals Time Frame: Jan 09, 2019 Eating (FIM): 6 Grooming(FIM): 6 Bathing(FIM): 6 Upper Body Dressing(FIM): 6 Lower Body Dressing(FIM): 6 Toileting(FIM): 6 Toilet/Commode Transfer(FIM): 6 Additional Goals: 1-Demonstrate ADL Tasks, 2-Verbalize Understanding, 3- ImproveStrength/Araceli 1=Demonstrate adherence to instructed precautions during ADL tasks. 2=Patient will verbalize/demonstrate understanding of assistive devices/ modifications for ADL. 3=Patient will improve strength/tolerance for activity to enable patient to perform ADL's. OT Education/Plan Problem List/Assessment Assessment: Decreased Activ Tolerance, Decreased Safety Aware, Decreased UE Strength, Impaired Funct Balance, Impaired Self-Care Skills Pt s/p left great toe amputation. Pt now has wound vac in place and is NWB left foot. Pt demonstrates decreased mobility, strength, ADL functioning, and activity tolerance. Pt to benefit from skilled OT intervention for ADL training , transfers, strengthening, and home safety education to increase functional independence and allow safe discharge plan. Discharge Recommendations Plan/Recommendations: Continue POC Therapy D/C Recommendations: Home Independently Equpiment Recommendations-D/C: Bath Chair, Extended Shower Sprayer, Blueprint Clerk Treatment Plan/Plan of Care Treatment,Training & Education: Yes Patient would benefit from OT for education, treatment and training to promote independence in ADL's, mobility, safety and/or upper extremity function for ADL' s. Plan of Care: ADL Retraining, Functional Mobility, Group Exercise/Act as Ind, UE Funct Exercise/Act Treatment Duration: Jan 09, 2019 Frequency: At least 5 of 7 days/Wk (IRF) Estimated Hrs Per Day: 1.5 hours per day Agreement: Yes Rehab Potential: Good Time/GCodes Start Time: 11:00 Stop Time: 15:45 Total Time Billed (hr/min): 90 ([id number] 15 min & 2319-6316 75 min Toatal 90 min) Billed Treatment Time 1, ADLs 60 min, Ex 30 min total 90 min. AGUSTINA AKERS OT Dec 29, 2018 16:42
[2018-12-29 18:08] VITALS: BP 141/82
[2018-12-30 06:00] VITALS: BP 118/70
[2018-12-30] MEDS: HYDROcodone/APAP 5 MG/325 MG (LORTAB) TAB PO PRN ×4 (06:26→20:29)
[2018-12-30] MEDS: inSUlin Protamine/ASPart 70/30 1 UNIT/0.01 ML DOSE SC SCH ×2 (06:36→16:55)
--- NOTE | 2018-12-30 08:29 | PM&R Progress Note ---
Subjective HPI/CC On Admission Date Seen by Provider: Dec 30, 2018 Time Seen by Provider: 08:15 CC: Left great toe amputation HPI: This is a 58-year-old white male clinic patient of [facility] with a past medical history of diabetes and 3 years ago a debilitating critical illness resulted in long course in inpatient rehab and even a feeding tube who presents to the inpatient rehab for amputation education and therapy after a left great toe amputation due to severe osteomyelitis and nonhealing wound. Patient has a wound VAC and pain is controlled. Hyperglycemia will be managed with increase insulin dose of his 70/30 insulin that he takes at home. Patient is malnourished and will be encouraged to take in adequate nutrition. He will be discharged home after recovery. Subjective/Events-last exam Blood sugar was low today at 50 Discharge planned for 01/02/19 May be living in a truck or with his brother Has no complaints otherwise Lamisil 250mg daily for Tinea Cruris will be started and discontinue Diflucan and maintain Lamisil twice daily cream Not a [facility] as originally thought he goes to doctor in [place] Review of Systems Musculoskeletal: foot pain Tinea cruris Objective Exam Vital Signs Vital Signs Date Time Temp Pulse Resp B/P (MAP) Pulse Ox O2 Delivery O2 Flow Rate FiO2 12/30/18 17:59 97.7 66 18 114/66 (82) 98 Room Air Capillary Refill : General Appearance: No Apparent Distress, WD/WN, Chronically ill, Thin Respiratory: Chest Non Tender, Lungs Clear, Normal Breath Sounds, No Accessory Muscle Use, No Respiratory Distress Cardiovascular: Regular Rate, Rhythm, No Edema, No Gallop, No JVD, No Murmur, Normal Peripheral Pulses Extremity: Other (left great toe amputation with wound vac) Neurologic/Psychiatric: Alert, Oriented x3, No Motor/Sensory Deficits, Normal Mood/Affect Skin: Other (tinea cruris) Results/Procedures Lab Patient resulted labs reviewed. Assessment/Plan Assessment and Plan Assess & Plan/Chief Complaint Assessment: s/p Septic shock due to cellulitis and osteomyelitis of the left great toe s/p amputation s/p Hyperosmolar nonketotic state requiring insulin drip s/p Acute renal failure Long-standing debility dating back to 2014 when reviewed inpatient rehab course History of bilateral pneumonia with respiratory failure requiring intubation at [facility] 3 years ago DM on insulin Malnourished Tinea cruris Plan: Rehab for wound vac and amputation training Insulin dose decreased due to hypoglycemia Lovenox for DVT prophylaxis Lamisil cream along with 3 dose of Lamisil PO Diagnosis/Problems Diagnosis/Problems (1) Amputation toe Status: Acute (2) Diabetes mellitus with insulin therapy Status: Chronic (3) HHNC (hyperglycemic hyperosmolar nonketotic coma) Status: Resolved Resolution Date/Time: 12/16/18 @ 06:41 (4) Malnourished Status: Acute Qualifiers: Malnutrition type: unspecified type Qualified Codes: E46 - Unspecified protein-calorie malnutrition (5) COPD (chronic obstructive pulmonary disease) Status: Chronic Qualifiers: COPD type: unspecified COPD Qualified Codes: J44.9 - Chronic obstructive pulmonary disease, unspecified (6) Hypoglycemia Status: Acute (7) Encounter for management of wound VAC Status: Acute (8) Tinea cruris Status: Acute Clinical Quality Measures DVT/VTE Risk/Contraindication: Risk Factor Score Per Nursin RFS Level Per Nursing on Admit: 4+=Very High ZACKERY PETERS DO Dec 30, 2018 08:29
--- NOTE | 2018-12-30 09:00 | NUR ---
OT reports that pt felt that his b/s may be getting low when working in gym, was 46, provided christiano Soriano, pt consuming this now, will re-check.
[2018-12-30] MEDS: fluCOnazole (DIFLUCAN) 100 MG TAB PO SCH (09:26)
[2018-12-30] MEDS: TERBINAFINE 1% CREAM 1 OZ (LamISIL) TUBE TP SCH ×2 (09:26→20:31)
[2018-12-30] MEDS: MAGNESIUM OXIDE (MAG-OX)400 MG TAB PO SCH ×2 (09:26→16:55)
--- NOTE | 2018-12-30 09:40 | NUR ---
PT EATING WELL, 100% MEALS. PT HAS NOT BEEN WEIGHED SINCE ADMISSION. RECOMMEND WEEKLY WEIGHTS TO BETTER ASSESS ADEQUACY OF PO INTAKE. CONT TO FOLLOW.
--- NOTE | 2018-12-30 10:35 | Occupational Ther Daily Note ---
OT Current Status-Daily Note Subjective Pt sitting in his bed , turning head down. Pt stated ," I am fine . Don't need a shower today." Pain Numeric Pain Scale: 5-Moderate Pain Location: Left Location Body Site: Foot Mental Status/Objective Patient Orientation: Person, Place, Time Therapy Code Descriptions/Definitions Functional [place] Measure: 0=Not Assessed/NA 4=Minimal Assistance 1=Total Assistance 5=Supervision or Setup 2=Maximal Assistance 6=Modified [place] 3=Moderate Assistance 7=Complete [place] Attachments: Drains, IV ADL-Treatment Pt performed sponge bath in bed using warm READY-BATH Wipes Independently with set up. Pt wipes his front & back of neck, face, hairs, legs, arms , buttocks & perineals.. Need min A to wipe his back, Pt brush his hairs & kenney with set up . Pt dress a shirt .. Pt work on arm-bike for 15 min. Pt asked to get check his blood sugar. Therapist contacted Charge Nurse to check his Blood sugar , which was found low. Nurse provided him , vannila & chocklate pudding & sprite immediately which helped patient . Therapy Code Descriptions/Definitions Functional [place] Measure: 0=Not Assessed/NA 4=Minimal Assistance 1=Total Assistance 5=Supervision or Setup 2=Maximal Assistance 6=Modified [place] 3=Moderate Assistance 7=Complete [place] Therapy Quality Codes: 6 Independent with activity with or without an assistive device 5 Patient requires set up or clean up by helper. Patient completes activity by themselves 4 Supervision or touching assist (CGA). [place] provide cues , steadying assist 3 The helper provides less than half the effort to complete the activity 2 The helper provides more than half the effort to complete the activity 1 Dependent. The helper does all the effort to complete an activity 7 Patient refused to complete or attempt activity 9 The patient did not perform the activity before the current illness or injury 88 Not attempted due to Medical conditions or safety concerns Eating (FIM): 7 Eating (QC): 6 Grooming (FIM): 6 Oral Hygiene (QC): 6 Bathing (FIM): 4 Bathing Location: L Arm, R Arm, L Upper Leg, R Upper Leg, L Lower Leg ( including foot), R Lower Leg (including foot), Chest, Abdomen, Buttocks, Perineal Area Shower/Bathe Self (QC): 4 Upper Body (FIM): 6 Upper Body Dressing (QC): 6 Lower Body Dressing (FIM): 5 Lower Body Dressing (QC): 5 On/Off Footwear (QC): 5 Toileting (FIM): 6 Toileting Hygiene (QC): 6 Transfers (B, C, W/C) (FIM): 5 Toilet/Commode Transfer (FIM): 5 Toilet Transfer (QC): 5 Education OT Patient Education: Correct positioning, Safety issues Teaching Recipient: Patient Teaching Methods: Demonstration Response to Teaching: Verbalize Understanding OT Short Term Goals Short Term Goals Time Frame: Dec 26, 2018 Toileting(FIM): 5 Transfers (B,C,W/C) (FIM): 5 Toilet/Commode Transfer(FIM): 5 Additional Short Term Goals: 1-Demonstrate ADL Tasks, 2-Verbalize Understanding , 3-ImproveStrength/Araceli 1=Demonstrate adherence to instructed precautions during ADL tasks. 2=Patient will verbalize/demonstrate understanding of assistive devices/ modifications for ADL. 3=Patient will improve strength/tolerance for activity to enable patient to perform ADL's. OT Electrician Sound Goals Intermediate Goals Time Frame: Jan 09, 2019 Eating (FIM): 6 Eating (QC): 6 Groomin Oral Hygiene (QC): 6 Bathing(FIM): 6 Shower/Bathe Self (QC): 6 Upper Body Dressing(FIM): 6 Upper Body Dressing (QC): 6 Lower Body Dressing(FIM): 6 Lower Body Dressing (QC): 6 On/Off Footwear (QC): 6 Toileting(FIM): 6 Toileting Hygiene (QC): 6 Toilet/Commode Transfer(FIM): 6 Toilet/Commode Transfer (QC): 6 Additional Goals: 1-Demonstrate ADL Tasks, 2-Verbalize Understanding, 3- ImproveStrength/Araceli 1=Demonstrate adherence to instructed precautions during ADL tasks. 2=Patient will verbalize/demonstrate understanding of assistive devices/ modifications for ADL. 3=Patient will improve strength/tolerance for activity to enable patient to perform ADL's. OT Education/Plan Problem List/Assessment Assessment: Decreased Activ Tolerance, Decreased Safety Aware, Decreased UE Strength, Impaired Funct Balance, Impaired Self-Care Skills Pt s/p left great toe amputation. Pt now has wound vac in place and is NWB left foot. Pt demonstrates decreased mobility, strength, ADL functioning, and activity tolerance. Pt to benefit from skilled OT intervention for ADL training , transfers, strengthening, and home safety education to increase functional independence and allow safe discharge plan. Discharge Recommendations Plan/Recommendations: Continue POC Therapy D/C Recommendations: Home Independently Equpiment Recommendations-D/C: Bath Chair, Extended Shower Sprayer, Bilingual Instructor Barriers to Progress Unsteady standing balance due to Left great Toe Amputation & weakness. Patient/Family Goals To return home Independently. Treatment Plan/Plan of Care Treatment,Training & Education: Yes Patient would benefit from OT for education, treatment and training to promote independence in ADL's, mobility, safety and/or upper extremity function for ADL' s. Plan of Care: ADL Retraining, Functional Mobility, Group Exercise/Act as Ind, UE Funct Exercise/Act Treatment Duration: Jan 09, 2019 Frequency: At least 5 of 7 days/Wk (IRF) Estimated Hrs Per Day: 1.5 hours per day Agreement: Yes Rehab Potential: Good Time/GCodes Start Time: 08:00 Stop Time: 13:30 Total Time Billed (hr/min): 90 Billed Treatment Time 1, ADL 60 , Ex 30 Total 90 min. AGUSTINA AKERS OT Dec 30, 2018 10:35
--- NOTE | 2018-12-30 10:50 | NUR ---
Pastoral care visit.
--- NOTE | 2018-12-30 10:59 | Physical Therapy Daily Note ---
PT Daily Note-Current Subjective Patient in bed pre tx, agrees to PT, no complaints of pain. Patient states he had low blood sugar earlier this morning but feels much better now. Appearance Patient sitting EOB post tx with nurse call, phone, tray, all needs met. Mental Status Patient Orientation: Person, Place, Situation wound vac Transfers Therapy Code Descriptions/Definitions Functional Home Measure: 0=Not Assessed/NA 4=Minimal Assistance 1=Total Assistance 5=Supervision or Setup 2=Maximal Assistance 6=Modified Home 3=Moderate Assistance 7=Complete Home Therapy Quality Codes: 6 Independent with activity with or without an assistive device 5 Patient requires set up or clean up by helper. Patient completes activity by themselves 4 Supervision or touching assist (CGA). [place] provide cues , steadying assist 3 The helper provides less than half the effort to complete the activity 2 The helper provides more than half the effort to complete the activity 1 Dependent. The helper does all the effort to complete an activity 7 Patient refused to complete or attempt activity 9 The patient did not perform the activity before the current illness or injury 88 Not attempted due to Medical conditions or safety concerns Transfers (B, C, W/C) (FIM): 6 Scootin Rollin Supine to/from Sit: 6 Sit to/from Stand: 6 Bed to/from Chair: 6 Weight Bearing Right Lower Extremity: Right Full Weight Bearing Left Lower Extremity: Left Non Weight Bearing Wound vac left great toe area Gait Training Gait (FIM): 5 Distance: 150'x2 Gait Level of Assist: 5 Gait Persons Needed: 1 Gait Assistive Device: FWW Patient only needs SBA because he needs somebody to carry his wound vac. Ambulation is slow but steady, he is able to maintain his weight bearing status. Exercises Supine Ex: Ankle pumps, Quad Set, Glut sets, Heel Slides, Short Arc Quads, Hip abd/add Supine Reps: 20 NuStep Minutes: 15 NuStep Workload: 4 Treatments bed mobility and transfers, ambulation, functional strengthening Assessment Current Status: Fair Progress improved ambulation PT Short Term Goals Short Term Goals Time Frame: Dec 26, 2018 Transfers (B,C,W/C) (FIM): 5 Gait (FIM): 2 Distance (FIM): 8=946-29 ft Gait Assistive Device: FWW Wheelchair Distance: 150' Stairs (FIM): 2 # of Steps: 1 PT Fci Goals Fci Goals PT Environmental Department Manager Goals Time Frame: Jan 06, 2019 Transfers (B,C,W/C) (FIM): 6 Sit to Lying (QC): 6 Lying-Sitting on Side/Bed(QC): 6 Sit to Stand (QC): 6 Rollin Roll Left to Right (QC): 6 Chair/[id number] Xfer(QC): 6 Car Transfer (QC): 6 Does the Patient Walk: Yes Gait (FIM): 6 Gait distance (FIM): 3=150 ft Walk 10 feet (QC): 6 Walk 10ft-Uneven Surface(QC): 6 Walk 50ft with 2 Turns (QC): 6 Walk 150 ft (QC): 6 Gait Assistive Device: FWW Does the Pt use WC or Scooter?: Yes Wheelchair (FIM): 6 Wheelchair distance (FIM): 3=150 ft Wheel 50 feet with 2 turns (QC: 6 Stairs (FIM): 5 # of Steps: 4 1 Step (curb) (QC): 6 4 Steps (QC): 6 12 Steps (QC): 88 Picking up an Object (QC): 88 PT Plan Problem List Problem List: Activity Tolerance, Functional Strength, Safety, Balance, Gait, Transfer Treatment/Plan Treatment Plan: Continue Plan of Care Treatment Plan: Bed Mobility, Education, Functional Activity Araceli, Functional Strength, Group Therapy, Gait, Safety, Therapeutic Exercise, Transfers Treatment Duration: Jan 06, 2019 Frequency: At least 5 of 7 days/Wk (IRF) Estimated Hrs Per Day: 1.5 hours per day Patient and/or Family Agrees t: Yes Safety Risks/Education Patient Education: Gait Training, Transfer Techniques, Correct Positioning, Safety Issues Teaching Recipient: Patient Teaching Methods: Demonstration, Discussion Response to Teaching: Reinforcement Needed Time/GCodes Time In: 1000 Time Out: 1100 Total Billed Treatment Time: 60 Total Billed Treatment 1 visit EX 30' GT 20' FA 10' VIKY MITCHELL PT Dec 30, 2018 10:59
[2018-12-30] MEDS: FENTANYL PATCH REMOVAL TP SCH (11:56)
[2018-12-30] MEDS: TERBINAFINE 250 MG (LamISIL) TABLET PO SCH (12:05)
[2018-12-30] MEDS: ENOXAPARIN 40 MG/0.4 ML (LOVENOX) SYR SC SCH (14:16)
--- NOTE | 2018-12-30 15:00 | Physical Therapy Daily Note ---
PT Daily Note-Current Subjective Patient in bed pre tx, agrees to PT, has no complaints of pain. Appearance Patient in bed post tx with nurse call, phone, tray, all needs met. Mental Status Patient Orientation: Person, Place, Situation wound vac Transfers Therapy Code Descriptions/Definitions Functional [place] Measure: 0=Not Assessed/NA 4=Minimal Assistance 1=Total Assistance 5=Supervision or Setup 2=Maximal Assistance 6=Modified [place] 3=Moderate Assistance 7=Complete [place] Therapy Quality Codes: 6 Independent with activity with or without an assistive device 5 Patient requires set up or clean up by helper. Patient completes activity by themselves 4 Supervision or touching assist (CGA). [place] provide cues , steadying assist 3 The helper provides less than half the effort to complete the activity 2 The helper provides more than half the effort to complete the activity 1 Dependent. The helper does all the effort to complete an activity 7 Patient refused to complete or attempt activity 9 The patient did not perform the activity before the current illness or injury 88 Not attempted due to Medical conditions or safety concerns Transfers (B, C, W/C) (FIM): 6 Scootin Rollin Supine to/from Sit: 6 Sit to/from Stand: 6 Bed to/from Chair: 6 Weight Bearing Right Lower Extremity: Right Full Weight Bearing Left Lower Extremity: Left Non Weight Bearing Wound vac left great toe area Gait Training Gait (FIM): 5 Distance: 150'x2 Gait Level of Assist: 5 Gait Persons Needed: 1 Gait Assistive Device: FWW Exercises Seated Therapy Exercises: Ankle pumps, Long arc quads, Hip flexion, Hip abd/add Seated Reps: 20 Treatments bed mobility and transfers, ambulation, functional strengthening Assessment Current Status: Fair Progress compliant with weight bearing status, no LOB PT Short Term Goals Short Term Goals Time Frame: Dec 26, 2018 Transfers (B,C,W/C) (FIM): 5 Gait (FIM): 2 Distance (FIM): 9=217-57 ft Gait Assistive Device: FWW Wheelchair Distance: 150' Stairs (FIM): 2 # of Steps: 1 PT Transportation Maintenance Specialist Goals Transportation Maintenance Specialist Goals PT Transportation Maintenance Specialist Goals Time Frame: Jan 06, 2019 Transfers (B,C,W/C) (FIM): 6 Sit to Lying (QC): 6 Lying-Sitting on Side/Bed(QC): 6 Sit to Stand (QC): 6 Rollin Roll Left to Right (QC): 6 Chair/[id number]-Vhwkm Xfer(QC): 6 Car Transfer (QC): 6 Does the Patient Walk: Yes Gait (FIM): 6 Gait distance (FIM): 3=150 ft Walk 10 feet (QC): 6 Walk 10ft-Uneven Surface(QC): 6 Walk 50ft with 2 Turns (QC): 6 Walk 150 ft (QC): 6 Gait Assistive Device: FWW Does the Pt use WC or Scooter?: Yes Wheelchair (FIM): 6 Wheelchair distance (FIM): 3=150 ft Wheel 50 feet with 2 turns (QC: 6 Stairs (FIM): 5 # of Steps: 4 1 Step (curb) (QC): 6 4 Steps (QC): 6 12 Steps (QC): 88 Picking up an Object (QC): 88 PT Plan Problem List Problem List: Activity Tolerance, Functional Strength, Safety, Balance, Gait, Transfer Treatment/Plan Treatment Plan: Continue Plan of Care Treatment Plan: Bed Mobility, Education, Functional Activity Araceli, Functional Strength, Group Therapy, Gait, Safety, Therapeutic Exercise, Transfers Treatment Duration: Jan 06, 2019 Frequency: At least 5 of 7 days/Wk (IRF) Estimated Hrs Per Day: 1.5 hours per day Patient and/or Family Agrees t: Yes Safety Risks/Education Patient Education: Gait Training, Transfer Techniques, Correct Positioning, Safety Issues Teaching Recipient: Patient Teaching Methods: Demonstration, Discussion Response to Teaching: Reinforcement Needed Time/GCodes Time In: 1400 Time Out: 1430 Total Billed Treatment Time: 30 Total Billed Treatment 1 visit GT 20' EX 10' VIKY MITCHELL PT Dec 30, 2018 15:00
--- NOTE | 2018-12-30 15:33 | NUR ---
Duragesic patch in place at Rt upper posterior scapula area, OpSite intact over patch.
[2018-12-30 17:59] VITALS: BP 114/66
[2018-12-31] MEDS: HYDROcodone/APAP 5 MG/325 MG (LORTAB) TAB PO PRN ×5 (00:31→23:02)
[2018-12-31 05:00] VITALS: BP 126/78
[2018-12-31] MEDS: inSUlin Protamine/ASPart 70/30 1 UNIT/0.01 ML DOSE SC SCH ×2 (06:25→17:36)
--- NOTE | 2018-12-31 09:07 | PM&R Progress Note ---
Subjective HPI/CC On Admission Date Seen by Provider: Dec 31, 2018 Time Seen by Provider: 08:30 CC: Left great toe amputation HPI: This is a 58-year-old white male clinic patient of [facility] with a past medical history of diabetes and 3 years ago a debilitating critical illness resulted in long course in inpatient rehab and even a feeding tube who presents to the inpatient rehab for amputation education and therapy after a left great toe amputation due to severe osteomyelitis and nonhealing wound. Patient has a wound VAC and pain is controlled. Hyperglycemia will be managed with increase insulin dose of his 70/30 insulin that he takes at home. Patient is malnourished and will be encouraged to take in adequate nutrition. He will be discharged home after recovery. Subjective/Events-last exam Sugar was 80 last evening Wound vac in place Contemplating going to [place] until wound is healed No increased pain Adjusted insulin down a bit in the evening Checked meds and labs Lamisil PO and cream helping the severe tinea cruris Review of Systems General: Fatigue Musculoskeletal: foot pain Tinea cruris Objective Exam Vital Signs Vital Signs Date Time Temp Pulse Resp B/P (MAP) Pulse Ox O2 Delivery O2 Flow Rate FiO2 12/31/18 05:00 97.7 68 18 126/78 (94) 98 Room Air Capillary Refill : General Appearance: No Apparent Distress, WD/WN, Chronically ill Respiratory: Chest Non Tender, Lungs Clear, Normal Breath Sounds, No Accessory Muscle Use, No Respiratory Distress Cardiovascular: Regular Rate, Rhythm, No Edema, No Gallop, No JVD, No Murmur, Normal Peripheral Pulses Extremity: Other (left great toe in wound vac at amputation site) Neurologic/Psychiatric: Alert, Oriented x3, No Motor/Sensory Deficits, Normal Mood/Affect Results/Procedures Lab Patient resulted labs reviewed. Assessment/Plan Assessment and Plan Assess & Plan/Chief Complaint Assessment: s/p Septic shock due to cellulitis and osteomyelitis of the left great toe s/p amputation s/p Hyperosmolar nonketotic state requiring insulin drip s/p Acute renal failure Long-standing debility dating back to 2014 when reviewed inpatient rehab course History of bilateral pneumonia with respiratory failure requiring intubation at [facility] 3 years ago DM on insulin with periodic hypoglycemia Malnourished Tinea cruris Plan: Rehab for wound vac and amputation training Insulin dose decreased due to hypoglycemia Lovenox for DVT prophylaxis Lamisil cream along with 3 dose of Lamisil PO Decrease insulin in evening Diagnosis/Problems Diagnosis/Problems (1) Amputation toe Status: Acute (2) Diabetes mellitus with insulin therapy Status: Chronic (3) HHNC (hyperglycemic hyperosmolar nonketotic coma) Status: Resolved Resolution Date/Time: 12/16/18 @ 06:41 (4) Malnourished Status: Acute Qualifiers: Malnutrition type: unspecified type Qualified Codes: E46 - Unspecified protein-calorie malnutrition (5) COPD (chronic obstructive pulmonary disease) Status: Chronic Qualifiers: COPD type: unspecified COPD Qualified Codes: J44.9 - Chronic obstructive pulmonary disease, unspecified (6) Hypoglycemia Status: Acute (7) Encounter for management of wound VAC Status: Acute (8) Tinea cruris Status: Acute Clinical Quality Measures DVT/VTE Risk/Contraindication: Risk Factor Score Per Nursin RFS Level Per Nursing on Admit: 4+=Very High ZACKERY PETERS DO Dec 31, 2018 09:06
[2018-12-31] MEDS: MAGNESIUM OXIDE (MAG-OX)400 MG TAB PO SCH ×2 (09:15→17:37)
[2018-12-31] MEDS: TERBINAFINE 250 MG (LamISIL) TABLET PO SCH (09:16)
[2018-12-31] MEDS: FENTANYL PATCH REMOVAL TP SCH (09:16)
[2018-12-31] MEDS: TERBINAFINE 1% CREAM 1 OZ (LamISIL) TUBE TP SCH ×2 (09:16→20:39)
[2018-12-31] MEDS: fentaNYL PATCH 25 MCG (DURAGESIC) TD SCH (09:16)
--- NOTE | 2018-12-31 10:56 | Physical Therapy Daily Note ---
PT Daily Note-Current Subjective Patient in bed pre tx, agrees to PT, no complaints of pain at rest. Appearance Patient sitting EOB post tx with nurse call, phone, tray, all needs met. Patient wants to have nurse aide check his blood sugar, nurse aide notified. Mental Status Patient Orientation: Person, Place, Situation wound vac Transfers Therapy Code Descriptions/Definitions Functional [place] Measure: 0=Not Assessed/NA 4=Minimal Assistance 1=Total Assistance 5=Supervision or Setup 2=Maximal Assistance 6=Modified [place] 3=Moderate Assistance 7=Complete [place] Therapy Quality Codes: 6 Independent with activity with or without an assistive device 5 Patient requires set up or clean up by helper. Patient completes activity by themselves 4 Supervision or touching assist (CGA). [place] provide cues , steadying assist 3 The helper provides less than half the effort to complete the activity 2 The helper provides more than half the effort to complete the activity 1 Dependent. The helper does all the effort to complete an activity 7 Patient refused to complete or attempt activity 9 The patient did not perform the activity before the current illness or injury 88 Not attempted due to Medical conditions or safety concerns Transfers (B, C, W/C) (FIM): 6 Scootin Rollin Supine to/from Sit: 6 Sit to/from Stand: 6 Bed to/from Chair: 6 Weight Bearing Right Lower Extremity: Right Full Weight Bearing Left Lower Extremity: Left Non Weight Bearing Wound vac left great toe area Gait Training Gait (FIM): 5 Distance: 150'x2 Gait Level of Assist: 5 Gait Persons Needed: 1 Gait Assistive Device: FWW steady ambulation, no LOB, able to maintain his weight bearing status on the left leg Exercises Supine Ex: Ankle pumps, Quad Set, Glut sets, Heel Slides, Short Arc Quads, Straight leg raise, Hip abd/add Supine Reps: 20 NuStep Minutes: 15 NuStep Workload: 5 Treatments bed mobility and transfers, ambulation, functional strengthening Assessment Current Status: Fair Progress improving general mobility and strength PT Short Term Goals Short Term Goals Time Frame: Dec 26, 2018 Transfers (B,C,W/C) (FIM): 5 Gait (FIM): 2 Distance (FIM): 5=612-71 ft Gait Assistive Device: FWW Wheelchair Distance: 150' Stairs (FIM): 2 # of Steps: 1 PT Live In Housekeeper Goals Live In Housekeeper Goals PT Live In Housekeeper Goals Time Frame: Jan 06, 2019 Transfers (B,C,W/C) (FIM): 6 Sit to Lying (QC): 6 Lying-Sitting on Side/Bed(QC): 6 Sit to Stand (QC): 6 Rollin Roll Left to Right (QC): 6 Chair/Aks-ar-Ptivr Xfer(QC): 6 Car Transfer (QC): 6 Does the Patient Walk: Yes Gait (FIM): 6 Gait distance (FIM): 3=150 ft Walk 10 feet (QC): 6 Walk 10ft-Uneven Surface(QC): 6 Walk 50ft with 2 Turns (QC): 6 Walk 150 ft (QC): 6 Gait Assistive Device: FWW Does the Pt use WC or Scooter?: Yes Wheelchair (FIM): 6 Wheelchair distance (FIM): 3=150 ft Wheel 50 feet with 2 turns (QC: 6 Stairs (FIM): 5 # of Steps: 4 1 Step (curb) (QC): 6 4 Steps (QC): 6 12 Steps (QC): 88 Picking up an Object (QC): 88 PT Plan Problem List Problem List: Activity Tolerance, Functional Strength, Safety, Balance, Gait, Transfer Treatment/Plan Treatment Plan: Continue Plan of Care Treatment Plan: Bed Mobility, Education, Functional Activity Araceli, Functional Strength, Group Therapy, Gait, Safety, Therapeutic Exercise, Transfers Treatment Duration: Jan 06, 2019 Frequency: At least 5 of 7 days/Wk (IRF) Estimated Hrs Per Day: 1.5 hours per day Patient and/or Family Agrees t: Yes Safety Risks/Education Patient Education: Gait Training, Transfer Techniques, Correct Positioning, Safety Issues Teaching Recipient: Patient Teaching Methods: Demonstration, Discussion Response to Teaching: Reinforcement Needed Time/GCodes Time In: 1000 Time Out: 1100 Total Billed Treatment Time: 60 Total Billed Treatment 1 visit EX 35' GT 25' VIKY MITCHELL PT Dec 31, 2018 10:56
--- NOTE | 2018-12-31 13:11 | Occupational Ther Daily Note ---
OT Current Status-Daily Note Subjective Pt states that, " I want to go to toilet, please bring a w/c soon ." Pain Numeric Pain Scale: 5-Moderate Pain Location: Left Location Body Site: Foot Pain Description: Ache, Throbbing Mental Status/Objective Patient Orientation: Person, Place, Time Therapy Code Descriptions/Definitions Functional [place] Measure: 0=Not Assessed/NA 4=Minimal Assistance 1=Total Assistance 5=Supervision or Setup 2=Maximal Assistance 6=Modified [place] 3=Moderate Assistance 7=Complete [place] Attachments: Drains ADL-Treatment Pt participated in shower activity, dressing, grooming, func transfers, thera ex BUE. Pt need SBA in shower/bath , Independent in UB dresssing & LB dressing. 15 min on arm bike to strengthen BUE . Therapy Code Descriptions/Definitions Functional [place] Measure: 0=Not Assessed/NA 4=Minimal Assistance 1=Total Assistance 5=Supervision or Setup 2=Maximal Assistance 6=Modified [place] 3=Moderate Assistance 7=Complete [place] Therapy Quality Codes: 6 Independent with activity with or without an assistive device 5 Patient requires set up or clean up by helper. Patient completes activity by themselves 4 Supervision or touching assist (CGA). [place] provide cues , steadying assist 3 The helper provides less than half the effort to complete the activity 2 The helper provides more than half the effort to complete the activity 1 Dependent. The helper does all the effort to complete an activity 7 Patient refused to complete or attempt activity 9 The patient did not perform the activity before the current illness or injury 88 Not attempted due to Medical conditions or safety concerns Eating (FIM): 7 Eating (QC): 6 Grooming (FIM): 7 Oral Hygiene (QC): 6 Bathing (FIM): 5 Shower/Bathe Self (QC): 5 Upper Body (FIM): 7 Upper Body Dressing (QC): 7 Lower Body Dressing (FIM): 6 Lower Body Dressing (QC): 6 On/Off Footwear (QC): 6 Toileting (FIM): 7 Toileting Hygiene (QC): 7 Transfers (B, C, W/C) (FIM): 7 Toilet/Commode Transfer (FIM): 7 Toilet Transfer (QC): 6 Tub Transfer(FIM): 7 Shower Transfer(FIM): 7 Education OT Patient Education: Correct positioning, Safety issues Teaching Recipient: Patient Teaching Methods: Demonstration, Discussion Response to Teaching: Verbalize Understanding, Return Demonstration OT Short Term Goals Short Term Goals Time Frame: Dec 26, 2018 Toileting(FIM): 5 Transfers (B,C,W/C) (FIM): 5 Toilet/Commode Transfer(FIM): 5 Additional Short Term Goals: 1-Demonstrate ADL Tasks, 2-Verbalize Understanding , 3-ImproveStrength/Araceli 1=Demonstrate adherence to instructed precautions during ADL tasks. 2=Patient will verbalize/demonstrate understanding of assistive devices/ modifications for ADL. 3=Patient will improve strength/tolerance for activity to enable patient to perform ADL's. OT Fci Goals Fci Goals Time Frame: Jan 09, 2019 Eating (FIM): 6 Eating (QC): 6 Groomin Oral Hygiene (QC): 6 Bathing(FIM): 6 Shower/Bathe Self (QC): 6 Upper Body Dressing(FIM): 6 Upper Body Dressing (QC): 6 Lower Body Dressing(FIM): 6 Lower Body Dressing (QC): 6 On/Off Footwear (QC): 6 Toileting(FIM): 6 Toileting Hygiene (QC): 6 Toilet/Commode Transfer(FIM): 6 Toilet/Commode Transfer (QC): 6 Additional Goals: 1-Demonstrate ADL Tasks, 2-Verbalize Understanding, 3- ImproveStrength/Araceli 1=Demonstrate adherence to instructed precautions during ADL tasks. 2=Patient will verbalize/demonstrate understanding of assistive devices/ modifications for ADL. 3=Patient will improve strength/tolerance for activity to enable patient to perform ADL's. OT Education/Plan Problem List/Assessment Assessment: Decreased Activ Tolerance, Decreased Safety Aware, Decreased UE Strength, Impaired Funct Balance, Impaired Self-Care Skills Pt s/p left great toe amputation. Pt now has wound vac in place and is NWB left foot. Pt demonstrates decreased mobility, strength, ADL functioning, and activity tolerance. Pt to benefit from skilled OT intervention for ADL training , transfers, strengthening, and home safety education to increase functional independence and allow safe discharge plan. Discharge Recommendations Plan/Recommendations: Continue POC Therapy D/C Recommendations: Home Independently, Residential (TCU/NH) Equpiment Recommendations-D/C: Bath Chair, Extended Shower Sprayer, Remote Operations Producer Barriers to Progress left Great Toe Amputation . Patient/Family Goals To return home ( Motor-Home ) Independently. Treatment Plan/Plan of Care Treatment,Training & Education: Yes Patient would benefit from OT for education, treatment and training to promote independence in ADL's, mobility, safety and/or upper extremity function for ADL' s. Plan of Care: ADL Retraining, Functional Mobility, Group Exercise/Act as Ind, UE Funct Exercise/Act Treatment Duration: Jan 09, 2019 Frequency: At least 5 of 7 days/Wk (IRF) Estimated Hrs Per Day: 1.5 hours per day Agreement: Yes Rehab Potential: Good Time/GCodes Start Time: 11:00 Stop Time: 13:30 Total Time Billed (hr/min): 90 ([id number] & 1300- 1330 Total 90 min.) Billed Treatment Time 1, ADLs 60, Ex 30 total 90 min. AGUSTINA AKERS OT Dec 31, 2018 13:11
[2018-12-31] MEDS: ENOXAPARIN 40 MG/0.4 ML (LOVENOX) SYR SC SCH (14:13)
--- NOTE | 2018-12-31 14:41 | Physical Therapy Daily Note ---
PT Daily Note-Current Subjective Pt. agrees to Rx. c/o pain in left foot at "19"..."9.5/10". Pt. expresses he does not like wearing a gait belt . This MOTORCYCLE DESIGNER explained that his history of blood sugar drops as well as his current pain level and NWBing status warrant a gait belt in my opinion. Pain Numeric Pain Scale: 10-Worst Possible Pain Location: Left Location Body Site: Foot Pain Description: Stabbing Appearance unkempt , head down, poor posture, very thin Mental Status Patient Orientation: Normal For Age Attachments: Other-See Comments (wound vacc left foot/great toe) Transfers Therapy Code Descriptions/Definitions Functional [place] Measure: 0=Not Assessed/NA 4=Minimal Assistance 1=Total Assistance 5=Supervision or Setup 2=Maximal Assistance 6=Modified [place] 3=Moderate Assistance 7=Complete [place] Therapy Quality Codes: 6 Independent with activity with or without an assistive device 5 Patient requires set up or clean up by helper. Patient completes activity by themselves 4 Supervision or touching assist (CGA). [place] provide cues , steadying assist 3 The helper provides less than half the effort to complete the activity 2 The helper provides more than half the effort to complete the activity 1 Dependent. The helper does all the effort to complete an activity 7 Patient refused to complete or attempt activity 9 The patient did not perform the activity before the current illness or injury 88 Not attempted due to Medical conditions or safety concerns all TRFs SBA . Weight Bearing Right Lower Extremity: Right Full Weight Bearing Left Lower Extremity: Left Non Weight Bearing Wound vac left great toe area Gait Training Gait Assistive Device: FWW 150 ft x 2 CGA and assist to carry Wound vacc, no LOB, stopped a couple times with slightly large step up in to FWW Exercises NuStep Minutes: 8 NuStep Workload: 5 Treatments pt. donned own sock and shoe Assessment Current Status: Good Progress better control and balance since last Rx with this MOTORCYCLE DESIGNER PT Short Term Goals Short Term Goals Time Frame: Dec 26, 2018 Transfers (B,C,W/C) (FIM): 5 Gait (FIM): 2 Distance (FIM): 5=141-67 ft Gait Assistive Device: FWW Wheelchair Distance: 150' Stairs (FIM): 2 # of Steps: 1 PT Research Home Economist Goals Research Home Economist Goals PT Research Home Economist Goals Time Frame: Jan 06, 2019 Transfers (B,C,W/C) (FIM): 6 Sit to Lying (QC): 6 Lying-Sitting on Side/Bed(QC): 6 Sit to Stand (QC): 6 Rollin Roll Left to Right (QC): 6 Chair/Ttb-fs-Kaime Xfer(QC): 6 Car Transfer (QC): 6 Does the Patient Walk: Yes Gait (FIM): 6 Gait distance (FIM): 3=150 ft Walk 10 feet (QC): 6 Walk 10ft-Uneven Surface(QC): 6 Walk 50ft with 2 Turns (QC): 6 Walk 150 ft (QC): 6 Gait Assistive Device: FWW Does the Pt use WC or Scooter?: Yes Wheelchair (FIM): 6 Wheelchair distance (FIM): 3=150 ft Wheel 50 feet with 2 turns (QC: 6 Stairs (FIM): 5 # of Steps: 4 1 Step (curb) (QC): 6 4 Steps (QC): 6 12 Steps (QC): 88 Picking up an Object (QC): 88 PT Plan Treatment/Plan Treatment Plan: Continue Plan of Care Treatment Plan: Bed Mobility, Education, Functional Activity Araceli, Functional Strength, Group Therapy, Gait, Safety, Therapeutic Exercise, Transfers Treatment Duration: Jan 06, 2019 Frequency: At least 5 of 7 days/Wk (IRF) Estimated Hrs Per Day: 1.5 hours per day Patient and/or Family Agrees t: Yes Safety Risks/Education Patient Education: Gait Training, Transfer Techniques, Disease Process, Safety Issues Teaching Recipient: Patient Teaching Methods: Demonstration, Discussion Response to Teaching: Verbalize Understanding, Return Demonstration, Reinforcement Needed Time/GCodes Time In: 1405 Time Out: 1435 Total Billed Treatment Time: 30 Total Billed Treatment 1,GT17m,EX13m G Codes Necessary: JAIME Burleson MOTORCYCLE DESIGNER Dec 31, 2018 14:41
--- NOTE | 2018-12-31 15:03 | Progress Note ---
Subjective Date Seen by a Provider: Dec 31, 2018 Time Seen by a Provider: 07:52 Subjective/Events-last exam Patient no new complaints. Wound vac to left foot. Denies any n/v fever sweats chills shortness of breath or chest pain. Objective Exam Vital Signs Date Time Temp Pulse Resp B/P (MAP) Pulse Ox O2 Delivery O2 Flow Rate FiO2 12/31/18 09:00 Room Air 12/31/18 05:00 97.7 68 18 126/78 (94) 98 Room Air 12/30/18 20:38 Room Air 12/30/18 17:59 97.7 66 18 114/66 (82) 98 Room Air I & O 12/31/18 06:59 Intake Total 1630 ml Output Total 2600 ml Balance -970 ml Capillary Refill : General Appearance: No Apparent Distress, WD/WN, Chronically ill HEENT: PERRL/EOMI, Normal ENT Inspection Neck: Normal Inspection, Non Tender, Supple Respiratory: Chest Non Tender, No Accessory Muscle Use, No Respiratory Distress Cardiovascular: Regular Rate, Rhythm Gastrointestinal: non tender, soft Extremity: Other (left foot wound healing in, no signs of infection) Neurologic/Psychiatric: Alert, Oriented x3, No Motor/Sensory Deficits, Normal Mood/Affect Skin: Other (tinea cruris) Lymphatic: No Adenopathy Results Lab Laboratory Tests 12/30/18 16:24: Glucometer 132H 12/30/18 20:33: Glucometer 80 12/31/18 04:29: Glucometer 151H 12/31/18 10:51: Glucometer 119H Assessment/Plan Assessment/Plan Assessment/Plan status post left great toe amputation with wound VAC placement. Wound care nurse to continue with wound VAC changes. Diagnosis/Problems Diagnosis/Problems (1) Amputation toe Status: Acute (2) Diabetes mellitus with insulin therapy Status: Chronic (3) HHNC (hyperglycemic hyperosmolar nonketotic coma) Status: Resolved Resolution Date/Time: 12/16/18 @ 06:41 (4) Malnourished Status: Acute Qualifiers: Qualified Codes: E46 - Unspecified protein-calorie malnutrition (5) COPD (chronic obstructive pulmonary disease) Status: Chronic Qualifiers: Qualified Codes: J44.9 - Chronic obstructive pulmonary disease, unspecified (6) Hypoglycemia Status: Acute (7) Encounter for management of wound VAC Status: Acute (8) Tinea cruris Status: Acute Clinical Quality Measures DVT/VTE Risk/Contraindication: Risk Factor Score Per Nursin RFS Level Per Nursing on Admit: 4+=Very High HUGO ARROYO DO Dec 31, 2018 15:03
--- NOTE | 2018-12-31 15:50 | NUR ---
Weekly team conference Discussed weekly team conference with patient. Tentative dc set for 01/02/19; however, patient is now considering SNF placement while wound VAC is in place. Betsy Cooley LCSW is working on discharge plans with Barbara Sebastian.
[2018-12-31 18:00] VITALS: BP 121/68
[2019-01-01] MEDS: HYDROcodone/APAP 5 MG/325 MG (LORTAB) TAB PO PRN ×5 (03:09→22:26)
[2019-01-01 05:03] VITALS: BP 128/77
[2019-01-01] MEDS: inSUlin Protamine/ASPart 70/30 1 UNIT/0.01 ML DOSE SC SCH ×2 (06:21→16:56)
[2019-01-01] MEDS: TERBINAFINE 250 MG (LamISIL) TABLET PO SCH (08:00)
[2019-01-01] MEDS: MAGNESIUM OXIDE (MAG-OX)400 MG TAB PO SCH ×2 (08:00→16:55)
[2019-01-01] MEDS: TERBINAFINE 1% CREAM 1 OZ (LamISIL) TUBE TP SCH ×2 (08:01→21:53)
[2019-01-01] MEDS: FENTANYL PATCH REMOVAL TP SCH (08:01)
--- NOTE | 2019-01-01 08:46 | PM&R Progress Note ---
Subjective HPI/CC On Admission Date Seen by Provider: Jan 01, 2019 Time Seen by Provider: 09:00 CC: Left great toe amputation HPI: This is a 58-year-old white male clinic patient of [facility] with a past medical history of diabetes and 3 years ago a debilitating critical illness resulted in long course in inpatient rehab and even a feeding tube who presents to the inpatient rehab for amputation education and therapy after a left great toe amputation due to severe osteomyelitis and nonhealing wound. Patient has a wound VAC and pain is controlled. Hyperglycemia will be managed with increase insulin dose of his 70/30 insulin that he takes at home. Patient is malnourished and will be encouraged to take in adequate nutrition. He will be discharged home after recovery. Subjective/Events-last exam Patient doing well Discharge is planned for tomorrow Labs were reviewed today and all within normal limits Blood sugar much improved Denies any increased pain Review of Systems Tinea cruris Objective Exam Vital Signs Vital Signs Date Time Temp Pulse Resp B/P (MAP) Pulse Ox O2 Delivery O2 Flow Rate FiO2 01/01/19 09:00 Room Air 01/01/19 05:03 98.5 63 18 128/77 (94) 98 Capillary Refill : General Appearance: No Apparent Distress, WD/WN, Chronically ill HEENT: PERRL/EOMI, Normal ENT Inspection Neck: Normal Inspection, Non Tender, Supple Respiratory: Chest Non Tender, No Accessory Muscle Use, No Respiratory Distress Cardiovascular: Regular Rate, Rhythm Gastrointestinal: Normal Bowel Sounds, No Organomegaly, No Pulsatile Mass, Non Tender, Soft Back: Normal Inspection, No CVA Tenderness, No Vertebral Tenderness Extremity: Other (left foot wound healing in, no signs of infection) Neurologic/Psychiatric: Alert, Oriented x3, No Motor/Sensory Deficits, Normal Mood/Affect Skin: Other (tinea cruris) Lymphatic: No Adenopathy Results/Procedures Lab Laboratory Tests 01/01/19 09:12 Patient resulted labs reviewed. Assessment/Plan Assessment and Plan Assess & Plan/Chief Complaint Assessment: s/p Septic shock due to cellulitis and osteomyelitis of the left great toe s/p amputation s/p Hyperosmolar nonketotic state requiring insulin drip s/p Acute renal failure Long-standing debility dating back to 2014 when reviewed inpatient rehab course History of bilateral pneumonia with respiratory failure requiring intubation at [facility] 3 years ago DM on insulin with periodic hypoglycemia Malnourished Tinea cruris Plan: Rehab for wound vac and amputation training Insulin dose decreased due to hypoglycemia Lovenox for DVT prophylaxis Lamisil cream along with 3 dose of Lamisil PO Decrease insulin in evening discharge tomorrow on wound VAC (1) Amputation toe (2) Diabetes mellitus with insulin therapy (3) HHNC (hyperglycemic hyperosmolar nonketotic coma) Resolution Date/Time: 12/16/18 @ 06:41 (4) Malnourished (5) COPD (chronic obstructive pulmonary disease) (6) Hypoglycemia (7) Encounter for management of wound VAC (8) Tinea cruris Clinical Quality Measures DVT/VTE Risk/Contraindication: Risk Factor Score Per Nursin RFS Level Per Nursing on Admit: 4+=Very High ZACKERY PETERS DO Jan 01, 2019 08:46
[2019-01-01 09:24] LABS: BASOPHILS % (AUTO) 0 % (0-10); EOSINOPHILS # (AUTO) 0.3 10^3/uL (0.0-0.3); EOSINOPHILS % (AUTO) 4 % (0-10); HEMATOCRIT 38 % (40-54); HEMOGLOBIN 11.7 G/DL (13.3-17.7); LYMPHOCYTES # (AUTO) 2.5 X 10^3 (1.0-4.0); LYMPHOCYTES % (AUTO) 36 % (12-44); MEAN CORPUSCULAR HEMOGLOBIN 27 PG (25-34); MEAN CORPUSCULAR HGB CONC 31 G/DL (32-36); MEAN CORPUSCULAR VOLUME 88 FL (80-99); MEAN PLATELET VOLUME 9.8 FL (7.4-10.4); MONOCYTES # (AUTO) 0.5 X 10^3 (0.0-1.0); MONOCYTES % (AUTO) 7 % (0-12); NEUTROPHILS # (AUTO) 3.6 X 10^3 (1.8-7.8); NEUTROPHILS % (AUTO) 53 % (42-75); PLATELET COUNT 279 10^3/uL (130-400); RED CELL DISTRIBUTION WIDTH 14.6 % (10.0-14.5); WHITE BLOOD COUNT 6.8 10^3/uL (4.3-11.0)
[2019-01-01 09:41] LABS: ALANINE AMINOTRANSFERASE 12 U/L (0-55); ALBUMIN 3.4 GM/DL (3.2-4.5); ALKALINE PHOSPHATASE 97 U/L (40-136); BILIRUBIN,TOTAL 0.2 MG/DL (0.1-1.0); BUN/CREATININE RATIO 27; CALCIUM 9.4 MG/DL (8.5-10.1); CARBON DIOXIDE 26 MMOL/L (21-32); CHLORIDE 103 MMOL/L (98-107); CREATININE SERUM 1.05 MG/DL (0.60-1.30); GFR ESTIMATED > 60; GLUCOSE 96 MG/DL (70-105); POTASSIUM 4.5 MMOL/L (3.6-5.0); SODIUM 136 MMOL/L (135-145); TOTAL PROTEIN 7.5 GM/DL (6.4-8.2)
--- NOTE | 2019-01-01 11:02 | Physical Therapy Daily Note ---
PT Daily Note-Current Subjective Patient in bed pre tx, agrees to PT, no complaints of pain. Appearance Patient sitting EOB post tx with nurse call, phone, tray, all needs met. Mental Status Patient Orientation: Person, Place, Situation, Normal For Age wound vac Transfers Therapy Code Descriptions/Definitions Functional [place] Measure: 0=Not Assessed/NA 4=Minimal Assistance 1=Total Assistance 5=Supervision or Setup 2=Maximal Assistance 6=Modified [place] 3=Moderate Assistance 7=Complete [place] Therapy Quality Codes: 6 Independent with activity with or without an assistive device 5 Patient requires set up or clean up by helper. Patient completes activity by themselves 4 Supervision or touching assist (CGA). [place] provide cues , steadying assist 3 The helper provides less than half the effort to complete the activity 2 The helper provides more than half the effort to complete the activity 1 Dependent. The helper does all the effort to complete an activity 7 Patient refused to complete or attempt activity 9 The patient did not perform the activity before the current illness or injury 88 Not attempted due to Medical conditions or safety concerns Transfers (B, C, W/C) (FIM): 6 Scootin Rollin Roll Left to Right (QC): 6 Supine to/from Sit: 6 Sit to/from Stand: 6 Sit to Lying (QC): 6 Sit to Stand (QC): 6 Chair/Phl-tk-Ifkop Xfer(QC): 6 Bed to/from Chair: 6 Car Transfer (QC): 6 Patient performs bed mobility and transfers with mod I, car transfer mod I. Weight Bearing Right Lower Extremity: Right Full Weight Bearing Left Lower Extremity: Left Non Weight Bearing Wound vac left great toe area Gait Training Gait (FIM): 5 Distance: 150'x2 Walk 10 feet (QC): 4 Walk 50 ft with 2 Turns(QC): 4 Walk 150 ft (QC): 4 Walking 10ft/uneven surface-QC: 4 Gait Level of Assist: 5 Gait Persons Needed: 1 Gait Assistive Device: FWW Patient can ambulate 150' with a rolling walker with SBA (including 50' with at least 2 turns of 90 degrees and 10' over an uneven surface). Patient has steady ambulation, good foot clearance on the right side, complaint with his weight bearing status on the left foot. Wheelchair Training Does the Pt Use a Wheelchair?: No Stair Training Stair Training: Handrails/: 2 handrails Stairs (FIM): 2 #of Steps: 4 1 Step (curb) (QC): 4 4 Steps (QC): 4 Stairs: Pattern: Hops Level of Assist: 4 Patient can go up and down 4 steps using 2 handrails with CGA. Exercises LAQ alternating for 5 min NuStep Minutes: 15 NuStep Workload: 5 Treatments bed mobility and transfers, ambulation, stair training, functional strengthening Assessment Current Status: Fair Progress good overall progress with functional mobility, patient is only SBA with ambulation because somebody has to carry his wound vac PT Short Term Goals Short Term Goals Time Frame: Dec 26, 2018 Transfers (B,C,W/C) (FIM): 5 Gait (FIM): 2 Distance (FIM): 3=238-27 ft Gait Assistive Device: FWW Wheelchair Distance: 150' Stairs (FIM): 2 # of Steps: 1 PT Fpc Goals Fpc Goals PT Survey Superintendent Goals Time Frame: Jan 06, 2019 Transfers (B,C,W/C) (FIM): 6 Sit to Lying (QC): 6 Lying-Sitting on Side/Bed(QC): 6 Sit to Stand (QC): 6 Rollin Roll Left to Right (QC): 6 Chair/Dhg-oe-Onoit Xfer(QC): 6 Car Transfer (QC): 6 Does the Patient Walk: Yes Gait (FIM): 6 Gait distance (FIM): 3=150 ft Walk 10 feet (QC): 6 Walk 10ft-Uneven Surface(QC): 6 Walk 50ft with 2 Turns (QC): 6 Walk 150 ft (QC): 6 Gait Assistive Device: FWW Does the Pt use WC or Scooter?: Yes Wheelchair (FIM): 6 Wheelchair distance (FIM): 3=150 ft Wheel 50 feet with 2 turns (QC: 6 Stairs (FIM): 5 # of Steps: 4 1 Step (curb) (QC): 6 4 Steps (QC): 6 12 Steps (QC): 88 Picking up an Object (QC): 88 PT Plan Problem List Problem List: Activity Tolerance, Functional Strength, Safety, Balance, Gait, Transfer Treatment/Plan Treatment Plan: Continue Plan of Care Treatment Plan: Bed Mobility, Education, Functional Activity Araceli, Functional Strength, Group Therapy, Gait, Safety, Therapeutic Exercise, Transfers Treatment Duration: Jan 06, 2019 Frequency: At least 5 of 7 days/Wk (IRF) Estimated Hrs Per Day: 1.5 hours per day Patient and/or Family Agrees t: Yes Safety Risks/Education Patient Education: Gait Training, Transfer Techniques, Steps, Correct Positioning, Safety Issues Teaching Recipient: Patient Teaching Methods: Demonstration, Discussion Response to Teaching: Reinforcement Needed Time/GCodes Time In: 1000 Time Out: 1100 Total Billed Treatment Time: 60 Total Billed Treatment 1 visit GT 30' EX 20' FA 10' VIKY MITCHELL PT Jan 01, 2019 11:02
--- NOTE | 2019-01-01 11:08 | Occupational Ther Daily Note ---
OT Current Status-Daily Note Subjective Pt in bed . Agree for OT & shower. Pt stated , " I am ready for shower." Pain Numeric Pain Scale: 5-Moderate Pain Location: Left Location Body Site: Foot Pain Description: Ache, Sharp Mental Status/Objective Patient Orientation: Person, Place, Time, Situation Therapy Code Descriptions/Definitions Functional [place] Measure: 0=Not Assessed/NA 4=Minimal Assistance 1=Total Assistance 5=Supervision or Setup 2=Maximal Assistance 6=Modified [place] 3=Moderate Assistance 7=Complete [place] Attachments: Drains ADL-Treatment Pt participated in shower, dressing, grooming, func bed mobility, toileting, func transfers & strengthening ex to BUE. Pt has undress LB & UB garments, unhook wound-vac tube & later hooked wound-vac tube , shampoo hairs, put body soap on wash rags & soaped & washed/ rinse UB, LB, abdomen, back & front, chest , buttocks, perineals , face & hairs Independently . [place] teeth Independently. Dry all body parts with dry towels , applied moisturizer on all body parts & genital ,scrotum. [place] hairs, Dresses nancy pant with gallez & shirt Independently. Pt transfer Independently from w/c to bed. Performed 30 reps x 2 sets x 3 lb wts with BUE , 30 reps x 2 sets x red theraband with BUE in all planes of action to strengthen BUE . Pt met all goals & thus plan to d/c from skilled OT Services to home with AD & wound-Vac.. Therapy Code Descriptions/Definitions Functional [place] Measure: 0=Not Assessed/NA 4=Minimal Assistance 1=Total Assistance 5=Supervision or Setup 2=Maximal Assistance 6=Modified [place] 3=Moderate Assistance 7=Complete [place] Therapy Quality Codes: 6 Independent with activity with or without an assistive device 5 Patient requires set up or clean up by helper. Patient completes activity by themselves 4 Supervision or touching assist (CGA). [place] provide cues , steadying assist 3 The helper provides less than half the effort to complete the activity 2 The helper provides more than half the effort to complete the activity 1 Dependent. The helper does all the effort to complete an activity 7 Patient refused to complete or attempt activity 9 The patient did not perform the activity before the current illness or injury 88 Not attempted due to Medical conditions or safety concerns Eating (FIM): 7 Eating (QC): 6 Grooming (FIM): 7 Oral Hygiene (QC): 6 Bathing (FIM): 7 Bathing Location: L Arm, R Arm, L Upper Leg, R Upper Leg, L Lower Leg ( including foot), R Lower Leg (including foot), Chest, Abdomen, Buttocks, Perineal Area Shower/Bathe Self (QC): 6 Upper Body (FIM): 7 Upper Body Dressing (QC): 6 Lower Body Dressing (FIM): 7 Lower Body Dressing (QC): 6 On/Off Footwear (QC): 6 Toileting (FIM): 7 Toileting Hygiene (QC): 6 Transfers (B, C, W/C) (FIM): 6 (with FWW) Toilet/Commode Transfer (FIM): 6 (with FWW) Toilet Transfer (QC): 6 (With FWW) Tub Transfer(FIM): 6 (with FWW) Shower Transfer(FIM): 6 (with FWW) Education OT Patient Education: Correct positioning, Modified ADL techniques, Safety issues Teaching Recipient: Patient Teaching Methods: Demonstration, Discussion Response to Teaching: Verbalize Understanding, Return Demonstration OT Short Term Goals Short Term Goals Time Frame: Dec 26, 2018 Toileting(FIM): 5 Transfers (B,C,W/C) (FIM): 5 Toilet/Commode Transfer(FIM): 5 Additional Short Term Goals: 1-Demonstrate ADL Tasks, 2-Verbalize Understanding , 3-ImproveStrength/Araceli 1=Demonstrate adherence to instructed precautions during ADL tasks. 2=Patient will verbalize/demonstrate understanding of assistive devices/ modifications for ADL. 3=Patient will improve strength/tolerance for activity to enable patient to perform ADL's. OT Residential Goals Residential Goals Time Frame: Jan 09, 2019 Eating (FIM): 6 (7) Eating (QC): 6 (6) Groomin (7) Oral Hygiene (QC): 6 (7) Bathing(FIM): 6 (7) Bathing Location: L Arm, R Arm, L Upper Leg, R Upper Leg, L Lower Leg ( including foot), R Lower Leg (including foot), Chest, Abdomen, Buttocks, Perineal Area Shower/Bathe Self (QC): 6 (6) Upper Body Dressing(FIM): 6 (7) Upper Body Dressing (QC): 6 (6) Lower Body Dressing(FIM): 6 (7) Lower Body Dressing (QC): 6 (6) On/Off Footwear (QC): 6 (6) Toileting(FIM): 6 (7) Toileting Hygiene (QC): 6 (6) Transfers (B,C,W/C) (FIM): 7 (7) Toilet/Commode Transfer(FIM): 6 (7) Toilet/Commode Transfer (QC): 6 (6) Tub Transfer(FIM): 6 (7) Shower Transfer(FIM): 6 (6 with FWW) Additional Goals: 1-Demonstrate ADL Tasks, 2-Verbalize Understanding, 3- ImproveStrength/[place]ac[place] 1=Demonstrate adherence to instructed precautions during ADL tasks. 2=Patient will verbalize/demonstrate understanding of assistive devices/ modifications for ADL. 3=Patient will improve strength/tolerance for activity to enable patient to perform ADL's. OT Education/Plan Problem List/Assessment Assessment: No Skilled OT Needs ID'd Pt s/p left great toe amputation. Pt now has wound vac in place and is NWB left foot. Pt demonstrates decreased mobility, strength, ADL functioning, and activity tolerance. Pt to benefit from skilled OT intervention for ADL training , transfers, strengthening, and home safety education to increase functional independence and allow safe discharge plan. Discharge Recommendations Plan/Recommendations: Discharge/Goals Met Therapy D/C Recommendations: [facility] (TCU/NH) Equpiment Recommendations-D/C: Bath Chair, Extended Shower Sprayer, Gold Nib Grinder Patient/Family Goals To return Motor-Home Independently with AD. Treatment Plan/Plan of Care Treatment,Training & Education: Yes Patient would benefit from OT for education, treatment and training to promote independence in ADL's, mobility, safety and/or upper extremity function for ADL' s. Plan of Care: ADL Retraining, Functional Mobility, Group Exercise/Act as Ind, UE Funct Exercise/Act Treatment Duration: Jan 09, 2019 Frequency: At least 5 of 7 days/Wk (IRF) Estimated Hrs Per Day: 1.5 hours per day Agreement: Yes Rehab Potential: Good Time/GCodes Start Time: 08:00 Stop Time: 09:30 Total Time Billed (hr/min): 90 Billed Treatment Time 1, ADLs 75 min , Ex 15 min. Total 90 min. AGUSTINA AKERS OT Jan 01, 2019 11:08
--- NOTE | 2019-01-01 14:28 | Physical Therapy Daily Note ---
PT Daily Note-Current Subjective "I haven't had a very good day." Did not further expound on this. Pain Numeric Pain Scale: 8 Location: Left Location Body Site: Toe (amputation site) Pain Description: Throbbing Comment: Took pain meds at start of treatment Mental Status Patient Orientation: Person, Place, Time, Situation Transfers Therapy Code Descriptions/Definitions Functional [place] Measure: 0=Not Assessed/NA 4=Minimal Assistance 1=Total Assistance 5=Supervision or Setup 2=Maximal Assistance 6=Modified [place] 3=Moderate Assistance 7=Complete [place] Therapy Quality Codes: 6 Independent with activity with or without an assistive device 5 Patient requires set up or clean up by helper. Patient completes activity by themselves 4 Supervision or touching assist (CGA). [place] provide cues , steadying assist 3 The helper provides less than half the effort to complete the activity 2 The helper provides more than half the effort to complete the activity 1 Dependent. The helper does all the effort to complete an activity 7 Patient refused to complete or attempt activity 9 The patient did not perform the activity before the current illness or injury 88 Not attempted due to Medical conditions or safety concerns Pt is mod indep with all functional transfers. Weight Bearing Right Lower Extremity: Right Full Weight Bearing Left Lower Extremity: Left Non Weight Bearing Wound vac left great toe area Gait Training Gait (FIM): 7 Distance (FIM): 3=150 ft Distance: 150 ft x 3 reps Gait Assistive Device: FWW NWB left LE Assessment Current Status: Good Progress Safe and steady with functional mobility. PT Short Term Goals Short Term Goals Time Frame: Dec 26, 2018 Transfers (B,C,W/C) (FIM): 5 Gait (FIM): 2 Distance (FIM): 8=929-68 ft Gait Assistive Device: FWW Wheelchair Distance: 150' Stairs (FIM): 2 # of Steps: 1 PT Retirement Goals Timber Framer Goals PT Retirement Goals Time Frame: Jan 06, 2019 Transfers (B,C,W/C) (FIM): 6 Sit to Lying (QC): 6 Lying-Sitting on Side/Bed(QC): 6 Sit to Stand (QC): 6 Rollin Roll Left to Right (QC): 6 Chair/Vie-ts-Xbfpo Xfer(QC): 6 Car Transfer (QC): 6 Does the Patient Walk: Yes Gait (FIM): 6 Gait distance (FIM): 3=150 ft Walk 10 feet (QC): 6 Walk 10ft-Uneven Surface(QC): 6 Walk 50ft with 2 Turns (QC): 6 Walk 150 ft (QC): 6 Gait Assistive Device: FWW Does the Pt use WC or Scooter?: Yes Wheelchair (FIM): 6 Wheelchair distance (FIM): 3=150 ft Wheel 50 feet with 2 turns (QC: 6 Stairs (FIM): 5 # of Steps: 4 1 Step (curb) (QC): 6 4 Steps (QC): 6 12 Steps (QC): 88 Picking up an Object (QC): 88 PT Plan Problem List Problem List: Activity Tolerance, Functional Strength, Safety Treatment/Plan Treatment Plan: Continue Plan of Care (discharge is planned for tomorrow. ) Treatment Plan: Bed Mobility, Education, Functional Activity Araceli, Functional Strength, Group Therapy, Gait, Safety, Therapeutic Exercise, Transfers Treatment Duration: Jan 06, 2019 Frequency: At least 5 of 7 days/Wk (IRF) Estimated Hrs Per Day: 1.5 hours per day Patient and/or Family Agrees t: Yes Safety Risks/Education Patient Education: Safety Issues Teaching Recipient: Patient Teaching Methods: Discussion Response to Teaching: Return Demonstration Time/GCodes Time In: 1345 Time Out: 1415 Total Billed Treatment Time: 30 Total Billed Treatment visit GT 30 JENNA HOGUE PT Jan 01, 2019 14:28
[2019-01-01] MEDS: ENOXAPARIN 40 MG/0.4 ML (LOVENOX) SYR SC SCH (15:11)
--- NOTE | 2019-01-01 16:00 | NUR ---
Met with pt with the assistance of MICHAEL Winn, Director of Rehab Unit to discuss continued care planning. As a result of multiple discussions, pt admits really doesn't have a safe place to discharge. He has requested a pass to obtain his vehicle and explore possible living options. He is most agreeable to short-term rehab at a skilled facility where he could continue to receive wound care and physical and occupational therapies.Admission packets have been sent to [facility] and [facility] at [place], [place]
[2019-01-01 18:00] VITALS: BP 122/77
[2019-01-02] MEDS: HYDROcodone/APAP 5 MG/325 MG (LORTAB) TAB PO PRN ×3 (03:57→10:10)
[2019-01-02 05:06] VITALS: BP 119/68
[2019-01-02] MEDS: inSUlin Protamine/ASPart 70/30 1 UNIT/0.01 ML DOSE SC SCH (06:29)
[2019-01-02] MEDS: MAGNESIUM OXIDE (MAG-OX)400 MG TAB PO SCH (08:35)
[2019-01-02] MEDS: TERBINAFINE 250 MG (LamISIL) TABLET PO SCH (08:36)
[2019-01-02] MEDS: TERBINAFINE 1% CREAM 1 OZ (LamISIL) TUBE TP SCH (08:37)
[2019-01-02] MEDS ORDERED: FENT1PAT8 TD (08:58)
[2019-01-02] MEDS ORDERED: ACHD5005 PO (08:58)
[2019-01-02] MEDS ORDERED: TERB30CR TP (08:58)
[2019-01-02] MEDS ORDERED: DOCU100C37 PO (08:58)
[2019-01-02] MEDS ORDERED: RELABEL FOR HOME USE MC SCH (09:00)
--- NOTE | 2019-01-02 09:01 | Discharge Summary ---
Diagnosis/Chief Complaint Date of Admission Dec 19, 2018 at 10:05 Date of Discharge Discharge Date: Jan 02, 2019 Discharge Diagnosis Assessment: s/p Septic shock due to cellulitis and osteomyelitis of the left great toe s/p amputation s/p Hyperosmolar nonketotic state requiring insulin drip s/p Acute renal failure Long-standing debility dating back to 2014 when reviewed inpatient rehab course History of bilateral pneumonia with respiratory failure requiring intubation at [facility] 3 years ago DM on insulin with periodic hypoglycemia Malnourished Tinea cruris Plan: Rehab for wound vac and amputation training Insulin dose decreased due to hypoglycemia Lovenox for DVT prophylaxis Lamisil cream along with 3 dose of Lamisil PO Decrease insulin in evening discharge tomorrow on wound VAC Discharge Summary Discharge Physical Examination Allergies: Coded Allergies: No Known Drug Allergies (Unverified , 05/08/15) Vitals & I&Os Vital Signs Date Time Temp Pulse Resp B/P (MAP) Pulse Ox O2 Delivery O2 Flow Rate FiO2 01/02/19 13:15 65 18 120/62 97 Room Air 01/02/19 05:06 99.0 Hospital Course Was the Problem List Reviewed?: Yes Hospital course: Patient had a lengthy hospital course after he was admitted from acute care and stayed 14 days in the inpatient rehab unit. Dr. Garvey monitor the left great toe amputation and wound VAC was placed and closely monitored. Blood sugars were monitored along with insulin management. Overall he participated in all therapies and pain was controlled on fentanyl patch and hydrocodone as needed. Bowels remain normal. Lamisil cream and pill was given for severe tinea cruris with good results at time of discharge. Overall patient had some questionable living conditions including living in his truck at discharge so he was agreeable at the very last to go to [facility] to complete his wound VAC treatment and return back to his living quarters as he felt most comfortable. Labs (last 24 hrs) Laboratory Tests 12/19/18 11:14: Glucometer 201H 12/19/18 15:59: Glucometer 209H 12/19/18 20:42: Glucometer 266H 12/20/18 06:24: Glucometer 164H 12/20/18 07:32: White Blood Count 7.3, Red Blood Count 4.08L, Hemoglobin 11.4L, Hematocrit 36L, Mean Corpuscular Volume 88, Mean Corpuscular Hemoglobin 28, Mean Corpuscular Hemoglobin Concent 32, Red Cell Distribution Width 13.8, Platelet Count 280, Mean Platelet Volume 10.1, Sodium Level 132L, Potassium Level 4.2, Chloride Level 101, Carbon Dioxide Level 23, Anion Gap 8, Blood Urea Nitrogen 20H, Creatinine 0.99, Estimat Glomerular Filtration Rate > 60, BUN/Creatinine Ratio 20, Glucose Level 282H, Calcium Level 8.8, Corrected Calcium 9.8, Total Bilirubin 0.1, Aspartate Amino Transf (AST/SGOT) 26, Alanine Aminotransferase ( ALT/SGPT) 11, Alkaline Phosphatase 96, Total Protein 6.7, Albumin 2.7L 12/20/18 11:09: Glucometer 253H 12/20/18 16:28: Glucometer 231H 12/20/18 20:32: Glucometer 198H 12/21/18 05:30: White Blood Count 7.9, Red Blood Count 4.02L, Hemoglobin 11.3L, Hematocrit 36L, Mean Corpuscular Volume 88, Mean Corpuscular Hemoglobin 28, Mean Corpuscular Hemoglobin Concent 32, Red Cell Distribution Width 14.2, Platelet Count 299, Mean Platelet Volume 9.7, Neutrophils (%) (Auto) 56, Lymphocytes (%) (Auto) 35, Monocytes (%) (Auto) 6, Eosinophils (%) (Auto) 2, Basophils (%) (Auto) 0, Neutrophils # (Auto) 4.4, Lymphocytes # (Auto) 2.8, Monocytes # (Auto) 0.5, Eosinophils # (Auto) 0.2, Basophils # (Auto) 0.0, Sodium Level 136, Potassium Level 4.3, Chloride Level 101, Carbon Dioxide Level 25, Anion Gap 10, Blood Urea Nitrogen 21H, Creatinine 0.86, Estimat Glomerular Filtration Rate > 60, BUN /Creatinine Ratio 24, Glucose Level 198H, Glucometer 186H, Calcium Level 8.8, Corrected Calcium 9.8, Magnesium Level 1.4L, Total Bilirubin 0.1, Aspartate Amino Transf (AST/SGOT) 23, Alanine Aminotransferase (ALT/SGPT) 12, Alkaline Phosphatase 87, Total Protein 6.5, Albumin 2.8L 12/21/18 11:33: Glucometer 173H 12/21/18 16:17: Glucometer 209H 12/21/18 20:30: Glucometer 58*L 12/21/18 20:48: Glucometer 61L 12/21/18 21:30: Glucometer 137H 12/22/18 04:27: Glucometer 228H 12/22/18 05:56: Glucometer 218H 12/22/18 10:00: Glucometer 76 12/22/18 10:58: Glucometer 113H 12/22/18 16:12: Glucometer 224H 12/22/18 20:21: Glucometer 193H 12/23/18 05:16: Glucometer 196H 12/23/18 09:24: Glucometer 104 12/23/18 11:00: Glucometer 78 12/23/18 16:45: Glucometer 292H 12/23/18 20:53: Glucometer 98 12/23/18 23:00: Glucometer 136H 12/24/18 05:20: Glucometer 134H 12/24/18 09:17: Glucometer 123H 12/24/18 11:15: Glucometer 76 12/24/18 16:23: Glucometer 90 12/24/18 21:09: Glucometer 81 12/25/18 05:37: Glucometer 104 12/25/18 10:00: Glucometer 86 12/25/18 11:03: Glucometer 84 12/25/18 16:45: Glucometer 139H 12/25/18 19:06: Glucometer 119H 12/25/18 20:52: Glucometer 103 12/26/18 06:13: Glucometer 191H 12/26/18 08:54: Glucometer 46*L 12/26/18 09:27: Glucometer 92 12/26/18 11:00: Glucometer 87 12/26/18 16:24: Glucometer 200H 12/26/18 21:03: Glucometer 131H 12/26/18 22:57: Glucometer 128H 12/27/18 05:36: Glucometer 144H 12/27/18 09:49: Glucometer 122H 12/27/18 10:54: Glucometer 203H 12/27/18 16:03: Glucometer 333H 12/27/18 20:16: Glucometer 115H 12/28/18 05:43: Glucometer 162H 12/28/18 11:00: Glucometer 280H 12/28/18 15:44: Glucometer 308H 12/28/18 20:15: Glucometer 100 12/29/18 05:53: Glucometer 123H 12/29/18 11:24: Glucometer 109 12/29/18 16:32: Glucometer 59*L 12/29/18 21:14: Glucometer 121H 12/30/18 06:21: Glucometer 94 12/30/18 08:49: Glucometer 46*L 12/30/18 09:31: Glucometer 97 12/30/18 12:04: Glucometer 196H 12/30/18 16:24: Glucometer 132H 12/30/18 20:33: Glucometer 80 12/31/18 04:29: Glucometer 151H 12/31/18 10:51: Glucometer 119H 12/31/18 17:05: Glucometer 231H 12/31/18 20:36: Glucometer 150H 01/01/19 04:36: Glucometer 161H 01/01/19 09:12: White Blood Count 6.8, Red Blood Count 4.34L, Hemoglobin 11.7L, Hematocrit 38L, Mean Corpuscular Volume 88, Mean Corpuscular Hemoglobin 27, Mean Corpuscular Hemoglobin Concent 31L, Red Cell Distribution Width 14.6H, Platelet Count 279, Mean Platelet Volume 9.8, Neutrophils (%) (Auto) 53, Lymphocytes (%) (Auto) 36, Monocytes (%) (Auto) 7, Eosinophils (%) (Auto) 4, Basophils (%) (Auto) 0, Neutrophils # (Auto) 3.6, Lymphocytes # (Auto) 2.5, Monocytes # (Auto) 0.5, Eosinophils # (Auto) 0.3, Basophils # (Auto) 0.0, Sodium Level 136, Potassium Level 4.5, Chloride Level 103, Carbon Dioxide Level 26, Anion Gap 7, Blood Urea Nitrogen 28H, Creatinine 1.05, Estimat Glomerular Filtration Rate > 60, BUN/ Creatinine Ratio 27, Glucose Level 96, Calcium Level 9.4, Corrected Calcium 9.9 , Total Bilirubin 0.2, Aspartate Amino Transf (AST/SGOT) 18, Alanine Aminotransferase (ALT/SGPT) 12, Alkaline Phosphatase 97, Total Protein 7.5, Albumin 3.4 01/01/19 09:34: Glucometer 85 01/01/19 10:59: Glucometer 64L 01/01/19 16:40: Glucometer 366H 01/01/19 21:59: Glucometer 94 01/02/19 04:23: Glucometer 135H 01/02/19 12:11: Glucometer 129H Pending Labs Laboratory Tests 12/19/18 11:14: Glucometer 201 12/19/18 15:59: Glucometer 209 12/19/18 20:42: Glucometer 266 12/20/18 06:24: Glucometer 164 12/20/18 07:32: White Blood Count 7.3, Red Blood Count 4.08, Hemoglobin 11.4, Hematocrit 36, Mean Corpuscular Volume 88, Mean Corpuscular Hemoglobin 28, Mean Corpuscular Hemoglobin Concent 32, Red Cell Distribution Width 13.8, Platelet Count 280, Mean Platelet Volume 10.1, Sodium Level 132, Potassium Level 4.2, Chloride Level 101, Carbon Dioxide Level 23, Anion Gap 8, Blood Urea Nitrogen 20, Creatinine 0.99, Estimat Glomerular Filtration Rate > 60, BUN/Creatinine Ratio 20, Glucose Level 282, Calcium Level 8.8, Corrected Calcium 9.8, Total Bilirubin 0.1, Aspartate Amino Transf (AST/SGOT) 26, Alanine Aminotransferase ( ALT/SGPT) 11, Alkaline Phosphatase 96, Total Protein 6.7, Albumin 2.7 12/20/18 11:09: Glucometer 253 12/20/18 16:28: Glucometer 231 12/20/18 20:32: Glucometer 198 12/21/18 05:30: White Blood Count 7.9, Red Blood Count 4.02, Hemoglobin 11.3, Hematocrit 36, Mean Corpuscular Volume 88, Mean Corpuscular Hemoglobin 28, Mean Corpuscular Hemoglobin Concent 32, Red Cell Distribution Width 14.2, Platelet Count 299, Mean Platelet Volume 9.7, Neutrophils (%) (Auto) 56, Lymphocytes (%) (Auto) 35, Monocytes (%) (Auto) 6, Eosinophils (%) (Auto) 2, Basophils (%) (Auto) 0, Neutrophils # (Auto) 4.4, Lymphocytes # (Auto) 2.8, Monocytes # (Auto) 0.5, Eosinophils # (Auto) 0.2, Basophils # (Auto) 0.0, Sodium Level 136, Potassium Level 4.3, Chloride Level 101, Carbon Dioxide Level 25, Anion Gap 10, Blood Urea Nitrogen 21, Creatinine 0.86, Estimat Glomerular Filtration Rate > 60, BUN/ Creatinine Ratio 24, Glucose Level 198, Glucometer 186, Calcium Level 8.8, Corrected Calcium 9.8, Magnesium Level 1.4, Total Bilirubin 0.1, Aspartate Amino Transf (AST/SGOT) 23, Alanine Aminotransferase (ALT/SGPT) 12, Alkaline Phosphatase 87, Total Protein 6.5, Albumin 2.8 12/21/18 11:33: Glucometer 173 12/21/18 16:17: Glucometer 209 12/21/18 20:30: Glucometer 58 12/21/18 20:48: Glucometer 61 12/21/18 21:30: Glucometer 137 12/22/18 04:27: Glucometer 228 12/22/18 05:56: Glucometer 218 12/22/18 10:00: Glucometer 76 12/22/18 10:58: Glucometer 113 12/22/18 16:12: Glucometer 224 12/22/18 20:21: Glucometer 193 12/23/18 05:16: Glucometer 196 12/23/18 09:24: Glucometer 104 12/23/18 11:00: Glucometer 78 12/23/18 16:45: Glucometer 292 12/23/18 20:53: Glucometer 98 12/23/18 23:00: Glucometer 136 12/24/18 05:20: Glucometer 134 12/24/18 09:17: Glucometer 123 12/24/18 11:15: Glucometer 76 12/24/18 16:23: Glucometer 90 12/24/18 21:09: Glucometer 81 12/25/18 05:37: Glucometer 104 12/25/18 10:00: Glucometer 86 12/25/18 11:03: Glucometer 84 12/25/18 16:45: Glucometer 139 12/25/18 19:06: Glucometer 119 12/25/18 20:52: Glucometer 103 12/26/18 06:13: Glucometer 191 12/26/18 08:54: Glucometer 46 12/26/18 09:27: Glucometer 92 12/26/18 11:00: Glucometer 87 12/26/18 16:24: Glucometer 200 12/26/18 21:03: Glucometer 131 12/26/18 22:57: Glucometer 128 12/27/18 05:36: Glucometer 144 12/27/18 09:49: Glucometer 122 12/27/18 10:54: Glucometer 203 12/27/18 16:03: Glucometer 333 12/27/18 20:16: Glucometer 115 12/28/18 05:43: Glucometer 162 12/28/18 11:00: Glucometer 280 12/28/18 15:44: Glucometer 308 12/28/18 20:15: Glucometer 100 12/29/18 05:53: Glucometer 123 12/29/18 11:24: Glucometer 109 12/29/18 16:32: Glucometer 59 12/29/18 21:14: Glucometer 121 12/30/18 06:21: Glucometer 94 12/30/18 08:49: Glucometer 46 12/30/18 09:31: Glucometer 97 12/30/18 12:04: Glucometer 196 12/30/18 16:24: Glucometer 132 12/30/18 20:33: Glucometer 80 12/31/18 04:29: Glucometer 151 12/31/18 10:51: Glucometer 119 12/31/18 17:05: Glucometer 231 12/31/18 20:36: Glucometer 150 01/01/19 04:36: Glucometer 161 01/01/19 09:12: White Blood Count 6.8, Red Blood Count 4.34, Hemoglobin 11.7, Hematocrit 38, Mean Corpuscular Volume 88, Mean Corpuscular Hemoglobin 27, Mean Corpuscular Hemoglobin Concent 31, Red Cell Distribution Width 14.6, Platelet Count 279, Mean Platelet Volume 9.8, Neutrophils (%) (Auto) 53, Lymphocytes (%) (Auto) 36, Monocytes (%) (Auto) 7, Eosinophils (%) (Auto) 4, Basophils (%) (Auto) 0, Neutrophils # (Auto) 3.6, Lymphocytes # (Auto) 2.5, Monocytes # (Auto) 0.5, Eosinophils # (Auto) 0.3, Basophils # (Auto) 0.0, Sodium Level 136, Potassium Level 4.5, Chloride Level 103, Carbon Dioxide Level 26, Anion Gap 7, Blood Urea Nitrogen 28, Creatinine 1.05, Estimat Glomerular Filtration Rate > 60, BUN/ Creatinine Ratio 27, Glucose Level 96, Calcium Level 9.4, Corrected Calcium 9.9 , Total Bilirubin 0.2, Aspartate Amino Transf (AST/SGOT) 18, Alanine Aminotransferase (ALT/SGPT) 12, Alkaline Phosphatase 97, Total Protein 7.5, Albumin 3.4 01/01/19 09:34: Glucometer 85 01/01/19 10:59: Glucometer 64 01/01/19 16:40: Glucometer 366 01/01/19 21:59: Glucometer 94 01/02/19 04:23: Glucometer 135 01/02/19 12:11: Glucometer 129 Discharge Home Medications: Active Scripts Active Lamisil At (Terbinafine HCl) 30 Gm Cream..g. 0 Gm TP BID 7 Days Docusate Sodium 100 Mg Capsule 100 Mg PO BID PRN Hydrocodone/Acetaminophen 5/325mg Tablet (Acetaminophen/Hydrocodone Bitart) 1 Tab Tab 1 Tab PO Q4H PRN Fentanyl Patch 25 MCG (Fentanyl) 1 Each Patch.td72 25 Mcg TD Q72H Reported Novolog Mix 70-30 Vial (Insuln Asp Prt/Insulin Aspart) 1 Unit/0.01 Ml Susp 20 Unit SQ BID WITH MEALS Instructions to patient/family Please see electronic discharge instructions given to patient. Diagnosis/Problems Diagnosis/Problems (1) Amputation toe Status: Acute Qualifiers: Qualified Codes: S98.132A - Complete traumatic amputation of one left lesser toe, initial encounter (2) Diabetes mellitus with insulin therapy Status: Chronic (3) HHNC (hyperglycemic hyperosmolar nonketotic coma) Status: Resolved Resolution Date/Time: 12/16/18 @ 06:41 (4) Malnourished Status: Acute Qualifiers: Qualified Codes: E46 - Unspecified protein-calorie malnutrition (5) COPD (chronic obstructive pulmonary disease) Status: Chronic Qualifiers: Qualified Codes: J44.9 - Chronic obstructive pulmonary disease, unspecified (6) Hypoglycemia Status: Acute (7) Encounter for management of wound VAC Status: Acute (8) Tinea cruris Status: Acute Clinical Quality Measures DVT/VTE Risk/Contraindication: Risk Factor Score Per Nursin RFS Level Per Nursing on Admit: 4+=Very High ZACKERY PETERS DO Jan 02, 2019 09:01
[2019-01-02] MEDS: FENTANYL PATCH REMOVAL TP SCH (09:57)
--- NOTE | 2019-01-02 10:19 | Therapy Team Discharge Summary ---
Therapy Discharge Summary Discharge Recommendations Date of Discharge Therapy D/C Recommendations: Home Independently, Intermediate (TCU/NH) Occupational Therapy No Skilled OT Needs ID'd PT Skilled Nursing Goals Business Development Sales Executive Goals PT Skilled Nursing Goals Time Frame: Jan 06, 2019 Transfers (B,C,W/C) (FIM): 6 Roll Left to Right (QC): 6 Sit to Lying (QC): 6 Lying-Sitting on Side/Bed(QC): 6 Sit to Stand (QC): 6 Chair/Kjx-ki-Zjgsj Xfer(QC): 6 Car Transfer (QC): 6 Does the Patient Walk: Yes Gait (FIM): 6 Gait distance (FIM): 3=150 ft Walk 10 feet (QC): 6 Walk 10ft-Uneven Surface(QC): 6 Walk 50ft with 2 Turns (QC): 6 Walk 150 ft (QC): 6 Gait Assistive Device: FWW Does the Pt use WC or Scooter?: Yes Wheelchair (FIM): 6 Wheelchair distance (FIM): 3=150 ft Wheel 50 feet with 2 turns (QC: 6 Stairs (FIM): 5 # of Steps: 4 1 Step (curb) (QC): 6 4 Steps (QC): 6 12 Steps (QC): 88 Picking up an Object (QC): 88 OT Business Development Sales Executive Goals Business Development Sales Executive Goals Time Frame: Jan 09, 2019 Eating (FIM): 6 (7 met) Eating (QC): 6 (6 met) Oral Hygiene (QC): 6 (6 met) Grooming(FIM): 6 (7 met) Bathing(FIM): 6 (7 met) Bathing Location: L Arm, R Arm, L Upper Leg, R Upper Leg, L Lower Leg ( including foot), R Lower Leg (including foot), Chest, Abdomen, Buttocks, Perineal Area Shower/Bathe Self (QC): 6 (6 met) Upper Body Dressing(FIM): 6 (7 met) Upper Body Dressing (QC): 6 (6 met) Lower Body Dressing(FIM): 6 (7 met) Lower Body Dressing (QC): 6 (6 met) On/Off Footwear (QC): 6 (6 met) Toileting(FIM): 6 (7 met) Toileting Hygiene (QC): 6 (6 met) Transfers (B,C,W/C) (FIM): 7 (7 met) Toilet/Commode Transfer(FIM): 6 (7 met) Toilet/Commode Transfer (QC): 6 ( 6 met) Tub Transfer(FIM): 6 (7 met) Shower Transfer(FIM): 6 (7 with FWW) Pt met all goals & thus d/c from skilled OT Services to Motor Home with AD & Wound- Vac. Additional Goals: 1-Demonstrate ADL Tasks, 2-Verbalize Understanding, 3- ImproveStrength/Araceli 1=Demonstrate adherence to instructed precautions during ADL tasks. 2=Patient will verbalize/demonstrate understanding of assistive devices/ modifications for ADL. 3=Patient will improve strength/tolerance for activity to enable patient to perform ADL's. AGUSTINA AKERS OT Jan 02, 2019 10:19
--- NOTE | 2019-01-02 11:09 | Discharge Inst-Skilled Nursing ---
Discharge Inst-Skilled NF Patient Instructions Patient Problems: Left great toe amputation DM Goal: Return to independent living Consult/Follow Up/Orders Follow Up Appt.: NH appointed PCP Skilled NF Admit to: Via [facility] [place] Certification ([facility]) I certify that SNF services are required to be given on an inpatient basis because of the above named patient's need for detention care on a continuing basis for the conditions(s) for which he/she was receiving inpatient hospital services prior to his/her transfer to the SNF. Fdc Facility Order: Nursing Services, Crop Farm Helper-Evaluate & Treat, Physical Therapy-Evaluate & Treat Discharge Diet: ADA Diet Daily Activity as Tolerated: Yes New & Resume Previous Orders Nat Chappell Jan 02, 2019 11:08 NAT CHAPPELL DO Jan 02, 2019 11:09
--- NOTE | 2019-01-02 13:10 | Therapy Team Discharge Summary ---
Therapy Discharge Summary Discharge Recommendations Date of Discharge Therapy D/C Recommendations: Home Independently, Usp (TCU/NH) Physical Therapy Patient came to rehab with osteomyelitis left great toe/post amputation. Upon evaluation patient performed bed mobility with min/CGA, sit <-> stand with mod assist, transfers with CGA, car transfer CGA, ambulated 10' with a rolling walker with [place], and propelled a manual wheelchair 150' with min assist. Patient has been performing bed mobility and transfer training, balance and endurance training, functional strengthening, stair training, gait training, and education. Patient has made good progress but has not met his ambulation or stairs skilled nursing goals. Now, patient performs bed mobility and transfers with mod I, car transfer mod I, ambulates 150' with a rolling walker with SBA ( including 50' with at least 2 turns of 90 degrees and 10' over an uneven surface ), and can go up and down 4 steps using 2 handrails with CGA. Patient has discharged from this facility and will be discharged from PT at this time. Occupational Therapy No Skilled OT Needs ID'd PT Snf Goals Agriculture Engineer Goals PT Agriculture Engineer Goals Time Frame: Jan 06, 2019 Transfers (B,C,W/C) (FIM): 6 Roll Left to Right (QC): 6 Sit to Lying (QC): 6 Lying-Sitting on Side/Bed(QC): 6 Sit to Stand (QC): 6 Chair/Qvr-vn-Nvvea Xfer(QC): 6 Car Transfer (QC): 6 Does the Patient Walk: Yes Gait (FIM): 6 Gait distance (FIM): 3=150 ft Walk 10 feet (QC): 6 Walk 10ft-Uneven Surface(QC): 6 Walk 50ft with 2 Turns (QC): 6 Walk 150 ft (QC): 6 Gait Assistive Device: FWW Does the Pt use WC or Scooter?: Yes Wheelchair (FIM): 6 Wheelchair distance (FIM): 3=150 ft Wheel 50 feet with 2 turns (QC: 6 Stairs (FIM): 5 # of Steps: 4 1 Step (curb) (QC): 6 4 Steps (QC): 6 12 Steps (QC): 88 Picking up an Object (QC): 88 OT Snf Goals Agriculture Engineer Goals Time Frame: Jan 09, 2019 Eating (FIM): 6 (7 met) Eating (QC): 6 (6 met) Oral Hygiene (QC): 6 (6 met) Grooming(FIM): 6 (7 met) Bathing(FIM): 6 (7 met) Bathing Location: L Arm, R Arm, L Upper Leg, R Upper Leg, L Lower Leg ( including foot), R Lower Leg (including foot), Chest, Abdomen, Buttocks, Perineal Area Shower/Bathe Self (QC): 6 (6 met) Upper Body Dressing(FIM): 6 (7 met) Upper Body Dressing (QC): 6 (6 met) Lower Body Dressing(FIM): 6 (7 met) Lower Body Dressing (QC): 6 (6 met) On/Off Footwear (QC): 6 (6 met) Toileting(FIM): 6 (7 met) Toileting Hygiene (QC): 6 (6 met) Transfers (B,C,W/C) (FIM): 7 (7 met) Toilet/Commode Transfer(FIM): 6 (7 met) Toilet/Commode Transfer (QC): 6 ( 6 met) Tub Transfer(FIM): 6 (7 met) Shower Transfer(FIM): 6 (7 with FWW) Pt met all goals & thus d/c from skilled OT Services to [facility] Home with AD & Wound- Vac. Additional Goals: 1-Demonstrate ADL Tasks, 2-Verbalize Understanding, 3- ImproveStrength/Araceli 1=Demonstrate adherence to instructed precautions during ADL tasks. 2=Patient will verbalize/demonstrate understanding of assistive devices/ modifications for ADL. 3=Patient will improve strength/tolerance for activity to enable patient to perform ADL's. VIKY MITCHELL PT Jan 02, 2019 13:10
[2019-01-02 13:15] VITALS: BP 120/62
--- NOTE | 2019-01-02 14:54 | NUR ---
Arrangements completed for pt's discharge to the Skilled Unit at [facility] late afternoon or early evening. Pt was discharged to obtain personal belongings and complete required personal business. Skilled discharge orders and two pain scripts were given to the Jigsaw Operator,CLAUDIA Mary. to obtain when he presents for admission.
== END 2019-01-02 13:15 | DRG 464 ==
PROVIDERS: ADMIT Internal Medicine; ATTEND Internal Medicine
PROC: 0JBR0ZZ Excision of Left Foot Subcutaneous Tissue and Fascia, Open Approach (ICD-10-PCS; principal; 2018-12-24)
DX: Z47.81 Encounter for orthopedic aftercare following surgical amputation (principal); Z89.412 Acquired absence of left great toe; E11.65 Type 2 diabetes mellitus with hyperglycemia; E46 Unspecified protein-calorie malnutrition; E11.40 Type 2 diabetes mellitus with diabetic neuropathy, unspecified; F17.200 Nicotine dependence, unspecified, uncomplicated; J44.9 Chronic obstructive pulmonary disease, unspecified; I10 Essential (primary) hypertension; Z79.4 Long term (current) use of insulin; B35.6 Tinea cruris
CPT/HCPCS: 36415; 80053; 82962; 83735; 85025; 85027; 90471; 94640

== ENCOUNTER → 2019-01-23 | Outpatient (CLI) | payer MEDICARE ==
[~2019-01-23] MED LIST changes: +ACHD5005 PO; +DOCU100C37 PO; +FENT1PAT8 TD; +TERB30CR TP
[2019-01-23 14:57] LABS: ALANINE AMINOTRANSFERASE 12 U/L (0-55); ALBUMIN 3.9 GM/DL (3.2-4.5); ALKALINE PHOSPHATASE 90 U/L (40-136); BILIRUBIN,TOTAL 0.8 MG/DL (0.1-1.0); BUN/CREATININE RATIO 18; CALCIUM 9.8 MG/DL (8.5-10.1); CARBON DIOXIDE 26 MMOL/L (21-32); CHLORIDE 100 MMOL/L (98-107); CREATININE SERUM 1.05 MG/DL (0.60-1.30); GFR ESTIMATED > 60; GLUCOSE 142 MG/DL (70-105); POTASSIUM 4.1 MMOL/L (3.6-5.0); SODIUM 136 MMOL/L (135-145); TOTAL PROTEIN 7.9 GM/DL (6.4-8.2)
--- NOTE | 2019-01-23 15:25 | Diagnostic Imaging Report ---
INDICATION: Ulcer on the left foot. TIME OF EXAM: 02:41 p.m. Three views left foot demonstrate amputation of the great toe. Metatarsals and remaining phalanges are intact. No definite bony destructive changes are seen, although there is some flattening of the first metatarsal head. There appears to be a soft tissue defect at the amputation stump. There is some mild demineralization of the distal first metatarsal. Midfoot and hindfoot are unremarkable apart from plantar calcaneal spur. IMPRESSION: Great toe amputation. There is some mild demineralization of the distal first metatarsal. Early osteomyelitis cannot be entirely excluded. No definite bony destructive changes are seen. There is concern for osteomyelitis, MRI may be useful for further evaluation. Dictated by: Dictated on workstation # [id number]
== END ==
LOC: RAD 14:15
PROVIDERS: ATTEND Surgery
DX: E11.621 Type 2 diabetes mellitus with foot ulcer (principal); E11.42 Type 2 diabetes mellitus with diabetic polyneuropathy; L97.514 Non-pressure chronic ulcer of other part of right foot with necrosis of bone; J44.9 Chronic obstructive pulmonary disease, unspecified; M81.0 Age-related osteoporosis without current pathological fracture; Z89.412 Acquired absence of left great toe
CPT/HCPCS: 36415; 73630; 80053; 83036

== ENCOUNTER → 2019-01-23 | Outpatient (CLI) | payer MEDICARE | LOC: WOUNDCARE 11:48 | PROVIDERS: ATTEND Surgery | DX: E11.621 Type 2 diabetes mellitus with foot ulcer (principal); E11.42 Type 2 diabetes mellitus with diabetic polyneuropathy; L97.514 Non-pressure chronic ulcer of other part of right foot with necrosis of bone; J44.9 Chronic obstructive pulmonary disease, unspecified | CPT/HCPCS: 11044; 87070; 87077; 87186; 87205 ==

== ENCOUNTER → 2019-01-30 | Outpatient (CLI) | payer MEDICARE | LOC: WOUNDCARE 09:57 | PROVIDERS: ATTEND Surgery | DX: L97.524 Non-pressure chronic ulcer of other part of left foot with necrosis of bone (principal); E11.621 Type 2 diabetes mellitus with foot ulcer; E11.42 Type 2 diabetes mellitus with diabetic polyneuropathy; J44.9 Chronic obstructive pulmonary disease, unspecified | CPT/HCPCS: 11044 ==

== ENCOUNTER → 2019-02-04 | Outpatient (CLI) | payer MEDICARE | LOC: WOUNDCARE 12:35 | PROVIDERS: ATTEND Surgery | DX: E11.621 Type 2 diabetes mellitus with foot ulcer (principal); L97.524 Non-pressure chronic ulcer of other part of left foot with necrosis of bone; E11.69 Type 2 diabetes mellitus with other specified complication; M86.472 Chronic osteomyelitis with draining sinus, left ankle and foot; E11.42 Type 2 diabetes mellitus with diabetic polyneuropathy; J44.9 Chronic obstructive pulmonary disease, unspecified | CPT/HCPCS: 11044 ==

== ENCOUNTER → 2019-02-11 | Outpatient (CLI) | payer MEDICARE | LOC: WOUNDCARE 12:28 | PROVIDERS: ATTEND Surgery | DX: E11.621 Type 2 diabetes mellitus with foot ulcer (principal); L97.523 Non-pressure chronic ulcer of other part of left foot with necrosis of muscle; E11.69 Type 2 diabetes mellitus with other specified complication; M86.472 Chronic osteomyelitis with draining sinus, left ankle and foot; E11.42 Type 2 diabetes mellitus with diabetic polyneuropathy; J44.9 Chronic obstructive pulmonary disease, unspecified | CPT/HCPCS: 11043 ==

== ENCOUNTER → 2019-02-18 | Outpatient (CLI) | payer MEDICARE | LOC: WOUNDCARE 12:25 | PROVIDERS: ATTEND Surgery | DX: E11.621 Type 2 diabetes mellitus with foot ulcer (principal); L97.522 Non-pressure chronic ulcer of other part of left foot with fat layer exposed; E11.69 Type 2 diabetes mellitus with other specified complication; M86.472 Chronic osteomyelitis with draining sinus, left ankle and foot; E11.42 Type 2 diabetes mellitus with diabetic polyneuropathy; J44.9 Chronic obstructive pulmonary disease, unspecified | CPT/HCPCS: 11042 ==

== ENCOUNTER → 2019-02-25 | Outpatient (CLI) | payer MEDICARE | LOC: WOUNDCARE 12:14 | PROVIDERS: ATTEND Surgery | DX: E11.621 Type 2 diabetes mellitus with foot ulcer (principal); L97.526 Non-pressure chronic ulcer of other part of left foot with bone involvement without evidence of necrosis; E11.69 Type 2 diabetes mellitus with other specified complication; M86.472 Chronic osteomyelitis with draining sinus, left ankle and foot; E11.42 Type 2 diabetes mellitus with diabetic polyneuropathy; J44.9 Chronic obstructive pulmonary disease, unspecified | CPT/HCPCS: 11042 ==

== ENCOUNTER → 2019-03-04 | Outpatient (CLI) | payer MEDICARE | LOC: WOUNDCARE 12:29 | PROVIDERS: ATTEND Surgery | DX: E11.621 Type 2 diabetes mellitus with foot ulcer (principal); L97.526 Non-pressure chronic ulcer of other part of left foot with bone involvement without evidence of necrosis; E11.42 Type 2 diabetes mellitus with diabetic polyneuropathy; J44.9 Chronic obstructive pulmonary disease, unspecified; M86.472 Chronic osteomyelitis with draining sinus, left ankle and foot | CPT/HCPCS: 11042 ==

== ENCOUNTER → 2019-03-11 | Outpatient (CLI) | payer MEDICARE | LOC: WOUNDCARE 12:22 | PROVIDERS: ATTEND Surgery | DX: E11.621 Type 2 diabetes mellitus with foot ulcer (principal); L97.522 Non-pressure chronic ulcer of other part of left foot with fat layer exposed; E11.69 Type 2 diabetes mellitus with other specified complication; M86.472 Chronic osteomyelitis with draining sinus, left ankle and foot; E11.42 Type 2 diabetes mellitus with diabetic polyneuropathy; J44.9 Chronic obstructive pulmonary disease, unspecified | CPT/HCPCS: 11042; 87070; 87205 ==

== ENCOUNTER → 2019-03-18 | Outpatient (CLI) | payer MEDICARE | LOC: WOUNDCARE 12:11 | PROVIDERS: ATTEND Surgery | DX: E11.621 Type 2 diabetes mellitus with foot ulcer (principal); L97.522 Non-pressure chronic ulcer of other part of left foot with fat layer exposed; E11.69 Type 2 diabetes mellitus with other specified complication; M86.472 Chronic osteomyelitis with draining sinus, left ankle and foot; E11.42 Type 2 diabetes mellitus with diabetic polyneuropathy; J44.9 Chronic obstructive pulmonary disease, unspecified | CPT/HCPCS: 11042 ==

== ENCOUNTER → 2019-03-25 | Outpatient (CLI) | payer MEDICARE | LOC: WOUNDCARE 13:39 | PROVIDERS: ATTEND Surgery | DX: E11.621 Type 2 diabetes mellitus with foot ulcer (principal); L97.522 Non-pressure chronic ulcer of other part of left foot with fat layer exposed; E11.69 Type 2 diabetes mellitus with other specified complication; M86.472 Chronic osteomyelitis with draining sinus, left ankle and foot; E11.42 Type 2 diabetes mellitus with diabetic polyneuropathy; J44.9 Chronic obstructive pulmonary disease, unspecified | CPT/HCPCS: 11042 ==

== ENCOUNTER → 2019-04-01 | Outpatient (CLI) | payer MEDICARE | LOC: WOUNDCARE 12:34 | PROVIDERS: ATTEND Surgery | DX: L92.8 Other granulomatous disorders of the skin and subcutaneous tissue (principal); E11.621 Type 2 diabetes mellitus with foot ulcer; L97.522 Non-pressure chronic ulcer of other part of left foot with fat layer exposed; E11.69 Type 2 diabetes mellitus with other specified complication; M86.472 Chronic osteomyelitis with draining sinus, left ankle and foot; E11.42 Type 2 diabetes mellitus with diabetic polyneuropathy; J44.9 Chronic obstructive pulmonary disease, unspecified | CPT/HCPCS: 17250 ==

== ENCOUNTER → 2019-04-08 | Outpatient (CLI) | payer MEDICARE | LOC: WOUNDCARE 12:21 | PROVIDERS: ATTEND Nurse Practitioner | DX: E11.621 Type 2 diabetes mellitus with foot ulcer (principal); L97.522 Non-pressure chronic ulcer of other part of left foot with fat layer exposed; L92.8 Other granulomatous disorders of the skin and subcutaneous tissue; E11.69 Type 2 diabetes mellitus with other specified complication; M86.472 Chronic osteomyelitis with draining sinus, left ankle and foot; E11.42 Type 2 diabetes mellitus with diabetic polyneuropathy; J44.9 Chronic obstructive pulmonary disease, unspecified | CPT/HCPCS: 11042 ==

== ENCOUNTER → 2019-04-15 | Outpatient (CLI) | payer MEDICARE | LOC: WOUNDCARE 12:29 | PROVIDERS: ATTEND Surgery | DX: E11.621 Type 2 diabetes mellitus with foot ulcer (principal); L97.522 Non-pressure chronic ulcer of other part of left foot with fat layer exposed; E11.69 Type 2 diabetes mellitus with other specified complication; M86.472 Chronic osteomyelitis with draining sinus, left ankle and foot; E11.42 Type 2 diabetes mellitus with diabetic polyneuropathy; J44.9 Chronic obstructive pulmonary disease, unspecified | CPT/HCPCS: 11042 ==

== ENCOUNTER → 2019-04-22 | Outpatient (CLI) | payer MEDICARE | LOC: WOUNDCARE 12:41 | PROVIDERS: ATTEND Surgery | DX: E11.621 Type 2 diabetes mellitus with foot ulcer (principal); L97.522 Non-pressure chronic ulcer of other part of left foot with fat layer exposed; E11.42 Type 2 diabetes mellitus with diabetic polyneuropathy; E11.69 Type 2 diabetes mellitus with other specified complication; M86.472 Chronic osteomyelitis with draining sinus, left ankle and foot; J44.9 Chronic obstructive pulmonary disease, unspecified | CPT/HCPCS: 99212 ==